=== PATIENT | female | born 1960 | race Caucasian/White ===

== ENCOUNTER 2021-09-29 14:30 | Outpatient (RCR) | payer BC, SELFPAY | END 2021-09-29 14:35 | disposition home or self-care (01) | LOC: PT 14:30 | PROVIDERS: PCP Family Medicine; Visit Provider Family Medicine Sports Medicine | DX: M65.811 Other synovitis and tenosynovitis, right shoulder (principal); M75.51 Bursitis of right shoulder | CPT/HCPCS: 97010; 97014; 97016; 97110; 97163; G0283 ==

== ENCOUNTER → 2022-04-26 09:35 | Outpatient (CLI) | payer BC, SELFPAY ==
[2022-04-26 19:21] LABS: Alanine Aminotransferase 19 U/L (12-78); Albumin/Globulin Ratio 1.6 (1.1-1.8); Alkaline Phosphatase 154 U/L (38-126); Anion Gap 11.3 mEq/L (5-15); Aspartate Amino Transferase 27 U/L (14-36); Bilirubin,Total 0.5 mg/dl (0.2-1.3); Blood Urea Nitrogen 17 mg/dl (7-17); Calcium 9.6 mg/dl (8.4-10.2); Carbon Dioxide 29 mmol/L (22.0-30.0); Chloride 104 mmol/L (98-107); Chol/HDL Ratio 4.5 (1-3.5); Cholesterol 260 mg/dl (140-200); Estimated Glomerular Filt Rate 63 ml/min (>60); GFR (African American) 77 ML/MIN (>60); Globulin 2.5 g/dL (1.3-3.2); Glucose 92 mg/dl (74-100); HDL Cholesterol 58 mg/dl (40-60); Potassium 4.3 mmoL/L (3.5-5.1); Sodium 140 mmol/L (136-145); Total Protein,Serum 6.5 g/dl (6.3-8.2); Triglycerides 159 mg/dl (30-150); VLDL Cholesterol 32 mg/dL (0-40)
[2022-04-26 19:23] LABS: Basophils # 0.1 K/mm3 (0-0.2); Basophils % 1.2 % (0.1-2.0); Eosinophils # 0.2 K/mm3 (0.0-0.4); Eosinophils % 3.1 % (0.1-12.0); Hematocrit 42.8 % (37.0-47.0); Hemoglobin 13.4 g/dL (12.2-16.2); Lymphocytes # 1.4 K/mm3 (0.7-4.5); Lymphocytes % 24.1 % (10-50); Mean Corpuscular HGB Conc 31.4 g/dL (31.8-35.4); Mean Corpuscular Hemoglobin 29.6 pg (27.0-31.2); Mean Corpuscular Volume 94.3 fl (81-99); Mean Platelet Volume 9.8 fl (7.4-10.4); Monocytes # 0.3 K/mm3 (0.1-1.0); Monocytes % 5.2 % (1.7-9.3); Neutrophils # 3.8 K/mm3 (1.8-7.8); Neutrophils % 66.5 % (37.0-80.0); Platelet Count 292 K/mm3 (142-424); Red Blood Count 4.54 M/mm3 (4.20-5.40); White Blood Count 5.7 K/mm3 (4.8-10.8)
[2022-04-26 19:36] LABS: Free T4 (Free Thyroxine) 1.52 ng/dl (0.78-2.19)
[2022-04-26 19:37] LABS: 25-OH Vitamin D, Total 85.6 ng/mL (30-100)
[2022-04-26 19:51] LABS: Thyroid Stimulating Hormone 1.16 uIU/mL (0.465-4.68)
[2022-04-26 20:09] LABS: Hemoglobin A1C 5.7 % (4.0-6.0)
[2022-04-26 20:33] LABS: Direct LDL Cholesterol 151.93 mg/dL (100-129)
== END ==
PROVIDERS: PCP Nurse Practitioner; Visit Provider Nurse Practitioner
DX: E03.9 Hypothyroidism, unspecified (principal); R73.09 Other abnormal glucose; E55.9 Vitamin D deficiency, unspecified
CPT/HCPCS: 80053; 80061; 82306; 83036; 84439; 84443; 85025

== ENCOUNTER → 2023-01-05 08:54 | Outpatient (CLI) | payer BC, SELFPAY ==
[2023-01-04 19:55] LABS: Vitamin B12 387 pg/mL (239-931)
[2023-01-04 20:06] LABS: Alanine Aminotransferase 43 U/L (12-78); Albumin Level 3.9 g/dl (3.5-5.0); Albumin/Globulin Ratio 1.4 (1.1-1.8); Alkaline Phosphatase 146 U/L (38-126); Anion Gap 9.4 mEq/L (5-15); Aspartate Amino Transferase 39 U/L (14-36); Bilirubin,Total 0.4 mg/dl (0.2-1.3); Blood Urea Nitrogen 19 mg/dl (7-17); Calcium 9.1 mg/dl (8.4-10.2); Carbon Dioxide 29 mmol/L (22.0-30.0); Chloride 105 mmol/L (98-107); Chol/HDL Ratio 2.6 (1-3.5); Cholesterol 176 mg/dl (140-200); Direct LDL Cholesterol 82.01 mg/dL (100-129); Estimated Glomerular Filt Rate 56 ml/min (>60); GFR (African American) 68 ML/MIN (>60); Globulin 2.8 g/dL (1.3-3.2); Glucose 94 mg/dl (74-100); HDL Cholesterol 69 mg/dl (40-60); Potassium 4.4 mmoL/L (3.5-5.1); Sodium 139 mmol/L (136-145); Total Protein,Serum 6.7 g/dl (6.3-8.2); Triglycerides 114 mg/dl (30-150); VLDL Cholesterol 23 mg/dL (0-40)
== END ==
PROVIDERS: PCP Family Medicine; Visit Provider Family Medicine
DX: I10 Essential (primary) hypertension (principal); E53.8 Deficiency of other specified B group vitamins; E78.5 Hyperlipidemia, unspecified
CPT/HCPCS: 80053; 80061; 82607

== ENCOUNTER 2023-08-09 19:15 | Outpatient (CLI) | payer BC, SELFPAY ==
[2023-08-09 19:44] LABS: Alanine Aminotransferase 26 U/L (12-78); Albumin Level 4.1 g/dl (3.5-5.0); Albumin/Globulin Ratio 1.6 (1.1-1.8); Alkaline Phosphatase 140 U/L (38-126); Anion Gap 8.2 mEq/L (5-15); Aspartate Amino Transferase 31 U/L (14-36); Bilirubin,Total 0.6 mg/dl (0.2-1.3); Blood Urea Nitrogen 19 mg/dl (7-17); Calcium 9.2 mg/dl (8.4-10.2); Carbon Dioxide 31 mmol/L (22.0-30.0); Chloride 104 mmol/L (98-107); Chol/HDL Ratio 3.9 (1-3.5); Cholesterol 231 mg/dl (140-200); Estimated Glomerular Filt Rate 56 ml/min (>60); GFR (African American) 68 ML/MIN (>60); Globulin 2.6 g/dL (1.3-3.2); Glucose 94 mg/dl (74-100); HDL Cholesterol 60 mg/dl (40-60); Potassium 4.2 mmoL/L (3.5-5.1); Sodium 139 mmol/L (136-145); Total Protein,Serum 6.7 g/dl (6.3-8.2); Triglycerides 121 mg/dl (30-150); VLDL Cholesterol 24 mg/dL (0-40)
[2023-08-09 20:14] LABS: Thyroid Stimulating Hormone 1.12 uIU/mL (0.465-4.68)
== END 2023-08-09 23:59 ==
LOC: LAB.DROPOF 19:15
PROVIDERS: PCP Family Medicine; Visit Provider Family Medicine
DX: E78.5 Hyperlipidemia, unspecified (principal); E03.8 Other specified hypothyroidism
CPT/HCPCS: 80053; 80061; 84443

== ENCOUNTER 2024-02-28 12:12 | Outpatient (CLI) | payer BC, SELFPAY ==
[2024-02-28 18:43] LABS: Basophils % 0.3 % (0.1-2.0); Eosinophils # 0.2 K/mm3 (0.0-0.4); Eosinophils % 2.1 % (0.1-12.0); Hematocrit 35.6 % (37.0-47.0); Lymphocytes # 1.3 K/mm3 (0.7-4.5); Lymphocytes % 14.3 % (10-50); Mean Corpuscular HGB Conc 30.9 g/dL (31.8-35.4); Mean Corpuscular Hemoglobin 31.6 pg (27.0-31.2); Mean Corpuscular Volume 102.4 fl (81-99); Mean Platelet Volume 9.2 fl (7.4-10.4); Monocytes # 0.3 K/mm3 (0.1-1.0); Monocytes % 3.8 % (1.7-9.3); Neutrophils # 6.9 K/mm3 (1.8-7.8); Neutrophils % 79.4 % (37.0-80.0); Platelet Count 206 K/mm3 (142-424); Red Blood Count 3.47 M/mm3 (4.20-5.40); Red Cell Distribution Width 16.1 % (11.5-17.5); White Blood Count 8.7 K/mm3 (4.8-10.8)
[2024-02-28 19:07] LABS: Anion Gap 6.6 mEq/L (5-15); Blood Urea Nitrogen 15 mg/dl (7-17); Calcium 8.8 mg/dl (8.4-10.2); Carbon Dioxide 31 mmol/L (22.0-30.0); Chloride 106 mmol/L (98-107); Estimated Glomerular Filt Rate 56 ml/min (>60); GFR (African American) 68 ML/MIN (>60); Glucose 95 mg/dl (74-100); Potassium 3.6 mmoL/L (3.5-5.1); Sodium 140 mmol/L (136-145)
[2024-02-28 19:35] LABS: Thyroid Stimulating Hormone 0.73 uIU/mL (0.465-4.68)
== END 2024-02-28 23:59 | disposition home or self-care (01) ==
LOC: LAB.DROPOF 02-29 12:15
PROVIDERS: PCP Family Medicine; Visit Provider Family Medicine
DX: E03.9 Hypothyroidism, unspecified (principal); C50.919 Malignant neoplasm of unspecified site of unspecified female breast
CPT/HCPCS: 80048; 84443; 85025

== ENCOUNTER 2025-01-18 11:30 | Outpatient (CLI) | payer MEDICARE, OTHER, SELFPAY ==
--- OUTSIDE RECORDS SUMMARY | 2024-12-07 10:25 | XMS_ITS | Encounter Summary ---
Author Organization [place] [address] Care Team Providers Care Real Estate Accountant Name Role Phone Yony Walker MD Primary Care Provider [phone] Charlotte Alvarado MD Unavailable [phone]- [phone] Reason for Referral * MRI/CAT Scan (Routine) - Pending Review Specialty Diagnoses / Procedures Referred By Ventura t Referred To Contact Radiology Diagnoses Invasive ductal carcinoma of breast, female, left (HCC) Malignant neoplasm of overlapping sites of left female breast, unspecified estrogen receptor status (HCC) Procedures PET CT SKULL BASE TO MID THIGH Charlotte Alvarado MD [address] [place] [address] Phone: tel: fax: [facility], [place] [address] Phone: tel: fax: Referral ID Status Reason Start Date Expiration Date V isits Requested Visits Authorized [id number] Pending Review 11/09/2024 11/09/2025 5 5 Reason for Visit * MRI/CAT Scan (Routine) - Pending Review Specialty Diagnoses / Procedures Referred By Contac t Referred To Contact Radiology Diagnoses Invasive ductal carcinoma of breast, female, left (HCC) Malignant neoplasm of overlapping sites of left female breast, unspecified estrogen receptor status (HCC) Procedures PET CT SKULL BASE TO MID THIGH Charlotte Alvarado MD [address] [place] [address] Phone: tel: fax: [facility], [place] [address] Phone: tel: fax: Referral ID Status Reason Start Date Expiration Date V isits Requested Visits Authorized [id number] Pending Review 11/09/2024 11/09/2025 5 5 Encounter Details Date Type Department Care Team (Latest Contact Info) Description 12/07/2024 10:25 AM EDT - 12/07/2024 1:33 PM EDT Hospital Encounter [facility], [place] [address] Charlotte Alvarado MD [address] [place] [address] Pre-procedural laboratory examination (Primary Dx); Invasive ductal carcinoma of breast, female, left (HCC); Malignant neoplasm of overlapping sites of left female breast, unspecified estrogen receptor status (HCC) Discharge Disposition: Home or Self Care Social History Tobacco Use Types Packs/Day Years Used Date Smoking Tobacco: Never Smokeless Tobacco: Never Alcohol Use Standard Drinks/Week Comments No 0 (1 standard drink = 0.6 oz pur e alcohol) PHQ-2 Answer Date Recorded PHQ-2 Total Score 0 03/30/2024 Sexually Active Control Partners Comments Yes Post-menopausal Male Comments No Sex and Gender Information Value Date Recorded Sex Assigned at Not on file Legal Sex Female 10:38 AM EST Gender Identity Not on file Sexual Orientation Not on file documented as of this encounter Medications at Time of Discharge acyclovir (ZOVIRAX) 400 mg Oral TabletIndications :H/O cold sores Take 1 Tablet by mouth 2 times daily. 60 Tablet 4 06/29/2024 Calcium Citrate-Vitamin D3 200 mg-3.125 mcg (125 unit) Oral Tablet Take 125 mcg by mouth daily. fluticasone propionate (FLONASE) 50 mcg/actuation Nasl [place], Suspension 1 [place] by Nasal route daily. ibuprofen (ADVIL;MOTRIN) 600 mg Oral Tablet Take 600 mg by mouth 3 times daily. 06/21/2023 LEVOthyroxine (SYNTHROID) 75 mcg Oral Tablet Take 75 mcg by mouth daily. lisinopriL-hydroc hlorothiazide (PRINZIDE;ZESTORE TIC) 10-12.5 mg Oral Tablet Take 0.5 Tablets by mouth daily. 09/30/2022 loperamide (IMODIUM) 2 mg Oral CapsuleIndication s:Invasive ductal carcinoma of breast, female, left (HCC) Take 4 mg by mouth for the first dose and then 2 mg by mouth as needed with every loose bowel movement up to a total of 16 mg/day(8 caps/day). 100 Capsule 2 10/13/2023 multivitamin (THERAGRAN) Oral Tablet Take 1 Tablet by mouth daily. pantoprazole (PROTONIX) 40 mg Oral Tablet, Delayed Release (E.C.)Indications :Gastroesophageal reflux disease without esophagitis Take 1 Tablet by mouth daily. 90 Tablet 4 10/12/2024 prochlorperazine (COMPAZINE) 10 mg Oral TabletIndications :Invasive ductal carcinoma of breast, female, left (HCC) Take 1 tablet by mouth every 6 hours as needed for nausea and vomiting. 30 Tablet 5 09/22/2023 rosuvastatin (CRESTOR) 10 mg Oral Tablet Take 10 mg by mouth daily. 12/19/2023 documented as of this encounter Discharge Disposition Disposition Code Departure Means Destination Home or Self Care documented in this encounter Plan of Treatment Upcoming Encounters Date Type Department Care Team (Late st Contact Info) Description 02/01/2025 8:45 AM EDT Appointment [facility] [place] [address] 02/01/2025 9:15 AM EDT [facility]ointment [facility] [place] [address] Charlotte Alvarado MD [address] [place] [address] 02/01/2025 9:30 AM EDT Appointment [place] [address] 02/08/2025 10:30 AM EDT Appointment [place] [address] 03/01/2025 10:00 AM EDT Appointment [facility] [place], [place] [id number] 03/01/2025 10:30 AM EDT [facility]ointment [facility] [place], [place] [id number] Charlotte Alvarado MD [address] [place] [address] 03/01/2025 11:00 AM EDT Appointment [facility] [place], [place] [id number] 03/08/2025 10:30 AM EDT Appointment [facility] [place], [place] [id number] 04/02/2025 11:20 AM EDT Office Visit [facility] [address] [address] Melony Paula, [employer] SEC[employer]ITY GUARD [address] [place] [address] documented as of this encounter Goals Goal Patient Goal Type Associated Problems Recent Progress Patient-Stated? Author Breast [facility] Breast Health On track(2020 11:50 AM EDT) Rebecca Geiger, RN Note: Patient acknowledges understanding of new diagnosis, plan of care, available resources and how to contact Nurse Navigator with any future questions or concerns. Breast [facility] Breast Health No Tere Saucedo, RN Note: Patient will maintain a healthy weight. Breast [facility] Breast Health No Basia Martínez, RN Note: Patient will be compliant with monthly Self Breast Exams and is aware of to who to contact for any unusual or concerning findings. documented as of this encounter Procedures Procedure Name Priority Date/Time Associated Diagnosis Comments PET CT SKULL BASE TO MID THIGH Routine 12/07/2024 12:04 PM EDT Invasive ductal carcinoma of breast, female, left (HCC) Malignant neoplasm of overlapping sites of left female breast, unspecified estrogen receptor status (HCC) GLUCOSE METER POC Routine 12/07/2024 10: 30 AM EDT documented in this encounter Results * PET CT SKULL BASE TO MID THIGH (12/07/2024 12:04 PM EDT) Anatomical Region Laterality Modality Positron Emissio n Tomography (PET) 12/07/2024 12:0 4 PM EDT Impressions 12/07/2024 1:16 PM EDT There is a new focus of hypermetabolic activity in the deep right breast at approximately 4:30 location. There is a new hypermetabolic mediastinal lymph node anterior to the right mainstem bronchus. There is increased hypermetabolic activity involving right hilar lymph nodes. There is similar hypermetabolic activity in subcarinal lymph node. - Note: Radiology results need to be interpreted within a comprehensive clinical context. If you have questions about the radiology report, please contact the office of the ordering clinician. Narrative 12/07/2024 1:[address] SKULL BASE TO MID THIGH, 12/07/2024 12:04 PM CLINICAL HISTORY: C50.912-Malignant neoplasm of unspecified site of left female breast (HCC)-ICD-10-CM C50.812-Malignant neoplasm of overlapping sites of left female breast (HCC)-ICD-10-CM. COMPARISON: Prior PET CTs, most recent 08/23/2024. PROCEDURE COMMENTS: 14 mCi 18F-fluorodeoxyglucose (FDG) was administered I.V. Serum blood glucose at the time of the injection was 84 mg/dL. Uptake time was approximately 45 minutes. Scanning performed from the skull vertex to the mid thigh. As an integrated part of the study, noncontrast CT scanning performed for attenuation correction and localization purposes. Dose 1 : CT DLP Total : 418.13 mGycm DLP Spiral Max : 409.91 mGycm Maximum CTDI Vol : 3.85 mGy FINDINGS: Normal distribution of physiologic background activity was present including gastrointestinal, genitourinary, cardiovascular, neurologic systems. Index activity in the right lobe of the liver was 2.5 SUV max. Head and Neck: No hypermetabolic foci. Chest: There is a new focus of hypermetabolic activity in the deep right breast at approximately 4:30 location demonstrating 3.9 SUV max. Increased hypermetabolic activity involving right hilar lymph nodes now measuring up to 6.6 SUV max versus 5.4 on prior. There is similar hypermetabolic activity in subcarinal lymph node measuring 5.2 SUV max versus 5.5 on prior. There is a new hypermetabolic mediastinal lymph node anterior to the right mainstem bronchus measuring 3.9 SUV max. Abdomen and pelvis: No hypermetabolic foci. Musculoskeletal: Diffuse activity throughout the axial and proximal appendicular skeletal medullary bone suggesting red marrow hyperplasia.. Notable CT findings: No developing mass lesion. Procedure Note Roscoe Pollock MD - 12/07/[address] SKULL BASE TO MID THIGH, 12/07/2024 12:04 PM CLINICAL HISTORY: C50.912-Malignant neoplasm of unspecified site of leftfemale breast (HCC)-ICD-10-CM C50.812-Malignant neoplasm of overlapping sites of left female breast (HCC)-ICD-10-CM. COMPARISON: Prior PET CTs, most recent 08/23/2024. PROCEDURE COMMENTS: 14 mCi 18F-fluorodeoxyglucose (FDG) was administeredI.V. Serum blood glucose at the time of the injection was 84 mg/dL. Uptake timewas approximately 45 minutes. Scanning performed from the skull vertex to themid thigh. As an integrated part of the study, noncontrast CT scanningperformed for attenuation correction and localization purposes. Dose 1 : CT DLP Total : 418.13 mGycm DLP Spiral Max : 409.91 mGycm Maximum CTDI Vol : 3.85 mGy FINDINGS: Normal distribution of physiologic background activity waspresent including gastrointestinal, genitourinary, cardiovascular, neurologicsystems. Index activity in the right lobe of the liver was 2.5 SUV max. Head and Neck: No hypermetabolic foci. Chest: There is a new focus of hypermetabolic activity in the deep rightbreast at approximately 4:30 location demonstrating 3.9 SUV max. Increased hypermetabolic activity involving right hilar lymph nodes now measuring upto 6.6 SUV max versus 5.4 on prior. There is similar hypermetabolic activityin subcarinal lymph node measuring 5.2 SUV max versus 5.5 on prior. There luanne new hypermetabolic mediastinal lymph node anterior to the right mainstembronchus measuring 3.9 SUV max. Abdomen and pelvis: No hypermetabolic foci. Musculoskeletal: Diffuse activity throughout the axial and proximal appendicular skeletal medullary bone suggesting red marrow hyperplasia.. Notable CT findings: No developing mass lesion. IMPRESSION: There is a new focus of hypermetabolic activity in the deep right breastat approximately 4:30 location. There is a new hypermetabolic mediastinallymph node anterior to the right mainstem bronchus. There is increasedhypermetabolic activity involving right hilar lymph nodes. There is similarhypermetabolic activity in subcarinal lymph node. - Note: Radiology results need to be interpreted within a comprehensiveclinical context. If you have questions about the radiology report, please contactthe office of the ordering clinician. us Charlotte Alvarado MD IMG PET ORDERABLES F inal Result * GLUCOSE METER POC (12/07/2024 10:30 AM EDT) [facility] Glucose Meter POC 84 70 - 100 mg/dL 12/07/2024 10:32 AM EDT [facility] Sample Type Capillary 12/07/2024 10:32 AM EDT [facility] Patient Status Non-Critical Patient 12/07/2024 10:32 AM EDT [facility] Blood BLOOD SPECIMEN / Unknown 12/07/2024 10:30 AM EDT 12/07/2024 10:32 AM EDT us Charlotte Alvarado MD POINT OF CARE TEST O RDERABLES Final Result [facility] [address] [place] [address] documented in this encounter Visit Diagnoses Diagnosis Pre-procedural laboratory examination- Primary Invasive ductal carcinoma of breast, female, left (HCC) Malignant neoplasm of overlapping sites of left female breast, unspecified estrogen receptor status (HCC) documented in this encounter Administered Medications Inactive Administered Medications - up to 1 most recent administrations Medication Order MAR Action Action Date Dose Rate Site fluorodeoxyglucose (FDG) injection 14 millicurie 14 millicurie, Intravenous, ONCE PRN, 1 dose, Starting on Tue12/07/24 at 1052, Until Tue12/07/24 at 1035, Radiography/Imaging, Radiology Procedure, Administration dose must be within 10% of the ordered dose for radiopharmaceutical medications., Radiology Given 12/07/2024 10:35 AM EDT 14 millicuries Right Arm sodium chloride 0.9% syringe Intravenous, ONCE PRN, 1 dose, Starting on Tue12/07/24 at 1052, Until Tue12/07/24 at 1035, Line Care, Flush peripheral lines every 12 hours, central lines every 8 hours, and after IV medication, Radiology Given 12/07/2024 10:35 AM EDT 10 mL Right Arm documented in this encounter Care Teams Real Estate Accountant Relationship Specialty Start Date End Date Yony Walker MD [address] [place] [address] PCP - General Family Medicine 04/07/20 Charlotte Alvarado MD [address] [place] [address] Medical Oncologist Internal Medicine-Hematology and Oncology 05/14/20 documented as of this encounter
--- OUTSIDE RECORDS SUMMARY | 2024-12-07 13:34 | XMS_ITS | Encounter Summary ---
Author Organization [place] [address] Care Team Providers Care Public Health Director Name Role Phone Yony Walker MD Primary Care Provider [phone] [phone] Charlotte Alvarado MD Unavailable [phone]- [phone] Reason for Visit * Physical Therapy (Routine) - Pending Review Specialty Diagnoses / Procedures Referred By Contac t Referred To Contact Physical Therapist / Physical Therapy Diagnoses Lymphedema of left arm Invasive ductal carcinoma of breast, female, left (HCC) Atser Parks, TONGUE AND GROOVE MACHINE FEEDER [address] [place] [address] Phone: tel: fax: Denisa Dueñas PT Referral ID Status Reason Start Date Expiration Date Visits Requested Visits Authorized [id number] Pending Review Specialty Services Required 09/14/2024 09/14/2025 1 20 Encounter Details Date Type Department Care Team (Latest Contact Info) Description 12/07/2024 1:34 PM EDT - 12/07/2024 11:59 PM EDT Hospital Encounter [facility] Physical Therapy [address] [place] [address] Denisa Dueñas, NOÉ Discharge Disposition: Home or Self Care Social [...] on file documented as of this encounter Discharge Summaries * Denisa Dueñas, PT - 12/07/2024 1:45 PM EDT Images from the original note were not included. Outpatient Physical Therapy Discharge Summary Date: 12/07/2024 Name: Michelle Nolan : 1960 Subjective: Patient is a 64 y.o. female referred to OPPT by Aster Parks APRN. Onset Date: 09/06/24 Diagnosis: Left UE Lymphedema Objective: Patient seen by OPPT from 10/19/24 to 12/07/24 for 2 visits Treatment consisted of therex, manual therapy Medication change: Calcium Patient Status at Discharge: FOTO Score & PSFS FOTO??: (1-100) Initial 10/19/2024 Re-Assess Score (Predicted) 72 (77) 73 PSFS: Patient will be able to... (0-10) Handwork 10/27 11/27 Sew 10/27 11/27 Hold items 10/27 12/27 Girth Measurements: Date: 12/07/24 10/19/2024 10/19/2024 (cm) Left Left Right Metacarpals 18.5 18.5 18.8 Diagonal Palm 19.9 20.8 20.2 1st IPJ 6.1 6.2 6.4 2nd DIP 5.4 5.2 5.4 2nd PIP 6.0 6.0 6.3 3rd DIP 5.3 5.3 5.4 3rd PIP 5.8 5.7 5.8 4th DIP 5.0 5.0 5.0 4th PIP 5.3 5.4 5.5 5th DIP 4.6 4.7 4.5 5th PIP 5.1 5.3 5.2 Wrist 16.8 16.5 15.5 2 above 19.4 19.2 16.5 4 above 22.7 21.2 19.5 6 above 26.0 25.5 22.5 8 above 27.7 27.0 24.1 Elbow 27.8 28.0 25.0 2 above 30.0 29.4 26.6 4 above 31.0 31.0 28.4 6 above 30.6 31.6 30.2 Chest/Breast Circumference 97.0 93.2 Axillary Circumference 97.0 94.0 Umbilical Circumference 90.9 89.1 Steps to lymphedema prevention: Independent HEP: Independent Self MLD: Independent as able - waiting on home pump Compression: Independent Assessment: Pt has been compliant with her self care for > 4 weeks as documented above, but symp are actually a little worse than on eval. Pt is hoping that the home pump will give her better clearance of thefluid Goals Short Term Goals (set for 2 weeks) Patient will be independent with HEP in order to promote long-term health and reduce risk for injury. [] Unmet [] Progressing [x] Met Patient will demonstrate/verbalize understanding of the steps to lymphedema prevention to minimize risk of progression [] Unmet [] Progressing [x] Met Obtain compression garment with independent donning/doffing. [] Unmet [] Progressing [x] Met Senior Care Goals: (set for 6 weeks) Patient will demonstrate independence with compression application to decrease lymphedema progression [] Unmet [] Progressing [x] Met Patient will be independent with self MLD to decrease lymphedema progression [] Unmet [] Progressing [x] Met Waiting on home pump Patient will present with reduction in girth measurements by 0.3 cm to increase functional use of the affected extremity [x] Unmet [] Progressing [] Met Improve PSFS scores by 2 points to show overall improvement with increase ease with use of left hand [] Unmet [x] Progressing [] Met Improve function score on FOTO to 75 for increase ease with use of left hand [] Unmet [x] Progressing [] Met Plan: Patient is currently discharged from OPPT Advised to continue self care Denisa Dueñas, PT 12/07/2024 documented in this encounter Medications at Time of Discharge acyclovir (ZOVIRAX) 400 mg Oral TabletIndications :H/O cold sores Take 1 Tablet by mouth 2 times daily. 60 Tablet 4 06/29/2024 Calcium Citrate-Vitamin D3 200 mg-3.125 mcg (125 unit) Oral Tablet Take 125 mcg by mouth daily. fluticasone propionate (FLONASE) 50 mcg/actuation Nasl [place], Suspension 1 [place] by Nasal route daily. ibuprofen (ADVIL;MOTRIN) 600 [...] or Self Care documented in this encounter Progress Notes * Provider, Unknown - 12/07/2024 3:44 PM EDT * Denisa Dueñas, PT - 12/07/2024 1:45 PM EDT Images from the original note were not included. Lymphedema PT Reassessment/Treatment Note (Reassessment for dates 10/19/24 to 12/07/24) Patient Name: Michelle Nolan : 1960 Visit #: 2 Onset Date: 09/06/24 MD Diagnosis: Lymphedema of left arm Invasive ductal carcinoma of breast, female, left (HCC) Restrictions/Precautions: [place] Hx [place] Referring Physician: Charly Radiation Oncologist: Dr. Myrick Medical Oncologist: Dr. Alvarado Surgeon: Dr. Tahmina HERRERA Follow Up: 12/10/24 Evaluation Date: 10/19/2024 Reassessment Due: 01/06/25 Primary Insurance: MEDICARE/MEDICARE [place] PART A AND B Secondary Insurance: [employer] Insurance Authorization: AMB REFERRAL TO PHYSICAL THERAPY Authorized (09/14/2024-09/14/2025) Visits Requested Visits Authorized Visits Completed Visits Scheduled Details Referral ID: [id number] Authorization Status Reason: Covered Benefit Authorization Comments: -- Referred To: Denisa Dueñas, PT at [facility] PT Referred By: Aster Parks APRN at [facility], [facility] Creation Date: 09/14/2024 Referral Reasons: Specialty Services Required Referral Order: AMB REFERRAL TO PHYSICAL THERAPY Time In/Out: 1345/1441 Timed Treatment Minutes: Manual therapy techniques 45 minutes Therapeutic Exercise 11 minutes Total Timed Code Treatment Minutes: 56 Untimed Treatment Minutes: None Total Treatment Minutes: 56 Medication Changes: Calcium Subjective: Pt has been monitoring her diet, performing daily skin, wearing her 20-30 mmHg compression sleeve & glove, doing her exercises, performing daily self MLD, & elevating her left UE since she came to PT on 10/19/24 (> 4 weeks). Pt feels like the arm may be a little leon but isn't sure Objective/Treatment: FOTO Score & PSFS FOTO??: (1-100) Initial 10/19/2024 Re-Assess Score (Predicted) 72 (77) 73 PSFS: Patient will be able to... (0-10) Handwork 10/27 11/27 Sew 10/27 11/27 Hold items 10/27 12/27 Girth Measurements: Date: 12/07/24 10/19/2024 10/19/2024 (cm) Left Left Right Metacarpals 18.5 18.5 18.8 Diagonal Palm 19.9 20.8 20.2 1st IPJ 6.1 6.2 6.4 2nd DIP 5.4 5.2 5.4 2nd PIP 6.0 6.0 6.3 3rd DIP 5.3 5.3 5.4 3rd PIP 5.8 5.7 5.8 4th DIP 5.0 5.0 5.0 4th PIP 5.3 5.4 5.5 5th DIP 4.6 4.7 4.5 5th PIP 5.1 5.3 5.2 Wrist 16.8 16.5 15.5 2 above 19.4 19.2 16.5 4 above 22.7 21.2 19.5 6 above 26.0 25.5 22.5 8 above 27.7 27.0 24.1 Elbow 27.8 28.0 25.0 2 above 30.0 29.4 26.6 4 above 31.0 31.0 28.4 6 above 30.6 31.6 30.2 Chest/Breast Circumference 97.0 93.2 Axillary Circumference 97.0 94.0 Umbilical Circumference 90.9 89.1 Steps to lymphedema prevention: Independent HEP: Independent Self MLD: Independent as able - waiting on home pump Treatment Short Neck: Yes Chest (anterior): right Axilla: right Groin: left Abdominals: Superficial and Deep Breathing Upper extremity: left With patient in Supine Compression: Sleeve: Independent Other: Removal instructions given, including symptoms of circulation compromise: Yes Instructed to call with any questions or problems: Yes HEP Issued: Yes Self MLD handout issued, with instruction: Yes Additional comments: Advised pt to con't with self care & to contact PT with any future questions/concerns. Sent updated measurements to [employer] Assessment Pt has been compliant with her self care for > 4 weeks as documented above, but symp are actually a little worse than on eval. Pt is hoping that the home pump will give her better clearance of thefluid Goals Short Term Goals (set for 2 weeks) Patient will be independent with HEP in order to promote long-term health and reduce risk for injury. [] Unmet [] Progressing [x] Met Patient will demonstrate/verbalize understanding of the steps to lymphedema prevention to minimize risk of progression [] Unmet [] Progressing [x] Met Obtain compression garment with independent donning/doffing. [] Unmet [] Progressing [x] Met Street Openings Inspector Goals: (set for 6 weeks) Patient will demonstrate independence with compression application to decrease lymphedema progression [] Unmet [] Progressing [x] Met Patient will be independent with self MLD to decrease lymphedema progression [] Unmet [] Progressing [x] Met Waiting on home pump Patient will present with reduction in girth measurements by 0.3 cm to increase functional use of the affected extremity [x] Unmet [] Progressing [] Met Improve PSFS scores by 2 points to show overall improvement with increase ease with use of left hand [] Unmet [x] Progressing [] Met Improve function score on FOTO to 75 for increase ease with use of left hand [] Unmet [x] Progressing [] Met Plan Discharge with the hope that pt gets her home pump soon Electronically signed by: Signed: Denisa Dueñas PT Date: 12/07/2024 documented in this encounter Plan of Treatment Upcoming Encounters Date Type Department Care Team (Late st Contact Info) Description 02/01/2025 8:45 AM EDT Appointment [facility] [address] 02/01/2025 9:15 AM EDT [facility]ointment [facility] [place] [address] Charlotte Alvarado MD [address] [place] [address] 02/01/2025 9:30 AM EDT [facility] [place] [address] 02/08/2025 10:30 AM EDT [facility]ointment [facility] [place] [address] 03/01/2025 10:00 AM EDT Appointment [facility] [place] [address] 03/01/2025 10:30 AM EDT Appointment [facility] [place] [address] Charlotte Alvarado MD [address] [place] [address] 03/01/2025 11:00 AM EDT Appointment [facility] [place] [address] 03/08/2025 10:30 AM EDT Appointment [facility] [place], [place] [id number] 04/02/2025 11:20 AM EDT Office Visit [facility] [address] [facility] [address] [place] [address] Melony Paula, VACUUM CONDITIONER OPERATOR [address] [place] [address] documented as of this encounter Goals Goal Patient Goal Type Associated Problems Recent Progress Patient-Stated? Author Breast Health Breast Health On track(2020 11:50 AM EDT) Rebecca Geiger, RN Note: Patient acknowledges understanding of new diagnosis, plan of care, available resources and how to contact Nurse Navigator with any future questions or concerns. Breast [facility] Breast Health No Tere Saucedo, RN Note: Patient will maintain a healthy weight. Breast Health Breast Health No Basia Martínez, RN Note: Patient will be compliant with monthly Self Breast Exams and is aware of to who to contact for any unusual or concerning findings. documented as of this encounter Visit Diagnoses Not on filedocumented in this encounter Care Teams Public Health Director Relationship Specialty Start Date End Date Yony Walker MD [address] [facility] [address] [facility] [address] PCP - General Family Medicine 04/07/20 Charlotte Alvarado MD [address] [facility] [place] [id number] Medical Oncologist Internal Medicine-Hematology and Oncology 05/14/20 documented as of this encounter
--- OUTSIDE RECORDS SUMMARY | 2024-12-10 10:28 | XMS_ITS | Encounter Summary ---
Author Organization [place] [address] Care Team Providers Care Business Owner/Engineer Name Role Phone Yony Walker MD Primary Care Provider [phone] [phone] Charlotte Alvarado MD Unavailable [phone]- [phone] Irene Cheema RN Unavailable Unavailabl e Encounter Details Date Type Department Care Team (Latest Contact Info) Description 12/10/2024 10:28 AM EDT - 12/10/2024 10:48 AM EDT Hospital Encounter [place] [address] Charlotte Alvarado MD [address] [place] [address] Invasive ductal carcinoma of breast, female, left (HCC) (Primary Dx) Discharge Disposition: Home or Self Care Social [...] daily. fluticasone propionate (FLONASE) 50 mcg/actuation Nasl [place], Suspension 1 [place] by Nasal route daily. ibuprofen (ADVIL;MOTRIN) 600 [...] AM EDT Appointment [place] [address] 02/01/2025 9:15 AM EDT [facility]ointment [facility] [place] [address] Charlotte Alvarado MD [address] [place] [address] 02/01/2025 9:30 AM EDT Appointment [facility] [place] [address] 02/08/2025 10:30 AM EDT Appointment [facility] [place] [address] 03/01/2025 10:00 AM EDT Appointment [place] [address] 03/01/2025 10:30 AM EDT Appointment [facility] [place] [address] Charlotte Alvarado MD [address] [place] [address] 03/01/2025 11:00 AM EDT [facility] [place] [address] 03/08/2025 10:30 AM EDT [facility] [address] 04/02/2025 11:20 AM EDT Office Visit [facility] Pulmonology [facility] [address] [address] Melony Paula, LITHOGRAPH PRESS OPERATOR [address] [place] [address] documented as of this encounter Goals Goal Patient Goal Type Associated Problems Recent Progress Patient-Stated? Author Breast Health Breast Health On track(2020 11:50 AM EDT) Rebecca Geiger, RN Note: Patient acknowledges understanding of new diagnosis, plan of care, available resources and how to contact Nurse Navigator with any future questions or concerns. Breast Health Breast Health No Tere Saucedo, RN Note: Patient will maintain a healthy weight. Breast Health Breast Health No Basia Martínez, RN Note: Patient will be compliant with monthly Self Breast Exams and is aware of to who to contact for any unusual or concerning findings. documented as of this encounter Procedures Procedure Name Priority Date/Time Associated Diagnosis Comments CBC WITH DIFF STAT 12/10/2024 10:48 AM EDT Invasive ductal carcinoma of breast, female, left (HCC) COMPREHENSIVE METABOLIC PANEL STAT 12/10/2024 10:48 AM EDT Invasive ductal carcinoma of breast, female, left (HCC) documented in this encounter Results * (ABNORMAL) COMPREHENSIVE METABOLIC PANEL (12/10/2024 10:48 AM EDT) Sodium 141 136 - 145 mmol/L 12/10/2024 11:12 AM EDT [facility] Potassium 3.1(L) 3.5 - 5.0 mmol/L 12/10/2024 11:12 AM EDT [facility] Chloride 110(H) 98 - 107 mmol/L 12/10/2024 11:12 AM EDT [facility] Total CO2 23 22 - 29 mmol/L 12/10/2024 11:12 AM EDT [facility] Anion Gap 8 7 - 16 mmol/L 12/10/2024 11:12 AM EDT [facility] Calcium 8.0(L) 8.8 - 10.4 mg/dL 12/10/2024 11:12 AM EDT [facility] Glucose Lvl 92 70 - 99 mg/dL 12/10/2024 11:12 AM EDT [facility] BUN 11 8 - 23 mg/dL 12/10/2024 11:12 AM EDT [facility] Creatinine 0.89 0.51 - 1.30 mg/dL 12/10/2024 11:12 AM EDT [facility] Albumin 3.6 3.2 - 4.6 gm/dL 12/10/2024 11:12 AM EDT [facility] Total Protein 5.6(L) 6.4 - 8.3 gm/dL 12/10/2024 11:12 AM EDT [facility] Bili Total <0.2(L) 0.2 - 1.3 mg/dL 12/10/2024 11:12 AM EDT [facility] ALT 12 <=41 U/L 12/10/2024 11:12 AM EDT [facility] AST 15 <=40 U/L 12/10/2024 11:12 AM EDT [facility] Alk Phos 117 36 - 123 U/L 12/10/2024 11:12 AM EDT [facility] eGFR (CKD-EPIcr 2020) 72 >=60 mL/min/1.7 3 m2 12/10/2024 11:12 AM EDT [facility] Comment:Estimated GFR was ca lculated using the CKD-EPIcr (2020) equation refit without race. The equation is recommended by the National Kidney Foundation - [place] [employer] of Nephrology Task Force. Blood VENOUS STRUCTURE / Unknown Port / Unknown 12/10/2024 10:48 AM EDT 12/10/2024 10:51 AM EDT us Charlotte Alvarado MD CHEMISTRY ORDERABLES Final Result [place] [id number] * (ABNORMAL) CBC WITH DIFF (12/10/2024 10:48 AM EDT) WBC 5.0 3.7 - 10.3 x10(3)/mc L 12/10/2024 10:57 AM EDT [facility] RBC 3.41(L) 3.90 - 5.20 x10(6)/mc L 12/10/2024 10:57 AM EDT [facility] Hgb 10.9(L) 11.2 - 15.7 g/dL 12/10/2024 10:57 AM EDT [facility] Hct 33.5(L) 34.0 - 45.0 % 12/10/2024 10:57 AM EDT [facility] MCV 98.2 80.0 - 100.0 fL 12/10/2024 10:57 AM EDT [facility] MCH 32.0 26.0 - 34.0 pg 12/10/2024 10:57 AM EDT [facility] MCHC 32.5 30.7 - 35.5 g/dL 12/10/2024 10:57 AM EDT [facility] RDW 15.7(H) <=14.9 % 12/10/2024 10:57 AM EDT [facility] Platelet 274 155 - 369 x10(3)/mc L 12/10/2024 10:57 AM EDT [facility] MPV 10.1 8.8 - 12.5 fL 12/10/2024 10:57 AM EDT [facility] Neut # Prelim 3.7 1.6 - 6.1 x10(3)/mc L 12/10/2024 10:57 AM EDT [facility] Comment:Preliminary automate d absolute neutrophil count. Value may change if manual differential is indicated. Neut Percent 74.4 % 12/10/2024 10:57 AM EDT [facility] Comment:Neutrophils equals s egs plus bands Imm Gran% 0.0 % 12/10/2024 10:57 AM EDT [facility] Comment:Automated count of m etamyelocytes, myelocytes and promyelocytes. Lymph Percent 15.3 % 12/10/2024 10:57 AM EDT [facility] [place] Percent 8.5 % 12/10/2024 10:57 AM EDT [facility] Eos Percent 1.4 % 12/10/2024 10:57 AM EDT [facility] Baso Percent 0.4 % 12/10/2024 10:57 AM EDT [facility] Neut # 3.7 1.6 - 6.1 x10(3)/mc L 12/10/2024 10:57 AM EDT [facility] Comment:Neutrophils equals s egs plus bands IMMGRAN# 0.0 0.0 - 0.1 x10(3)/mc L 12/10/2024 10:57 AM EDT [facility] Comment:Automated count of m etamyelocytes, myelocytes and promyelocytes. An absolute IG <0.1 is reported as 0.0. Lymph # 0.8(L) 1.2 - 3.9 x10(3)/mc L 12/10/2024 10:57 AM EDT [facility] [place] # 0.4 0.3 - 0.9 x10(3)/mc L 12/10/2024 10:57 AM EDT [facility] Eos# 0.1 0.0 - 0.5 x10(3)/mc L 12/10/2024 10:57 AM EDT [facility] Baso # 0.0 0.0 - 0.1 x10(3)/mc L 12/10/2024 10:57 AM EDT [facility] Blood VENOUS STRUCTURE / Unknown Port / Unknown 12/10/2024 10:48 AM EDT 12/10/2024 10:51 AM EDT us Charlotte Alvarado MD HEMATOLOGY ORDERABLE S Final Result [facility] [address] [place], [place] [id number] documented in this encounter Visit Diagnoses Diagnosis Invasive ductal carcinoma of breast, female, left (HCC)- Primary documented in this encounter Administered Medications Inactive Administered Medications - up to 1 most recent administrations Medication Order MAR Action Action Date Dose Rate Site sodium chloride 0.9 % sterile syringe 10 mL 10 mL, Intravenous, ONCE, 1 dose, On Tue12/10/24 at 1045, For initial access of Venous Access Device., Dx: 1. Invasive ductal carcinoma of breast, female, left (HCC)Indications:Invasive ductal carcinoma of breast, female, left (HCC) Given 12/10/2024 10:48 AM EDT 10 mL documented in this encounter Orders Medications Ordered That Shaun ht Not Have Been Administered Count Last Ordered Date First Ordered Date sodium chloride 0.9 % steril e syringe 10 mL 1 12/10/2024 documented in this encounter Care Teams Business Owner/Engineer Relationship Specialty Start Date End Date Yony Walker MD [facility] [address] [facility] [place] [address] PCP - General Family Medicine 04/07/20 Charlotte Alvarado MD 1 [facility] [place] [id number] Medical Oncologist Internal Medicine-Hematology and Oncology 05/14/20 Irene Cheema RN Infusion Therapy 12/10/24 12/10/24 documented as of this encounter
--- OUTSIDE RECORDS SUMMARY | 2024-12-10 10:49 | XMS_ITS | Encounter Summary ---
Author Organization [place] [address] Care Team Providers Care Radio Electronics Technician Name Role Phone Ynoy Walker MD Primary Care Provider [phone] Charlotte Alvarado MD Unavailable [phone]- [phone] Irene Cheema RN Unavailable Unavailabl e Reason for Referral * Consultation (Routine) - Pending Review Specialty Diagnoses / Procedures Referred By Contac t Referred To Contact Pulmonology Diagnoses Invasive ductal carcinoma of breast, female, left (HCC) Hilar adenopathy Procedures IA OFFICE/OUTPATIENT NEW MODERATE MDM 45 MINUTES Charlotte Alvarado MD [address] [place] [address] Phone: tel: fax: Maryanne Lawler MD [address] [place] [address] Phone: tel: fax: Referral ID Status Reason Start Date Expiration Date V isits Requested Visits Authorized [id number] Pending Review 12/10/2024 12/10/2025 1 1 Comments Metastatic breast cancer and overall has been responding to tx. Would like evaluation of hilar adenopathy to see if related to this diagnosis vs alternative. Consider bronch/EBUS. Reason for Visit * Reason Comments Follow-up Breast Cancer Chemotherapy Results PET 12/07 Encounter Details Date Type Department Care Team (Latest Contact Info) Description 12/10/2024 10:49 AM EDT - 12/10/2024 11:22 AM EDT Hospital Encounter [facility] [place] [address] Charlotte Avlarado MD [address] [place] [id number] Invasive ductal carcinoma of breast, female, left (HCC) (Primary Dx); Hilar adenopathy Discharge Disposition: Home or Self Care Social [...] on file documented as of this encounter Last Filed Vital Signs Vital Sign Reading Time Taken Comments Blood Pressure 148/79 12/10/2024 10:54 AM EDT Pulse 93 12/10/2024 10:54 AM EDT Temperature 36.8 C (98.2 F) 12/10/2024 10:54 AM EDT Respiratory Rate 16 12/10/2024 10:54 AM EDT Oxygen Saturation 98% 12/10/2024 10:54 AM EDT Inhaled Oxygen Concentration - - Weight 69.4 kg (153 lb 1.6 oz) 12/10/2024 10:54 AM EDT Height 167.6 cm (5' 6 ) 12/10/2024 10:54 AM EDT Body Mass Index 24.71 12/10/2024 10:54 AM EDT documented in this encounter Medications at Time of Discharge acyclovir (ZOVIRAX) 400 mg Oral TabletIndications :H/O cold sores Take 1 Tablet by mouth 2 times daily. 60 Tablet 4 06/29/2024 Calcium Citrate-Vitamin D3 200 mg-3.125 mcg (125 unit) Oral Tablet Take 125 mcg by mouth daily. fluticasone propionate (FLONASE) 50 mcg/actuation Nasl Ronald, Suspension 1 Ronald by Nasal route daily. ibuprofen (ADVIL;MOTRIN) 600 [...] documented in this encounter Progress Notes * Charlotte Alvarado MD - 12/10/2024 11:00 AM EDT Images from the original note were not included. Patient: Michelle Nolan [facility]: [id number] Date of : 1960 Age: 64 y.o. Date of Service: 12/10/2024 HEMATOLOGY/ONCOLOGY FOLLOW UP VISIT Primary Lens Grinder Rough & Oncologist: Charlotte Alvarado MD DIAGNOSIS & TREATMENT HISTORY: Oncology History Invasive ductal carcinoma of breast, female, left (HCC) 03/14/2020 Initial Diagnosis Invasive ductal carcinoma of left breast 03/14/2020 - Pathology Left breast, 2:00, ill defined area with calcifications, core biopsy: - Invasive ductal carcinoma, grade 2. - Ductal carcinoma in situ, high nuclear grade, solid and cribriform types with comedonecrosis. - Microcalcifications are not identified. - Invasive tumor involves all cores, spanning up to 8 mm in greatest dimension. ER Low positive 4% IA Positive 2% HER2 Negative 03/31/2020 - Genetics [employer] 84: No actionable mutations detected. 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 - Extracapsular extension present. - Many invasive ductal carcinoma deposits (up to 1.5 cm in linear extent). - Lymphovascular invasion. - High grade ductal carcinoma in situ in background mammary tissue 04/18/2020 - 09/05/2020 Chemotherapy Dose dense adriamycin and cyclophosphamide + G-CSF every 14 days for 4 cycles, followed by weekly paclitaxel for 12 doses (dose reduced for neuropathy). Medical Oncologist: Dr. Charlotte Craig 04/23/2020 - Imaging PET Skull base to midthigh IMPRESSION: No evidence of metastatic neoplasm. Borderline hypermetabolic activity within 2 small LEFT axillary lymph nodes. 11/03/2020 - Pathology A) Lymph nodes, left axillary contents: - Metastatic ductal carcinoma noted in three of three lymph nodes. - One node with macro metastatic carcinoma, 2.2 mm in size with extracapsular extension. - Two lymph nodes with micro metastatic carcinoma. B) Left breast, segmentectomy: - Small focus of residual invasive ductal adenocarcinoma, Grade 2, about 1 mm in size; closest margin is inferior at 3 mm. - Residual extensive ductal carcinoma in situ, high grade; cribriform and solid patterns. - In situ carcinoma involves 7 out of 9 blocks of breast tissue. Therapy and previous biopsy effects noted. 12/08/2020 - 01/16/2021 Radiation Tx External beam radiotherapy to a total dose of 6000 cGy; 5000 cGy to left breast and supraclavicularnodes + 1000 cGy breast boost. Total of 30 fractions. Primary Radiation Oncologist: Dr. Myrick. Stage Clinical Stage IIIB (cT1, cN2a, cM0, G2, ER-, IA-, HER2-) Pathologic not assigned (ypT1mi pN1a M0) 02/2021 Medication Completed 8 cycles adjuvant xeloda 09/06/2023 - Pathology Left breast skin, punch biopsy: - Invasive ductal carcinoma in dermis, histologic grade 2 (2+3+1). - The invasive tumor measures 4 mm in size. 10/10/2023 - [id number]. Blood to be collected on 10/14/23 during visit. CURRENT TREATMENT: 04/18/2020 - dd AC + weekly T 02/18/2021 - adjuvant Xeloda, now changed to 7 days on and 7 days off, poor tolerance completed couple months of tx, completed 12/2021 Carboplatin, gemcitabine- started 09/23/2023 10/14/2023 - Trodelvy day 1 and 8 w/ g-csf support on 21 day cycle C1D8 was cancelled for neutropenia and 75% of original dose C6 further dose reduction to 50% of original dose INTERVAL HISTORY: Chief Complaint Patient presents with Follow-up Breast Cancer Chemotherapy Results PET 12/07 Michelle Nolan presents today for follow up and consideration of Trodelvy for recurrent TNBC, skinmets. Overall doing well. Not worsening of rash. Overall feels good. Some slight discomfort in right chest wall. MEDICATIONS: Medications and allergies reviewed PHYSICAL EXAM: Vitals: 12/10/24 1054 BP: 148/79 Pulse: 93 Resp: 16 Temp: 98.2 ??F (36.8 ??C) SpO2: 98% Wt Readings from Last 3 Encounters: 11/16/24 154 lb 4 oz (70 kg) 11/09/24 155 lb 4.8 oz (70.4 kg) 10/19/24 152 lb (68.9 kg) ECO Pertinent information Physical Exam Constitutional: Appearance: Normal appearance. Chest: Abdominal: General: Abdomen is flat. Palpations: Abdomen is soft. Musculoskeletal: Cervical back: Normal range of motion and neck supple. Neurological: Mental Status: She is alert. Psychiatric: Mood and Affect: Mood normal. Behavior: Behavior normal. MEDICAL DATA REVIEW: Laboratories, Images and Pathology results reviewed PET CT SKULL BASE TO MID THIGH Narrative: PET CT SKULL BASE TO MID THIGH, [...] Notable CT findings: No developing mass lesion. Impression: There is a new focus of hypermetabolic [...] contact the office of the ordering clinician. ASSESSMENT & PLAN 1. Invasive ductal carcinoma of breast, female, left (HCC) COMPREHENSIVE METABOLIC PANEL AMB REFERRAL TO PULMONOLOGY COMPREHENSIVE METABOLIC PANEL 2. Hilar adenopathy AMB REFERRAL TO PULMONOLOGY Triple negative breast cancer, stage IIIB cT1, cN2a, cM0, G2 now with recurrence in skin -s/p dd AC + weekly T followed by surgery and radiation therapy and capecitabine -PORT -post menopausal -reviewed biopsy showing recurrence to skin -Mar 2024 PET/CT with response -- continue with current regimen. -adjusted to day 1,8 with 2 weeks off based on symptoms --- she feels great on this schedule - willkeep on the same dose for now -CT PET 08/2024 reviewed and is overall stable. Would not change anything based on hilar and subcarinal lymph nodes (these are also partially calcified) -CT PET 11/2024 - the mediastinal and hilar nodes are brighter, would suggest referral to pulmonary for biopsy. We need to see if these are breast cancer or something else? -continue on current tx Lymphedema on exam -LUE visibly increased swelling and now includes hand General sensation changes/neuropathy -MRI thoracic and cervical spine pursed 02/12, copied above -- arthritis, some stenosis. Okay from oncologic standpoint, symptoms stable. 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 -Better since tx changed to sacituzumab, stable. Continue to monitor. Chemo induced neutropenia - ok for today -resolved with g-CSF Acute headache, vision changes, resolved - MRI Brain 10/21/23 with no evidence of metastatic disease. Genetics -MUTYH hetrozygote- had C scope 03/01/2023 and noted few diverticula. Repeat 5 years. Hypothyroidism -on synthroid 75 mcg daily -check TSH for recent thyroid activity on Pet scan- normal TSH 09/30/2023. CTM. Calcified granulomas and hx of abdominal abscess Bone Density -normal October 2020 Dispo: Next tx with [facility] Thank you for the opportunity to assist in the care of this patient, please feel free to contact meif I can be of any assistance. Charlotte Alvarado MD Hematology and Medical Oncology [facility] documented in this encounter Plan of Treatment Upcoming Encounters Date Type Department Care Team (Late st Contact Info) Description 02/01/2025 8:45 AM EDT Appointment [place] [address] 02/01/2025 9:15 AM EDT Appointment [place] [address] Charlotte Alvarado MD [address] [place] [address] 02/01/2025 9:30 AM EDT Appointment [facility] [place] [place] [id number] 02/08/2025 10:30 AM EDT Appointment [facility] [place], [place] [id number] 03/01/2025 10:00 AM EDT Appointment [facility] [place], [place] [id number] 03/01/2025 10:30 AM EDT Appointment [place] [address] Charlotte Alvarado MD [address] [place] [address] 03/01/2025 11:00 AM EDT Appointment [facility] [place], [place] [id number] 03/08/2025 10:30 AM EDT Appointment [facility] [place] [id number] 04/02/2025 11:20 AM EDT Office Visit [facility] [address] [phone] Melony Paula, [employer] [address] [place] [address] Scheduled Referrals Name Type Priority Associated Diagnoses Order Schedule AMB REFERRAL TO PULMONOLOGY Outpatient Referral Routine Invasive ductal carcinoma of breast, female, left (HCC) Hilar adenopathy Ordered: 12/10/2024 documented as of this encounter Goals Goal Patient Goal Type Associated Problems Recent Progress Patient-Stated? Author Breast [facility] Breast [facility] On track(2020 11:50 AM EDT) Rebecca Geiger, RN Note: Patient acknowledges understanding of new diagnosis, plan of care, available resources and how to contact Nurse Navigator with any future questions or concerns. Breast [facility] Breast [facility] No Tere Saucedo, RN Note: Patient will maintain a healthy weight. Breast [facility] Breast [facility] No Basia Martínez, RN Note: Patient will be compliant with monthly Self Breast Exams and is aware of to who to contact for any unusual or concerning findings. documented as of this encounter Results * (ABNORMAL) COMPREHENSIVE METABOLIC PANEL (12/17/2024 10:46 AM EDT) Sodium 138 136 - 145 mmol/L 12/17/2024 11:07 AM EDT [facility] Potassium 3.9 3.5 - 5.0 mmol/L 12/17/2024 11:07 AM EDT [facility] Chloride 103 98 - 107 mmol/L 12/17/2024 11:07 AM EDT [facility] Total CO2 25 22 - 29 mmol/L 12/17/2024 11:07 AM EDT [facility] Anion Gap 10 7 - 16 mmol/L 12/17/2024 11:07 AM EDT [facility] Calcium 8.7(L) 8.8 - 10.4 mg/dL 12/17/2024 11:07 AM EDT [facility] Glucose Lvl 101(H) 70 - 99 mg/dL 12/17/2024 11:07 AM EDT [facility] BUN 17 8 - 23 mg/dL 12/17/2024 11:07 AM EDT [facility] Creatinine 1.10 0.51 - 1.30 mg/dL 12/17/2024 11:07 AM EDT [facility] Albumin 3.8 3.2 - 4.6 gm/dL 12/17/2024 11:07 AM EDT [facility] Total Protein 6.4 6.4 - 8.3 gm/dL 12/17/2024 11:07 AM EDT [facility] Bili Total 0.2 0.2 - 1.3 mg/dL 12/17/2024 11:07 AM EDT [facility] ALT 13 <=41 U/L 12/17/2024 11:07 AM EDT [facility] AST 15 <=40 U/L 12/17/2024 11:07 AM EDT [facility] Alk Phos 122 36 - 123 U/L 12/17/2024 11:07 AM EDT [facility] eGFR (CKD-EPIcr 2020) 55(L) >=60 mL/min/1.7 3 m2 12/17/2024 11:07 AM EDT [facility] Comment:Estimated GFR was ca lculated using the CKD-EPIcr (2020) equation refit without race. The equation is recommended by the National Kid[employer] - [place] [employer] Neph[employer] Task Force. Blood VENOUS BLOOD / Unknown Port / Unknown 12/17/2024 10:46 AM EDT 12/17/2024 10:49 AM EDT us Charlotte Alvarado MD CHEMISTRY ORDERABLES Final Result [facility] [address] [place] [id number] * (ABNORMAL) COMPREHENSIVE METABOLIC PANEL (12/10/2024 11:41 AM EDT) Sodium 141 136 - 145 mmol/L 12/10/2024 12:01 PM EDT [facility] Potassium 3.6 3.5 - 5.0 mmol/L 12/10/2024 12:01 PM EDT [facility] Chloride 107 98 - 107 mmol/L 12/10/2024 12:01 PM EDT [facility] Total CO2 26 22 - 29 mmol/L 12/10/2024 12:01 PM EDT [facility] Anion Gap 8 7 - 16 mmol/L 12/10/2024 12:01 PM EDT [facility] Calcium 9.1 8.8 - 10.4 mg/dL 12/10/2024 12:01 PM EDT [facility] Glucose Lvl 98 70 - 99 mg/dL 12/10/2024 12:01 PM EDT [facility] BUN 12 8 - 23 mg/dL 12/10/2024 12:01 PM EDT [facility] Creatinine 1.00 0.51 - 1.30 mg/dL 12/10/2024 12:01 PM EDT [facility] Albumin 4.2 3.2 - 4.6 gm/dL 12/10/2024 12:01 PM EDT [facility] Total Protein 6.5 6.4 - 8.3 gm/dL 12/10/2024 12:01 PM EDT [facility] Bili Total 0.2 0.2 - 1.3 mg/dL 12/10/2024 12:01 PM EDT [facility] ALT 14 <=41 U/L 12/10/2024 12:01 PM EDT [facility] AST 17 <=40 U/L 12/10/2024 12:01 PM EDT [facility] Alk Phos 137(H) 36 - 123 U/L 12/10/2024 12:01 PM EDT [facility] eGFR (CKD-EPIcr 2020) 62 >=60 mL/min/1.7 3 m2 12/10/2024 12:01 PM EDT [facility] Comment:Estimated GFR was ca lculated using the CKD-EPIcr (2020) equation refit without race. The equation is recommended by the National Kid[employer] - [place] [employer] Neph[employer] Task Force. Blood VENOUS BLOOD / Unknown Port / Unknown 12/10/2024 11:41 AM EDT 12/10/2024 11:43 AM EDT us Charlotte Alvarado MD CHEMISTRY ORDERABLES Final Result [facility] [address] [place] [id number] documented in this encounter Visit Diagnoses Diagnosis Invasive ductal carcinoma of breast, female, left (HCC)- Primary Hilar adenopathy Enlargement of lymph nodes documented in this encounter Care Teams Radio Electronics Technician Relationship Specialty Start Date End Date Yony Walker MD [address] [facility] [address] [place] [address] PCP - General Family Medicine 04/07/20 Charlotte Alvarado MD [address] [place] [address] [id number] Medical Oncologist Internal Medicine-Hematology and Oncology 05/14/20 Irene Cheema senior android developer Therapy 12/10/24 12/10/24 documented as of this encounter
--- OUTSIDE RECORDS SUMMARY | 2024-12-10 11:23 | XMS_ITS | Encounter Summary ---
Author Organization [place] [place] [address] Care Team Providers Care Home Aide Name Role Phone Yony Walker MD Primary Care Provider [phone] Charlotte Alvarado MD Unavailable [phone] Irene Cheema RN Unavailable Unavailabl e Reason for Visit * Oncology Medication Prior Authorization (Routine) - Authorization Not Needed Specialty Diagnoses / Procedures Referred By Contac t Referred To Contact Diagnoses Invasive ductal carcinoma of breast, female, left (HCC) Procedures ONCOLOGY MEDICATION AUTHORIZATION Charlotte Alvarado MD [address] [place] [id number] Phone: tel: fax: [place] [address] Phone: tel: fax: Referral ID Status Reason Start Date Expiration Date Visits Requested Visits Authorized [id number] Authorization Not Needed 09/30/2023 02/15/2025 50 50 Encounter Details Date Type Department Care Team (Latest Contact Info) Description 12/10/2024 11:23 AM EDT - 12/10/2024 11:59 PM EDT Hospital Encounter [facility] [place] [id number] Charlotte Alvarado MD [address] [place] [id number] Invasive ductal carcinoma of breast, female, [...] Sign Reading Time Taken Comments Blood Pressure 124/69 12/10/2024 2:38 PM EDT Pulse - - Temperature - - Respiratory Rate - - Oxygen Saturation - - Inhaled Oxygen Concentration - - Weight - - Height - - Body Mass Index - - documented in this encounter Medications at Time of Discharge acyclovir (ZOVIRAX) 400 mg Oral TabletIndications :H/O cold sores Take 1 Tablet by mouth 2 times daily. 60 Tablet 4 06/29/2024 Calcium Citrate-Vitamin D3 200 mg-3.125 mcg (125 unit) Oral Tablet Take 125 mcg by mouth daily. fluticasone propionate (FLONASE) 50 mcg/actuation Nasl [place], Suspension 1 [place] by Nasal route daily. ibuprofen (ADVIL;MOTRIN) 600 [...] or Self Care documented in this encounter Miscellaneous Notes * Patient Instructions - Irene Cheema RN - 12/10/2024 11:30 AM EDT [facility] Discharge Instructions Thank you for entrusting the [facility] with your care. We hope you are pleased with your outpatient care and services. Because we are most concerned with your health, we suggest you carefully read the following discharge instructions: Your Discharge Instructions: MEDICATION INSTRUCTIONS: Treatment received today: Orders Placed This Encounter Comprehensive Metabolic Panel [NC]: An observation period of 30 minutes is recommended after infusion. 0.9 % NaCl infusion sodium chloride 0.9% syringe 10 mL heparin flush 100 unit/mL injection 500 Units aprepitant (CINVANTI) injection 130 mg acetaminophen (TYLENOL) tablet 650 mg palonosetron (ALOXI) injection 0.25 mg dexAMETHasone (DECADRON) tablet 12 mg famotidine (PEPCID) injection 20 mg prochlorperazine edisylate (COMPAZINE) injection 10 mg sacituzumab govitecan-hziy (TRODELVY) 350 mg in sodium chloride 0.9 % 250 mL chemo infusion Reviewed medications administered today and possible side effects Dizziness and sleepiness are possible side effects of pain medication. When taking pain medications, do not drink alcohol or drive. ACTIVITY INSTRUCTIONS: Rest today, increase activity as tolerated. DIET INSTRUCTIONS: Resume home diet FOLLOW-UP CARE: Call your doctor for a follow-up appointment: Notify physician for complications such as: Fever over 101*, Rash, Hives, difficulty breathing, unrelieved nausea or pain, redness or swelling in one limb greater than the other, constipation, diarrhea, bleeding Please contact your physician if you have problems related to your procedure or if symptoms persistor worsen. If physician is unavailable, go to the Emergency Room. If you develop any of the following : nausea, vomiting, fatigue, fever of 100.4 or higher, diarrhea, pain or any signs or symptoms of infection DON'T WAIT, PLEASE CALL US FIRST [phone]. [FOR URGENT ISSUES PLEASE DO NOT LEAVE A MESSAGE, FOLLOW PROMPTS TO THE DOCTOR TIMBER HEWER] For Gynecology / Oncology call : [phone] Our hours of operation are Tuesday - Tuesday 8:00 AM - 4:30 PM. [facility] [place] [address] [address] [phone] [address] Results for orders placed or performed during the hospital encounter of 12/10/24 COMPREHENSIVE METABOLIC PANEL Result Value Ref Range Sodium 141 136 - 145 mmol/L Potassium 3.6 3.5 - 5.0 mmol/L Chloride 107 98 - 107 mmol/L Total CO2 26 22 - 29 mmol/L Anion Gap 8 7 - 16 mmol/L Calcium 9.1 8.8 - 10.4 mg/dL Glucose Lvl 98 70 - 99 mg/dL BUN 12 8 - 23 mg/dL Creatinine 1.00 0.51 - 1.30 mg/dL Albumin 4.2 3.2 - 4.6 gm/dL Total Protein 6.5 6.4 - 8.3 gm/dL Bili Total 0.2 0.2 - 1.3 mg/dL ALT 14 <=41 U/L AST 17 <=40 U/L Alk Phos 137 (H) 36 - 123 U/L eGFR (CKD-EPIcr 2020) 62 >=60 mL/min/1.73 m2 Results for orders placed or performed during the hospital encounter of 12/10/24 CBC WITH DIFF Result Value Ref Range WBC 5.0 3.7 - 10.3 x10(3)/mcL RBC 3.41 (L) 3.90 - 5.20 x10(6)/mcL Hgb 10.9 (L) 11.2 - 15.7 g/dL Hct 33.5 (L) 34.0 - 45.0 % MCV 98.2 80.0 - 100.0 fL MCH 32.0 26.0 - 34.0 pg MCHC 32.5 30.7 - 35.5 g/dL RDW 15.7 (H) <=14.9 % Platelet 274 155 - 369 x10(3)/mcL MPV 10.1 8.8 - 12.5 fL Neut # Prelim 3.7 1.6 - 6.1 x10(3)/mcL Neut Percent 74.4 % Imm Gran% 0.0 % Lymph Percent 15.3 % Allen Percent 8.5 % Eos Percent 1.4 % Baso Percent 0.4 % Neut # 3.7 1.6 - 6.1 x10(3)/mcL IMMGRAN# 0.0 0.0 - 0.1 x10(3)/mcL Lymph # 0.8 (L) 1.2 - 3.9 x10(3)/mcL Allen # 0.4 0.3 - 0.9 x10(3)/mcL Eos# 0.1 0.0 - 0.5 x10(3)/mcL Baso # 0.0 0.0 - 0.1 x10(3)/mcL COMPREHENSIVE METABOLIC PANEL Result Value Ref Range Sodium 141 136 - 145 mmol/L Potassium 3.1 (L) 3.5 - 5.0 mmol/L Chloride 110 (H) 98 - 107 mmol/L Total CO2 23 22 - 29 mmol/L Anion Gap 8 7 - 16 mmol/L Calcium 8.0 (L) 8.8 - 10.4 mg/dL Glucose Lvl 92 70 - 99 mg/dL BUN 11 8 - 23 mg/dL Creatinine 0.89 0.51 - 1.30 mg/dL Albumin 3.6 3.2 - 4.6 gm/dL Total Protein 5.6 (L) 6.4 - 8.3 gm/dL Bili Total <0.2 (L) 0.2 - 1.3 mg/dL ALT 12 <=41 U/L AST 15 <=40 U/L Alk Phos 117 36 - 123 U/L eGFR (CKD-EPIcr 2020) 72 >=60 mL/min/1.73 m2 documented in this encounter Plan of Treatment Upcoming Encounters Date Type Department Care Team (Late st Contact Info) Description 02/01/2025 8:45 AM EDT Appointment [place] [address] 02/01/2025 9:15 AM EDT [facility]ment [facility] [place] [address] Charlotte Alvarado MD [address] [place] [address] 02/01/2025 9:30 AM EDT Appointment [facility] [place] [address] 02/08/2025 10:30 AM EDT [facility]ment [facility] [place] [address] 03/01/2025 10:00 AM EDT Appointment [place] [address] 03/01/2025 10:30 AM EDT [facility]ointment [facility] [place] [address] Charlotte Alvarado MD [address] [place] [address] 03/01/2025 11:00 AM EDT [facility] [place] [place] [id number] 03/08/2025 10:30 AM EDT [facility] [place] [place] [id number] 04/02/2025 11:20 AM EDT Office Visit [facility] [address] [facility] Building [address] [place] [phone] Melony Paula, SLEEPER CUTTER [address] [place] [address] documented as of this encounter Goals Goal Patient Goal Type Associated Problems Recent Progress Patient-Stated? Author Breast Health Breast Health On track(2020 11:50 AM EDT) Rebecca Geiger, RN Note: Patient acknowledges understanding of new diagnosis, plan of care, available resources and how to contact Nurse Navigator with any future questions or concerns. [facility] Tere Dillard, ANITA Note: Patient will maintain a healthy weight. [facility] Basia Perez, RN Note: Patient will be compliant with monthly Self Breast Exams and is aware of to who to contact for any unusual or concerning findings. documented as of this encounter Procedures Procedure Name Priority Date/Time Associated Diagnosis Comments COMPREHENSIVE METABOLIC PANEL Routine 12/10/2024 11:41 AM EDT Invasive ductal carcinoma of breast, female, left (HCC) documented in this encounter Results * (ABNORMAL) COMPREHENSIVE METABOLIC PANEL (12/10/2024 11:41 AM EDT) Sodium 141 136 - 145 mmol/L 12/10/2024 12:01 PM EDT [facility] Potassium 3.6 3.5 - 5.0 mmol/L 12/10/2024 12:01 PM EDT [facility] Chloride 107 98 - 107 mmol/L 12/10/2024 12:01 PM EDT [facility] Total CO2 26 22 - 29 mmol/L 12/10/2024 12:01 PM EDT [facility] Anion Gap 8 7 - 16 mmol/L 12/10/2024 12:01 PM EDT [facility] Calcium 9.1 8.8 - 10.4 mg/dL 12/10/2024 12:01 PM EDT [facility] Glucose Lvl 98 70 - 99 mg/dL 12/10/2024 12:01 PM EDT [facility] BUN 12 8 - 23 mg/dL 12/10/2024 12:01 PM EDT [facility] Creatinine 1.00 0.51 - 1.30 mg/dL 12/10/2024 12:01 PM EDT [facility] Albumin 4.2 3.2 - 4.6 gm/dL 12/10/2024 12:01 PM EDT [facility] Total Protein 6.5 6.4 - 8.3 gm/dL 12/10/2024 12:01 PM EDT [facility] Bili Total 0.2 0.2 - 1.3 mg/dL 12/10/2024 12:01 PM EDT [facility] ALT 14 <=41 U/L 12/10/2024 12:01 PM EDT [facility] AST 17 <=40 U/L 12/10/2024 12:01 PM EDT [facility] Alk Phos 137(H) 36 - 123 U/L 12/10/2024 12:01 PM EDT [facility] eGFR (CKD-EPIcr 2020) 62 >=60 mL/min/1.7 3 m2 12/10/2024 12:01 PM EDT [facility] Comment:Estimated GFR was ca lculated using the CKD-EPIcr (2020) equation refit without race. The equation is recommended by the National Kid[employer] - [place] [employer] Neph[employer] Task Force. Blood VENOUS BLOOD / Unknown Port / Unknown 12/10/2024 11:41 AM EDT 12/10/2024 11:43 AM EDT us Charlotte Alvarado MD CHEMISTRY ORDERABLES Final Result [facility] [id number] documented in this encounter Visit Diagnoses Diagnosis Invasive ductal carcinoma of breast, female, left (HCC)- Primary documented in this encounter Administered Medications Inactive Administered Medications - up to 1 most recent administrations Medication Order MAR Action Action Date Dose Rate Site 0.9 % NaCl infusion Intravenous, at 30 mL/hr, CONTINUOUS, Starting on Tue12/10/24 at 1145, Until Tue12/11/24 at 0411, For engineer station mainline during chemotherapy infusion., Dx: 1. Invasive ductal carcinoma of breast, female, left (HCC)Indications:Invasive ductal carcinoma of breast, female, left (HCC) IV Restarted 12/10/2024 12:45 PM EDT 30 mL/hr acetaminophen (TYLENOL) tablet 650 mg 650 mg, Oral, ONCE, 1 dose, On Tue12/10/24 at 1230, Maximum adult dose of acetaminophen is 4000 mg from all sources in 24 hours., Dx: 1. Invasive ductal carcinoma of breast, female, left (HCC)Indications:Invasive ductal carcinoma of breast, female, left (HCC) Given 12/10/2024 12:32 PM EDT 650 mg aprepitant (CINVANTI) injection 130 mg 130 mg, Intravenous, ONCE, 1 dose, On Tue12/10/24 at 1230, Administer undiluted solution IV push over 2 minutes, Dx: 1. Invasive ductal carcinoma of breast, female, left (HCC)Indications:Invasive ductal carcinoma of breast, female, left (HCC) Given 12/10/2024 12:38 PM EDT 130 mg dexAMETHasone (DECADRON) tablet 12 mg 12 mg, Oral, ONCE, 1 dose, On Tue12/10/24 at 1300, Dx: 1. Invasive ductal carcinoma of breast, female, left (HCC)Indications:Invasive ductal carcinoma of breast, female, left (HCC) Given 12/10/2024 12:32 PM EDT 12 mg famotidine (PEPCID) injection 20 mg 20 mg, Intravenous, ONCE, 1 dose, On Tue12/10/24 at 1300, Dx: 1. Invasive ductal carcinoma of breast, female, left (HCC)Indications:Invasive ductal carcinoma of breast, female, left (HCC) Given 12/10/2024 12:36 PM EDT 20 mg heparin flush 100 unit/mL injection 500 Units 500 Units, Intravenous, PRN, Starting on Tue12/10/24 at 1143, Until Tue12/11/24 at 0411, Line Care, For Venous Access Device care and maintenance., Dx: 1. Invasive ductal carcinoma of breast, female, left (HCC)Indications:Invasive ductal carcinoma of breast, female, left (HCC) Given During Downtime 12/10/2024 2:38 PM EDT 500 Units palonosetron (ALOXI) injection 0.25 mg 0.25 mg, Intravenous, ONCE, 1 dose, On Tue12/10/24 at 1300, Dx: 1. Invasive ductal carcinoma of breast, female, left (HCC)Indications:Invasive ductal carcinoma of breast, female, left (HCC) Given 12/10/2024 12:33 PM EDT 0.25 mg sacituzumab govitecan-hziy (TRODELVY) 350 mg in sodium chloride 0.9 % 250 mL chemo infusion 350 mg (rounded from 346.5 mg = 5 mg/kg 69.3 kg Treatment plan Recorded weight), Intravenous, ONCE, 1 dose, On Tue12/10/24 at 1300, Administer over 1 Hours, +++ Caution: CHEMOTHERAPEUTIC AGENT +++ Dose can be infused over 1 hour if patient tolerated previous doses. Upon completion of the infusion, flush the intravenous line with 20 mL of NS, Dx: 1. Invasive ductal carcinoma of breast, female, left (HCC)Indications:Invasive ductal carcinoma of breast, female, left (HCC) IV Started 12/10/2024 1:27 PM EDT 350 mg 250 mL/hr sodium chloride 0.9% syringe 10 mL 10 mL, Intravenous, PRN, Starting on Tue12/10/24 at 1143, Until Tue12/11/24 at 0411, Line Care, For Venous Access Device care and maintenance., Dx: 1. Invasive ductal carcinoma of breast, female, left (HCC)Indications:Invasive ductal carcinoma of breast, female, left (HCC) Given During Downtime 12/10/2024 2:38 PM EDT 10 mL documented in this encounter Orders Medications Ordered That Shaun ht Not Have Been Administered Count Last Ordered Date First Ordered Date prochlorperazine edisylate ( COMPAZINE) injection 10 mg 1 12/10/2024 documented in this encounter Care Teams Home Aide Relationship Specialty Start Date End Date Yony Walker MD [facility] [address] [facility] [phone] PCP - General Family Medicine 04/07/20 Charlotte Alvarado MD [address] [place] [id number] Medical Oncologist Internal Medicine-Hematology and Oncology 05/14/20 Irene Cheema, it software developer Therapy 12/10/24 12/10/24 documented as of this encounter
--- OUTSIDE RECORDS SUMMARY | 2024-12-17 10:30 | XMS_ITS | Encounter Summary ---
Author Organization [facility] [place] [address] Care Team Providers Care Qi Specialist Name Role Phone Yony Walker MD Primary Care Provider [phone] Charlotte Alvarado MD Unavailable [phone] Reason for Visit * Oncology Medication Prior Authorization (Routine) - Authorization Not Needed Specialty Diagnoses / Procedures Referred By Contac t Referred To Contact Diagnoses Invasive ductal carcinoma of breast, female, left (HCC) Procedures ONCOLOGY MEDICATION AUTHORIZATION Charlotte Alvarado MD [address] [place] [address] Phone: tel: fax: [facility] [place] [id number] Phone: tel: fax: Referral ID Status Reason Start Date Expiration Date Visits Requested Visits Authorized [id number] Authorization Not Needed 09/30/2023 02/15/2025 50 50 Encounter Details Date Type Department Care Team (Latest Contact Info) Description 12/17/2024 10:30 AM EDT - 12/17/2024 11:59 PM EDT Hospital Encounter [place] [address] Charlotte Alvarado MD [address] [place], [place] [id number] Invasive ductal carcinoma of breast, female, left [...] Sign Reading Time Taken Comments Blood Pressure 117/68 12/17/2024 1:31 PM EDT Pulse 74 12/17/2024 1:31 PM EDT Temperature 36.4 C (97.5 F) 12/17/2024 10:37 AM EDT Respiratory Rate 16 12/17/2024 1:31 PM EDT Oxygen Saturation 100% 12/17/2024 10:37 AM EDT Inhaled Oxygen Concentration - - Weight 67.1 kg (148 lb) 12/17/2024 10:37 AM EDT Height - - Body Mass Index 23.89 12/10/2024 10:54 AM EDT documented in this encounter Medications at Time of Discharge acyclovir (ZOVIRAX) 400 mg Oral TabletIndications :H/O cold sores Take 1 Tablet by mouth 2 times daily. 60 Tablet 4 06/29/2024 Calcium Citrate-Vitamin D3 200 mg-3.125 mcg (125 unit) Oral Tablet Take 125 mcg by mouth daily. fluticasone propionate (FLONASE) 50 mcg/actuation Nasl [place], Suspension 1 [place] by Nasal route daily. ibuprofen (ADVIL;MOTRIN) 600 [...] encounter Miscellaneous Notes * Patient Instructions - Chano Berry RN - 12/17/2024 10:30 AM EDT [facility] Discharge Instructions Thank you for entrusting the [facility] with your care. We hope you are pleased with your outpatient care and services. Because we are most concerned with your health, we suggest you carefully read the following discharge instructions: Your Discharge Instructions: MEDICATION INSTRUCTIONS: Treatment received today: Orders Placed This Encounter CBC with Auto Diff Comprehensive Metabolic Panel 0.9 % NaCl infusion aprepitant (CINVANTI) injection 130 mg acetaminophen (TYLENOL) tablet 650 mg palonosetron (ALOXI) injection 0.25 mg dexAMETHasone (DECADRON) tablet 12 mg famotidine (PEPCID) injection 20 mg sodium chloride 0.9 % sterile syringe 10 mL sodium chloride 0.9% syringe 10 mL sacituzumab govitecan-hziy (TRODELVY) 350 mg in sodium chloride 0.9 % 250 mL chemo infusion pegfilgrastim (NEULASTA) on-body injector 6 mg heparin flush 100 unit/mL injection 500 Units Reviewed medications administered today and possible side [...] infection DON'T WAIT, PLEASE CALL US FIRST [phone]. [FOR URGENT ISSUES PLEASE DO NOT LEAVE A MESSAGE, FOLLOW PROMPTS TO THE DOCTOR TOURIST AGENT] For Gynecology / Oncology call : [phone] Our hours of operation are Tuesday - Tuesday 8:00 AM - 4:30 PM. [facility] [id number] [place] [address] Results for orders placed or performed during the hospital encounter of 12/17/24 CBC WITH DIFF Result Value Ref Range WBC 6.0 3.7 - 10.3 x10(3)/mcL RBC 3.74 (L) 3.90 - 5.20 x10(6)/mcL Hgb 11.7 11.2 - 15.7 g/dL Hct 36.5 34.0 - 45.0 % MCV 97.6 80.0 - 100.0 fL MCH 31.3 26.0 - 34.0 pg MCHC 32.1 30.7 - 35.5 g/dL RDW 14.7 <=14.9 % Platelet 294 155 - 369 x10(3)/mcL MPV 10.3 8.8 - 12.5 fL Neut # Prelim 3.9 1.6 - 6.1 x10(3)/mcL Neut Percent 65.7 % Imm Gran% 0.5 % Lymph Percent 22.2 % Rogers Percent 8.4 % Eos Percent 2.5 % Baso Percent 0.7 % Neut # 3.9 1.6 - 6.1 x10(3)/mcL IMMGRAN# 0.0 0.0 - 0.1 x10(3)/mcL Lymph # 1.3 1.2 - 3.9 x10(3)/mcL Rogers # 0.5 0.3 - 0.9 x10(3)/mcL Eos# 0.2 0.0 - 0.5 x10(3)/mcL Baso # 0.0 0.0 - 0.1 x10(3)/mcL COMPREHENSIVE METABOLIC PANEL Result Value Ref Range Sodium 138 136 - 145 mmol/L Potassium 3.9 3.5 - 5.0 mmol/L Chloride 103 98 - 107 mmol/L Total CO2 25 22 - 29 mmol/L Anion Gap 10 7 - 16 mmol/L Calcium 8.7 (L) 8.8 - 10.4 mg/dL Glucose Lvl 101 (H) 70 - 99 mg/dL BUN 17 8 - 23 mg/dL Creatinine 1.10 0.51 - 1.30 mg/dL Albumin 3.8 3.2 - 4.6 gm/dL Total Protein 6.4 6.4 - 8.3 gm/dL Bili Total 0.2 0.2 - 1.3 mg/dL ALT 13 <=41 U/L AST 15 <=40 U/L Alk Phos 122 36 - 123 U/L eGFR (CKD-EPIcr 2020) 55 (L) >=60 mL/min/1.73 m2 documented in this encounter Plan of Treatment Upcoming Encounters Date Type Department Care Team (Late st Contact Info) Description 02/01/2025 8:45 AM EDT Appointment [facility] [place], [place] [id number] 02/01/2025 9:15 AM EDT [facility]ment [facility] [place], [place] [id number] Charlotte Alvarado MD [address] [place] [address] [id number] 02/01/2025 9:30 AM EDT Appointment [facility] [place], [place] [id number] 02/08/2025 10:30 AM EDT Appointment [facility] [place], [place] [id number] 03/01/2025 10:00 AM EDT Appointment [facility] [place], [place] [id number] 03/01/2025 10:30 AM EDT [facility]ointment [facility] [place], [place] [id number] Charlotte Alvarado MD [address] [place] [address] [id number] 03/01/2025 11:00 AM EDT [facility]ment [facility] [place], [place] [id number] 03/08/2025 10:30 AM EDT Appointment [facility] [place], [place] [id number] 04/02/2025 11:20 AM EDT Office Visit [facility] [address] [address] Melony Paula, MATHEMATICAL ENGINEERING TECHNICIAN [address] [place] [address] documented as of this encounter Goals Goal Patient Goal Type Associated Problems Recent Progress Patient-Stated? Author Breast Health Breast Health On track(2020 11:50 AM EDT) No Rebecca Deluca, RN Note: Patient acknowledges understanding of new [...] Associated Diagnosis Comments CBC WITH DIFF STAT 12/17/2024 10:46 AM EDT Invasive ductal carcinoma of breast, female, left (HCC) COMPREHENSIVE METABOLIC PANEL STAT 12/17/2024 10:46 AM EDT Invasive ductal carcinoma of breast, female, left (HCC) documented in this encounter Results * (ABNORMAL) COMPREHENSIVE METABOLIC PANEL (12/17/2024 10:46 AM EDT) Sodium 138 136 - 145 mmol/L 12/17/2024 11:07 AM EDT [facility] Potassium 3.9 3.5 - 5.0 mmol/L 12/17/2024 11:07 AM EDT [facility] Chloride 103 98 - 107 mmol/L 12/17/2024 11:07 AM EDT [facility] Total CO2 25 22 - 29 mmol/L 12/17/2024 11:07 AM EDT [facility] Anion Gap 10 7 - 16 mmol/L 12/17/2024 11:07 AM EDT [facility] Calcium 8.7(L) 8.8 - 10.4 mg/dL 12/17/2024 11:07 AM EDT [facility] Glucose Lvl 101(H) 70 - 99 mg/dL 12/17/2024 11:07 AM EDT [facility] BUN 17 8 - 23 mg/dL 12/17[facility]24 [facility] Creatinine 1.10 0.51 - 1.30 mg/dL 12/17/2024 11:07 AM EDT [facility] Albumin 3.8 3.2 - 4.6 gm/dL 12/17/2024 11:07 AM EDT [facility] Total Protein 6.4 6.4 - 8.3 gm/dL 12/17/2024 11:07 AM EDT [facility] Bili Total 0.2 0.2 - 1.3 mg/dL 12/17/2024 11:07 AM EDT [facility] ALT 13 <=41 U/L 12/17/2024 11:07 AM EDT [facility] AST 15 <=40 U/L 12/17/2024 11:07 AM EDT [facility] Alk Phos 122 36 - 123 U/L 12/17/2024 11:07 AM EDT [facility] eGFR (CKD-EPIcr 2020) 55(L) >=60 mL/min/1.7 3 m2 12/17/2024 11:07 AM EDT [facility] Comment:Estimated GFR was ca lculated using the CKD-EPIcr (2020) equation refit without race. The equation is recommended by the National Kid[employer] - [place] [employer] of Nephrology Task Force. Blood VENOUS BLOOD / Unknown Port / Unknown 12/17/2024 10:46 AM EDT 12/17/2024 10:49 AM EDT us Charlotte Alvarado MD CHEMISTRY ORDERABLES Final Result [facility] [address] [place] [address] * (ABNORMAL) CBC WITH DIFF (12/17/2024 10:46 AM EDT) WBC 6.0 3.7 - 10.3 x10(3)/mcL 12/17/2024 11:02 AM EDT [facility] RBC 3.74(L) 3.90 - 5.20 x10(6)/mcL 12/17/2024 11:02 AM EDT [facility] Hgb 11.7 11.2 - 15.7 g/dL 12/17/2024 11:02 AM EDT [facility] Hct 36.5 34.0 - 45.0 % 12/17/2024 11:02 AM EDT [facility] MCV 97.6 80.0 - 100.0 fL 12/17/2024 11:02 AM EDT [facility] MCH 31.3 26.0 - 34.0 pg 12/17/2024 11:02 AM EDT [facility] MCHC 32.1 30.7 - 35.5 g/dL 12/17/2024 11:02 AM EDT [facility] RDW 14.7 <=14.9 % 12/17/2024 11:02 AM EDT [facility] Platelet 294 155 - 369 x10(3)/[facility] 12/17/2024 11:02 AM EDT [facility] MPV 10.3 8.8 - 12.5 fL 12/17/2024 11:02 AM EDT [facility] Neut # Prelim 3.9 1.6 - 6.1 x10(3)/mcL 12/17/2024 11:02 AM EDT [facility] Comment:Preliminary automate d absolute neutrophil count. Value may change if manual differential is indicated. Neut Percent 65.7 % 12/17/2024 11:02 AM EDT [facility] Comment:Neutrophils equals s egs plus bands Imm Gran% 0.5 % 12/17/2024 11:02 AM EDT [facility] Comment:Automated count of m etamyelocytes, myelocytes and promyelocytes. Lymph Percent 22.2 % 12/17/2024 11:02 AM EDT [facility] Rogers Percent 8.4 % 12/17/2024 11:02 AM EDT [facility] Eos Percent 2.5 % 12/17/2024 11:02 AM EDT [facility] Baso Percent 0.7 % 12/17/2024 11:02 AM EDT [facility] Neut # 3.9 1.6 - 6.1 x10(3)/[facility] 12/17/2024 11:02 AM EDT [facility] Comment:Neutrophils equals s egs plus bands IMMGRAN# 0.0 0.0 - 0.1 x10(3)/[facility] 12/17/2024 11:02 AM EDT [facility] Comment:Automated count of m etamyelocytes, myelocytes and promyelocytes. An absolute IG <0.1 is reported as 0.0. Lymph # 1.3 1.2 - 3.9 x10(3)/[facility] 12/17/2024 11:02 AM EDT [facility] Rogers # 0.5 0.3 - 0.9 x10(3)/[facility] 12/17/2024 11:02 AM EDT [facility] Eos# 0.2 0.0 - 0.5 x10(3)/[facility] 12/17/2024 11:02 AM EDT [facility] Baso # 0.0 0.0 - 0.1 x10(3)/mcL 12/17/2024 11:02 AM EDT [facility] Blood VENOUS BLOOD / Unknown Port / Unknown 12/17/2024 10:46 AM EDT 12/17/2024 10:49 AM EDT us Charlotte Alvarado MD HEMATOLOGY ORDERABLE S Final Result [facility] [address] [facility] , [place] [address] documented in this encounter Visit Diagnoses Diagnosis Invasive ductal carcinoma of breast, female, left (HCC)- Primary documented in this encounter Administered Medications Inactive Administered Medications - up to 1 most recent administrations Medication Order MAR Action Action Date Dose Rate Site 0.9 % NaCl infusion Intravenous, at 30 mL/hr, CONTINUOUS, Starting on Tue12/17/24 at 1115, Until Tue12/18/24 at 0417, For airline reservation agent during chemotherapy infusion., Dx: 1. Invasive ductal carcinoma of breast, female, left (HCC)Indications:Invasive ductal carcinoma of breast, female, left (HCC) New Bag 12/17/2024 12:20 PM EDT 30 mL/hr acetaminophen (TYLENOL) tablet 650 mg 650 mg, Oral, ONCE, 1 dose, On Tue12/17/24 at 1115, Maximum adult dose of acetaminophen is 4000 mg from all sources in 24 hours., Dx: 1. Invasive ductal carcinoma of breast, female, left (HCC)Indications:Invasive ductal carcinoma of breast, female, left (HCC) Given 12/17/2024 11:46 AM EDT 650 mg aprepitant (CINVANTI) injection 130 mg 130 mg, Intravenous, ONCE, 1 dose, On Tue12/17/24 at 1115, Administer undiluted solution IV push over 2 minutes, Dx: 1. Invasive ductal carcinoma of breast, female, left (HCC)Indications:Invasive ductal carcinoma of breast, female, left (HCC) Given 12/17/2024 11:51 AM EDT 130 mg dexAMETHasone (DECADRON) tablet 12 mg 12 mg, Oral, ONCE, 1 dose, On Tue12/17/24 at 1145, Dx: 1. Invasive ductal carcinoma of breast, female, left (HCC)Indications:Invasive ductal carcinoma of breast, female, left (HCC) Given 12/17/2024 11:46 AM EDT 12 mg famotidine (PEPCID) injection 20 mg 20 mg, Intravenous, ONCE, 1 dose, On Tue12/17/24 at 1145, Dx: 1. Invasive ductal carcinoma of breast, female, left (HCC)Indications:Invasive ductal carcinoma of breast, female, left (HCC) Given 12/17/2024 11:49 AM EDT 20 mg heparin flush 100 unit/mL injection 500 Units 500 Units, Intravenous, PRN, Starting on Tue12/17/24 at 1111, Until Tue12/18/24 at 0417, Line Care, For Venous Access Device care and maintenance., Dx: 1. Invasive ductal carcinoma of breast, female, left (HCC)Indications:Invasive ductal carcinoma of breast, female, left (HCC) Given 12/17/2024 2:03 PM EDT 500 Units palonosetron (ALOXI) injection 0.25 mg 0.25 mg, Intravenous, ONCE, 1 dose, On Tue12/17/24 at 1145, Dx: 1. Invasive ductal carcinoma of breast, female, left (HCC)Indications:Invasive ductal carcinoma of breast, female, left (HCC) Given 12/17/2024 11:47 AM EDT 0.25 mg pegfilgrastim (NEULASTA) on-body injector 6 mg 6 mg, Subcutaneous, ONCE, 1 dose, On Tue12/17/24 at 1300, The OnBody injector is NOT approved to use with chemotherapy regimens administered more frequently than every two weeks OR in combination with radiation. Allow the syringe and on-body injector to come naturally to room temperature for 30 minutes prior to activating. Do not warm the kit components using a heat source., Please Select Indication: Dose-Dense regimen, Please Select Reason for On-body Use: Insurance approved, Dx: 1. Invasive ductal carcinoma of breast, female, left (HCC)Indications:Invasive ductal carcinoma of breast, female, left (HCC) Given 12/17/2024 1:33 PM EDT 6 mg Right Arm sacituzumab govitecan-hziy (TRODELVY) 350 mg in sodium chloride 0.9 % 250 mL chemo infusion 350 mg (rounded from 346.5 mg = 5 mg/kg 69.3 kg Treatment plan Recorded weight), Intravenous, ONCE, 1 dose, On Tue12/17/24 at 1145, Administer over 1 Hours, +++ Caution: CHEMOTHERAPEUTIC AGENT +++ Dose can be infused over 1 hour if patient tolerated previous doses. Upon completion of the infusion, flush the intravenous line with 20 mL of NS, Dx: 1. Invasive ductal carcinoma of breast, female, left (HCC)Indications:Invasive ductal carcinoma of breast, female, left (HCC) IV Started 12/17/2024 12:22 PM EDT 350 mg 250 mL/hr sodium chloride 0.9 % sterile syringe 10 mL 10 mL, Intravenous, ONCE, 1 dose, On Tue12/17/24 at 1115, For initial access of Venous Access Device., Dx: 1. Invasive ductal carcinoma of breast, female, left (HCC)Indications:Invasive ductal carcinoma of breast, female, left (HCC) Given 12/17/2024 10:37 AM EDT 10 mL sodium chloride 0.9% syringe 10 mL 10 mL, Intravenous, PRN, Starting on Tue12/17/24 at 1111, Until Tue12/18/24 at 0417, Line Care, For Venous Access Device care and maintenance., Dx: 1. Invasive ductal carcinoma of breast, female, left (HCC)Indications:Invasive ductal carcinoma of breast, female, left (HCC) Given 12/17/2024 2:03 PM EDT 10 mL documented in this encounter Care Teams Qi Specialist Relationship Specialty Start Date End Date Yony Walker MD [facility] [address] [place] [address] PCP - General Family Medicine 04/07/20 Charlotte Alvarado MD [address] [place] [address] [place] [id number] Medical Oncologist Internal Medicine-Hematology and Oncology 05/14/20 documented as of this encounter
--- OUTSIDE RECORDS SUMMARY | 2024-12-31 14:45 | XMS_ITS | Encounter Summary ---
Author Organization [place] [address] Care Team Providers Care Fisher Seal Name Role Phone Yony Walker MD Primary Care Provider [phone] [phone] Charlotte Alvarado MD Unavailable [phone]- [phone] Reason for Referral * Surgical (Routine) - Pending Review Specialty Diagnoses / Procedures Referred By Contac t Referred To Contact Gastroenterology Diagnoses History of breast cancer Mediastinal adenopathy Procedures ENDOSCOPIC BRONCHIAL ULTRASOUND (EBUS) [facility] EBUS GUIDED SAMPL 1/2 NODE STATION/STRUX Maryanne Lawler MD [address] [place] [address] Phone: tel: fax: Referral ID Status Reason Start Date Expiration Date V isits Requested Visits Authorized [id number] Pending Review 12/31/2024 12/31/2025 1 1 Reason for Visit * Reason Comments New Patient Encounter Details Date Type Department Care Team (Late st Contact Info) Description 12/31/2024 2:45 PM EDT Office Visit SEP Pulmonology [facility] [address] [facility] [address] [place] [address] Maryanne Lawler MD [address] [place] [address] History of breast cancer, left breast (Primary Dx); Mediastinal adenopathy Social History Tobacco Use Types Packs/Day Years [...] Sign Reading Time Taken Comments Blood Pressure 110/84 12/31/2024 2:53 PM EDT Pulse 92 12/31/2024 2:53 PM EDT Temperature - - Respiratory Rate - - Oxygen Saturation 99% 12/31/2024 2:53 PM EDT rar Inhaled Oxygen Concentration - - Weight 68.9 kg (152 lb) 12/31/2024 2:53 PM EDT Height 167.6 cm (5' 6 ) 12/31/2024 2:53 PM EDT Body Mass Index 24.53 12/31/2024 2:53 PM EDT documented in this encounter Progress Notes * Maryanne Lawler MD - 12/31/2024 2:45 PM EDT Images from the original note were not included. Yony Walker MD HPI Michelle Nolan is a 64 y.o. female who presents for med and hilar adenopathy. H/o triple negative breast ca with previous recurrence to skin with serial imaging showing FG avidity in station 7 and 10 nodes. Referred here. SOB- asymptomatic Cough- asymptomatic Wheezing is asymptomatic BENOIT with 4 or more blocks Weight loss- has not lost weight Tobacco abuse- Social History Tobacco Use Smoking Status Never Smokeless Tobacco Never PAST MEDICAL HISTORY Past Medical History: Diagnosis Date Anemia mild secondary to chemo Hypertension Invasive ductal carcinoma of breast, female, left (HCC) Last chemo 09-05-20, CBC done 09-12-20 Motion sickness Syncope and collapse after delivery of all kids, have fainting episodes Thyroid disease FAMILY HISTORY Family History Problem Relation Age of Onset High Blood Pressure Mother High Cholesterol Mother Arthritis Mother High Blood Pressure Father High Cholesterol Father Transient Ischemic Attack Father Breast Cancer Sister Breast Cancer Maternal Aunt Colon Cancer Maternal Grandmother No Known Problems Maternal Grandfather No Known Problems Paternal Grandmother No Known Problems Paternal Grandfather No Known Problems Other Hearing Loss Neg Hx Allergies Neg Hx Migraines Neg Hx Heart Disease Neg Hx Thyroid Disease Neg Hx Bleeding Prob Neg Hx Cancer Neg Hx SOCIAL HISTORY Social History Socioeconomic History Marital status: Spouse name: Not on file Number of children: Not on file Years of education: Not on file Highest education level: Not on file Occupational History Not on file Tobacco Use Smoking status: Never Smokeless tobacco: Never Vaping Use Vaping status: Never Used Substance and Sexual Activity Alcohol use: No Drug use: No Sexual activity: Yes Partners: Male control/protection: Post-menopausal Other Topics Concern Not on file Social History Narrative Not on file Social Drivers of Health Financial Resource Strain: Not on file Food Insecurity: Not on file Transportation Needs: Not on file Physical Activity: Not on file Stress: Not on file Social Connections: Not on file Intimate Partner Violence: Not on file Housing Stability: Not on file ALLERGIES No Known Allergies MEDICATIONS Current Outpatient Medications Medication Sig Dispense Refill acyclovir (ZOVIRAX) 400 mg Oral Tablet Take 1 Tablet by mouth 2 times daily. 60 Tablet 4 Calcium Citrate-Vitamin D3 200 mg-3.125 mcg (125 unit) Oral Tablet Take 125 mcg by mouth daily. cyclobenzaprine (FLEXERIL) 10 mg Oral Tablet dexAMETHasone (DECADRON) 4 mg Oral Tablet Take 2 tablets by mouth every morning x 3 doses, on days 2, 3, 4, 9, 10, and 11 of each cycle. 30 Tablet 1 ferrous sulfate 325 mg (65 mg iron) Oral Tablet Take 325 mg by mouth daily. fluticasone propionate (FLONASE) 50 mcg/actuation Nasl [place], Suspension 1 [place] by Nasal route daily. ibuprofen (ADVIL;MOTRIN) 600 mg Oral Tablet Take 600 mg by mouth 3 times daily. LEVOthyroxine (SYNTHROID) 75 mcg Oral Tablet Take 75 mcg by mouth daily. lisinopriL-hydrochlorothiazide (PRINZIDE;ZESTORETIC) 10-12.5 mg Oral Tablet Take 0.5 Tablets by mouth daily. loperamide (IMODIUM) 2 mg Oral Capsule Take 4 mg by mouth for the first dose and then 2 mg by mouthas needed with every loose bowel movement up to a total of 16 mg/day(8 caps/day). 100 Capsule 2 multivitamin (THERAGRAN) Oral Tablet Take 1 Tablet by mouth daily. pantoprazole (PROTONIX) 40 mg Oral Tablet, Delayed Release (E.C.) Take 1 Tablet by mouth daily. 90 Tablet 4 prochlorperazine (COMPAZINE) 10 mg Oral Tablet Take 1 tablet by mouth every 6 hours as needed for nausea and vomiting. 30 Tablet 5 rosuvastatin (CRESTOR) 10 mg Oral Tablet Take 10 mg by mouth daily. senna-docusate (SENOKOT-S) 8.6-50 mg Oral Tablet Take 2 Tablets by mouth 2 times daily. 90 Tablet 1 No current facility-administered medications for this visit. Vital Signs: There were no vitals taken for this visit. ROS Review of Systems Constitutional: Negative for chills, fever and weight loss. HENT: See HPI for positives Respiratory: See HPI Cardiovascular: Negative for chest pain, palpitations and orthopnea. Gastrointestinal: Negative for heartburn, nausea and vomiting. Musculoskeletal: No diffuse myalgias or arthralgias Skin: Negative for rash. Neurological: Negative for dizziness and sensory change. PHYSICAL EXAM Physical Exam Constitutional: Appearance: She is well-developed. HENT: Head: Normocephalic and atraumatic. Eyes: Conjunctiva/sclera: Conjunctivae normal. Cardiovascular: Rate and Rhythm: Normal rate and regular rhythm. Heart sounds: Normal heart sounds. Pulmonary: Effort: Pulmonary effort is normal. No respiratory distress. Breath sounds: Normal breath sounds. No wheezing. Abdominal: General: Bowel sounds are normal. There is no distension. Palpations: Abdomen is soft. Skin: General: Skin is warm and dry. Neurological: Mental Status: She is alert and oriented to person, place, and time. RESULTS Lab Results Component Value Date WBC 6.0 12/17/2024 HGB 11.7 12/17/2024 HCT 36.5 12/17/2024 MCV 97.6 12/17/2024 PLT 294 12/17/2024 Lab Results Component Value Date CREATININE 1.10 12/17/2024 BUN 17 12/17/2024 NA 138 12/17/2024 K 3.9 12/17/2024 CL 103 12/17/2024 CO2 25 12/17/2024 No valid procedures specified. Pulmonary Functions Testing Results: No results found for: FEV1 , FVC , FLS9QIG , TLC , DLCO VISIT ORDERS No orders of the defined types were placed in this encounter. Michelle Nolan had no medications administered during this visit. 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 PLAN On trodelvy- antibody drug conjugate. Serial PET CT with increasing FDF avidity in station 7, R10 andR4 even on uncorrected PET images. Plan for EBUS. Procedure alternatives and risks explained in detail. Including but not limited to bleeding, introduction of infection, worsening respiratory function, lung puncture and collapse, in rare circumstances. Incidence of 1 to 3% of life-threatening complication with bronchoscopy in the literature d iscussed.Patient agreeable to proceeding. Maryanne Lawler MD. [facility]. [facility]. DAABIP Pulmonary Disease - [place] [employer] Medicine Critical Care Medicine- [place] [employer] Medicine Interventional pulmonology- [place] [employer] of Bronchology and Interventional Pumonology Neurocritical Care - [place] Board of Psychiatry and Neurology Port A Cath Chest Right (Active) Future Appointments Date Time Provider Department Center 12/31/2024 2:45 PM Maryanne Lawler MD [facility] 10[facility]00 AM [facility] PORT ACCESS NURSE LAB [facility] [place] 01/04/2025 10:30 AM Aster Parks APRN [facility] [place] 01/04/2025 11:00 AM [facility] [place] 01/11/2025 11:00 AM [facility] INFUSION POD C CHAIRS [facility] [place] Note was completed using voice recognition technology. Despite best efforts to proof read, it may still contain unintended errors. Please call with questions. 1. The patient indicates understanding of these issues and agrees with the plan. 2. I reviewed the patient's medical information and medical history. 3. I have reviewed the past medical, family, and social history sections including the medications and allergies listed in the above medical record. documented in this encounter Plan of Treatment Upcoming Encounters Date Type Department Care Team (Late st Contact Info) Description 02/01/2025 8:45 AM EDT Appointment [place] [address] 02/01/2025 9:15 AM EDT [facility]ointment [facility] [place] [address] Charlotte Alvarado MD [address] [place] [address] 02/01/2025 9:30 AM EDT [facility]ment [facility] [place] [id number] 02/08/2025 10:30 AM EDT Appointment [place] [place] [address] 03/01/2025 10:00 AM EDT Appointment [place] [address] 03/01/2025 10:30 AM EDT [facility]ointment [facility] [place] [address] Charlotte Alvarado MD [address] [place] [address] 03/01/2025 11:00 AM EDT Appointment [place] [address] 03/08/2025 10:30 AM EDT Appointment [facility] [place], [place] [id number] 04/02/2025 11:20 AM EDT Office Visit SEP Pulmonology [facility] [address] [id number] Melony Paula, PHYSICIAN EXTENDER [address] [place] [address] documented as of this encounter Goals Goal Patient Goal Type Associated Problems Recent Progress Patient-Stated? Author [facility] On track(2020 11:50 AM EDT) Rebecca Geiger RN Note: Patient acknowledges understanding of new diagnosis, plan of care, available resources and how to contact Nurse Navigator with any future questions or concerns. [facility] No Tere Saucedo, ANITA Note: Patient will maintain a healthy weight. [facility] No Basia Martínez, ANITA Note: Patient will be compliant with monthly Self Breast Exams and is aware of to who to contact for any unusual or concerning findings. documented as of this encounter Results * ENDOSCOPIC BRONCHIAL ULTRASOUND (EBUS) (01/15/2025 1:44 PM EDT) Anatomical Region Laterality Modality Endoscopy Narrative 01/15/2025 1:40 PM EDT Table formatting from the original result was not included. Findings Subcarinal station (7) evaluated. Passes taken with a 22 gauge needle. Right lower paratracheal station (4R) evaluated. Passes taken with a 22 gauge needle. Right hilar station (10R) evaluated. Passes taken with a 22 gauge needle. Right interlobar station (11R) evaluated. Passes taken with a 22 gauge needle. Nodes observed under convex ultrasound guidance. Onsite biological chemist was present. Recommendation Await pathology results Pre-Procedure Diagnosis / Indication Mediastinal adenopathy, History of breast cancer Post-Procedure Diagnosis None Staff Staff Role DAJA Landrum CRNA, MD Anesthesiologist Maryanne Lawler MD Performing Provider Laith Lopez RN Endoscopy Nurse Adal Galvin RN Pipeline Superintendent Medications See Anesthesia Record. No administrations occurring from 1248 to 1339 on 01/15/25 Preprocedure A history and physical has been performed, and patient medication allergies have been reviewed. The patient's tolerance of previous anesthesia has been reviewed. The risks and benefits of the procedure and the sedation options and risks were discussed with the patient. All questions were answered and informed consent obtained. ASA 3 - Patient with severe systemic disease Details of the Procedure The patient underwent general anesthesia, which was administered by an anesthesia professional. The patient's blood pressure, heart rate, level of consciousness, oxygen saturation, respirations, ECG and ETCO2 were monitored throughout the procedure. The patient experienced no blood loss. The scope was introduced through the endotracheal tube. The procedure was not difficult. The patient tolerated the procedure well. There were no apparent adverse events. Patient provided education and educated on specific discharge instructions. Patient educated on medications given during the procedure and new medications for discharge. Patient verbalizes understanding of discharge education. Patient stable and awaiting transport for discharge. Specimens ID Type Source Tests Collected by Time 1 : R4 lymph node fine needle aspiration- ebus Aspirate Lymph Node NON-BALLISTICS TESTER CYTOLOGY REQUEST Maryanne Lawler MD 01/15/2025 1305 2 : station 7 fine needle aspiration- ebus Aspirate Lymph Node NON-BALLISTICS TESTER CYTOLOGY REQUEST Maryanne Lawler MD 01/15/2025 1312 3 : R10 lymph node fine needle aspiration- ebus Aspirate Lymph Node NON-BALLISTICS TESTER CYTOLOGY REQUEST Maryanne Lawler MD 01/15/2025 1322 4 : R11 lymph node fine needle aspiration- ebus Aspirate Lymph Node NON-BALLISTICS TESTER CYTOLOGY REQUEST Maryanne Lawler MD 01/15/2025 1329 5 : bronchus wash Wash Bronchus LOWER RESPIRATORY CULTURE (STAIN INCLUDED), FUNGUS CULTURE (NO STAIN), ACID FAST BACILLI CULTURE AND SMEAR (STAIN INCLUDED), NON-BALLISTICS TESTER CYTOLOGY REQUEST Maryanne Lawler MD 01/15/2025 1335 Anesthesia Event Time In Patient In - Proc. Room 12:48 PM Maryanne Lawler MD ENDOSCOPY PROCEDURE ORDERABLES Final Result documented in this encounter Visit Diagnoses Diagnosis History of breast cancer, left breast- Primary Personal history of malignant neoplasm of breast Mediastinal adenopathy Enlargement of lymph nodes Essential hypertension- Primary Unspecified essential hypertension Preop testing Preoperative examination, unspecified History of breast cancer, left breast Personal history of malignant neoplasm of breast Mediastinal adenopathy Enlargement of lymph nodes documented in this encounter Care Teams Fisher Seal Relationship Specialty Start Date End Date Yony Walker MD [facility] [address] [place] [address] PCP - General Family Medicine 04/07/20 Charlotte Alvarado MD [address] [place], [place] [address] Medical Oncologist Internal Medicine-Hematology and Oncology 05/14/20 documented as of this encounter
--- OUTSIDE RECORDS SUMMARY | 2025-01-04 09:54 | XMS_ITS | Encounter Summary ---
Author Organization [place] [address] Care Team Providers Care Ambulance Paramedic Name Role Phone Yony Walker MD Primary Care Provider [phone] -[phone] Charlotte Alvarado MD Unavailable +1- [phone] Sirisha Butterfield RN Unavailable Unavailable Encounter Details Date Type Department Care Team (Latest Contact Info) Description 01/04/2025 9:54 AM EDT - 01/04/2025 10:03 AM EDT Hospital Encounter [place] [address] Charlotte Alvarado MD [address] [place] [phone] Invasive ductal carcinoma of breast, female, left [...] daily. fluticasone propionate (FLONASE) 50 mcg/actuation Nasl [place], Suspension 1 [place] by Nasal route daily. ibuprofen (ADVIL;MOTRIN) 600 [...] AM EDT Appointment [place] [address] 02/01/2025 9:15 AM EDT Appointment [facility] [place] [address] Charlotte Alvarado MD [address] [place] [phone] 02/01/2025 9:30 AM EDT Appointment [place] [address] 02/08/2025 10:30 AM EDT Appointment [place] [address] 03/01/2025 10:00 AM EDT Appointment [place] [address] 03/01/2025 10:30 AM EDT Appointment [facility] [place] [address] Charlotte Alvarado MD [address] [place] [address] 03/01/2025 11:00 AM EDT [facility] [place] [address] 03/08/2025 10:30 AM EDT [facility]ment [facility] [place] [address] 04/02/2025 11:20 AM EDT Office Visit SEP Pulmonology [facility] [address] [address] Melony Paula, WASHER CUTTER [address] [place] [address] documented as of this encounter Goals Goal [...] Associated Diagnosis Comments CBC WITH DIFF STAT 01/04/2025 10:02 AM EDT Invasive ductal carcinoma of breast, female, left (HCC) COMPREHENSIVE METABOLIC PANEL STAT 01/04/2025 10:02 AM EDT Invasive ductal carcinoma of breast, female, left (HCC) documented in this encounter Results * (ABNORMAL) COMPREHENSIVE METABOLIC PANEL (01/04/2025 10:02 AM EDT) Sodium 141 136 - 145 mmol/L 01/04/2025 10:24 AM EDT [facility] Potassium 4.0 3.5 - 5.0 mmol/L 01/04/2025 10:24 AM EDT [facility] Chloride 104 98 - 107 mmol/L 01/04/2025 10:24 AM EDT [facility] Total CO2 25 22 - 29 mmol/L 01/04/2025 10:24 AM EDT [facility] Anion Gap 12 7 - 16 mmol/L 01/04/2025 10:24 AM EDT [facility] Calcium 9.3 8.8 - 10.4 mg/dL 01/04/2025 10:24 AM EDT [facility] Glucose Lvl 103(H) 70 - 99 mg/dL 01/04/2025 10:24 AM EDT [facility] BUN 21 8 - 23 mg/dL 01/04/2025 10:24 AM EDT [facility] Creatinine 1.08 0.51 - 1.30 mg/dL 01/04/2025 10:24 AM EDT [facility] Albumin 4.0 3.2 - 4.6 gm/dL 01/04/2025 10:24 AM EDT [facility] Total Protein 6.7 6.4 - 8.3 gm/dL 01/04/2025 10:24 AM EDT [facility] Bili Total 0.3 0.2 - 1.3 mg/dL 01/04/2025 10:24 AM EDT [facility] ALT 11 <=41 U/L 01/04/2025 10:24 AM EDT [facility] AST 14 <=40 U/L 01/04/2025 10:24 AM EDT [facility] Alk Phos 152(H) 36 - 123 U/L 01/04/2025 10:24 AM EDT [facility] eGFR (CKD-EPIcr 2020) 57(L) >=60 mL/min/1.7 3 m2 01/04/2025 10:24 AM EDT [facility] Comment:Estimated GFR was ca lculated using the CKD-EPIcr (2020) equation refit without race. The equation is recommended by the National Kidney Foundation - [place] [employer] of Nephrology Task Force. Blood VENOUS STRUCTURE / Unknown Port / Unknown 01/04/2025 10:02 AM EDT 01/04/2025 10:03 AM EDT us Aster Parks CAKE DECORATOR CHEMISTRY ORDERABLES Final R esult [facility] [address] [place], [place] [id number] * (ABNORMAL) CBC WITH DIFF (01/04/2025 10:02 AM EDT) WBC 5.9 3.7 - 10.3 x10(3)/mc L 01/04/2025 10:06 AM EDT [facility] RBC 3.56(L) 3.90 - 5.20 x10(6)/mc L 01/04/2025 10:06 AM EDT [facility] Hgb 11.3 11.2 - 15.7 g/dL 01/04/2025 10:06 AM EDT [facility] Hct 34.9 34.0 - 45.0 % 01/04/2025 10:06 AM EDT [facility] MCV 98.0 80.0 - 100.0 fL 01/04/2025 10:06 AM EDT [facility] MCH 31.7 26.0 - 34.0 pg 01/04/2025 10:06 AM EDT [facility] MCHC 32.4 30.7 - 35.5 g/dL 01/04/2025 10:06 AM EDT [facility] RDW 15.6(H) <=14.9 % 01/04/2025 10:06 AM EDT [facility] Platelet 327 155 - 369 x10(3)/mc L 01/04/2025 10:06 AM EDT [facility] MPV 9.9 8.8 - 12.5 fL 01/04/2025 10:06 AM EDT [facility] Neut # Prelim 4.0 1.6 - 6.1 x10(3)/mc L 01/04/2025 10:06 AM EDT [facility] Comment:Preliminary automate d absolute neutrophil count. Value may change if manual differential is indicated. Neut Percent 67.1 % 01/04/2025 10:06 AM T [facility] Comment:Neutrophils equals s egs plus bands Imm Gran% 0.0 % 01/04/2025 10:06 AM [facility] Comment:Automated count of m etamyelocytes, myelocytes and promyelocytes. Lymph Percent 19.9 % 01/04/2025 10:06 AM EDT [facility] Leslie Percent 8.3 % 01/04/2025 10:06 AM EDT [facility] Eos Percent 3.9 % 01/04/2025 10:06 AM EDT [facility] Baso Percent 0.8 % 01/04/2025 10:06 AM EDT [facility] Neut # 4.0 1.6 - 6.1 x10(3)/mc L 01/04/2025 10:06 AM T [facility] Comment:Neutrophils equals s egs plus bands IMMGRAN# 0.0 0.0 - 0.1 x10(3)/mc L 01/04/2025 10:06 AM T [facility] Comment:Automated count of m etamyelocytes, myelocytes and promyelocytes. An absolute IG <0.1 is reported as 0.0. Lymph # 1.2 1.2 - 3.9 x10(3)/mc L 01/04/2025 10:06 AM EDT [facility] Leslie # 0.5 0.3 - 0.9 x10(3)/mc L 01/04/2025 10:06 AM EDT [facility] Eos# 0.2 0.0 - 0.5 x10(3)/mc L 01/04/2025 10:06 AM EDT [facility] Baso # 0.1 0.0 - 0.1 x10(3)/mc L 01/04/2025 10:06 AM EDT [facility] Blood VENOUS STRUCTURE / Unknown Port / Unknown 01/04/2025 10:02 AM EDT 01/04/2025 10:03 AM EDT us Aster Parks CAKE DECORATOR HEMATOLOGY ORDERABLES Final Result [facility] [address] [place] [address] documented in this encounter Visit Diagnoses Diagnosis Invasive ductal carcinoma of breast, female, left (HCC)- Primary documented in this encounter Administered Medications Inactive Administered Medications - up to 1 most recent administrations Medication Order MAR Action Action Date Dose Rate Site sodium chloride 0.9 % sterile syringe 10 mL 10 mL, Intravenous, ONCE, 1 dose, On Tue01/04/25 at 1000, For initial access of Venous Access Device., Dx: 1. Invasive ductal carcinoma of breast, female, left (HCC)Indications:Invasive ductal carcinoma of breast, female, left (HCC) Given 01/04/2025 10:03 AM EDT 10 mL documented in this encounter Orders Medications Ordered That Shaun ht Not Have Been Administered Count Last Ordered Date First Ordered Date sodium chloride 0.9 % steril e syringe 10 mL 1 01/04/2025 documented in this encounter Care Teams Ambulance Paramedic Relationship Specialty Start Date End Date Yony Walker MD [facility] [address] [place] [address] PCP - General Family Medicine 04/07/20 Charlotte Alvarado MD 1 [facility] [place] [id number] Medical Oncologist Internal Medicine-Hematology and Oncology 05/14/20 Sirisha Butterfield, RN Registered Nurse Infusion Therapy 01/04/25 01/04/25 documented as of this encounter
--- OUTSIDE RECORDS SUMMARY | 2025-01-04 10:04 | XMS_ITS | Encounter Summary ---
Author [place] [address] Care Team Providers Care Tagman Name Role Phone Yony Walker MD Primary Care Provider [phone] -[phone] Charlotte Alvarado MD Unavailable +1- [phone] Sirisha Butterfield RN Unavailable Unavailable Reason for Visit * Reason Comments Follow-up Invasive ductal carc inoma of breast, female, left Encounter Details Date Type Department Care Team (Latest Contact Info) Description 01/04/2025 10:04 AM EDT - 01/04/2025 10:59 AM EDT Hospital Encounter [facility] [place], [place] [id number] Cahrlotte Alvarado MD [address] [place] [address] [id number] Aster Parks APRN [address] [place] [address] [phone] Invasive ductal carcinoma of breast, female, left (HCC) (Primary Dx); Malignant neoplasm of overlapping sites of left female breast, unspecified estrogen receptor status (HCC); Lymphedema of left arm; Port-A-Cath in place; Encounter for antineoplastic chemotherapy; Antineoplastic chemotherapy induced anemia; Cancer, 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); CYP2D6 poor metabolizer (HCC) Discharge Disposition: Home or Self Care Social History Tobacco Use Types Packs/Day Years Used Date Smoking Tobacco: Never Smokeless Tobacco: Never Tobacco Cessation:Counseling Given: Not Answered Alcohol Use Standard Drinks/Week Comments No 0 [...] Sign Reading Time Taken Comments Blood Pressure 104/71 01/04/2025 10:05 AM EDT Pulse 84 01/04/2025 10:05 AM EDT Temperature 36.7 C (98.1 F) 01/04/2025 10:05 AM EDT Respiratory Rate 17 01/04/2025 10:05 AM EDT Oxygen Saturation 98% 01/04/2025 10:05 AM EDT Inhaled Oxygen Concentration - - Weight 68.8 kg (151 lb 9.6 oz) 01/04/2025 10:05 AM EDT Height 167.6 cm (5' 6 ) 01/04/2025 10:05 AM EDT Body Mass Index 24.47 01/04/2025 10:05 AM EDT documented in this encounter Medications at Time of Discharge acyclovir (ZOVIRAX) 400 mg Oral TabletIndications :H/O cold sores Take 1 Tablet by mouth 2 times daily. 60 Tablet 4 06/29/2024 Calcium Citrate-Vitamin D3 200 mg-3.125 mcg (125 unit) Oral Tablet Take 125 mcg by mouth daily. fluticasone propionate (FLONASE) 50 mcg/actuation Nasl [place], Suspension 1 [place] by Nasal route daily. ibuprofen (ADVIL;MOTRIN) 600 [...] documented in this encounter Progress Notes * Aster Parks APRN - 01/04/2025 10:30 AM EDT Images from the original note were not included. Patient: Michelle Nolan [facility]: [id number] Date of : 1960 Age: 64 y.o. Date of Service: 01/04/2025 HEMATOLOGY/ONCOLOGY FOLLOW UP VISIT Primary Printing Sign Machine Operator & Oncologist: Charlotte Alvarado MD DIAGNOSIS & [...] in greatest dimension. ER Low positive 4% NH Positive 2% HER2 Negative 03/31/2020 - Genetics [...] Stage IIIB (cT1, cN2a, cM0, G2, ER-, NH-, HER2-) Pathologic not assigned (ypT1mi pN1a M0) 02/2021 Medication Completed 8 cycles adjuvant xeloda 09/06/2023 - Pathology Left breast skin, punch biopsy: - Invasive ductal carcinoma in dermis, histologic grade 2 (2+3+1). - The invasive tumor measures 4 mm in size. 10/10/2023 - Molecular Testing [facility] [id number]. Blood to be collected on 10/14/23 during [...] HISTORY: Chief Complaint Patient presents with Follow-up Invasive ductal carcinoma of breast, female, left Michelle Nolan presents today for follow up and consideration of Trodelvy for recurrent TNBC, skinmets. Reports her energy level is ok. Appetite is good. Skin feels a bit more sensitive to touch. She gets tx on Fridays and by Tuesday she begins feeling a bit tired. Seasonal allergies present. Denies fevers, chills, nausea, vomiting, new lumps or bumps, cough or SOB MEDICATIONS: Medications and allergies reviewed PHYSICAL EXAM: Vitals: 01/04/25 1005 BP: 104/71 Pulse: 84 Resp: 17 Temp: 98.1 ??F (36.7 ??C) SpO2: 98% Wt Readings from Last 3 Encounters: 01/04/25 151 lb 9.6 oz (68.8 kg) 12/31/24 152 lb (68.9 kg) 12/17/24 148 lb (67.1 kg) ECO Pertinent information Physical Exam Constitutional: [...] of the ordering clinician. ASSESSMENT & PLAN No diagnosis found. Triple negative breast cancer, stage IIIB cT1, [...] abdominal abscess Bone Density -normal October 2020 f/u as scheduled Thank you for the opportunity to assist in the care of this patient, please feel free to contact meif I can be of any assistance. Aster Parks APRN Hematology and Medical Oncology [facility] documented in this encounter Plan of Treatment Upcoming Encounters Date Type Department Care Team (Late st Contact Info) Description 02/01/2025 8:45 AM EDT Appointment [place] [address] 02/01/2025 9:15 AM EDT Appointment [facility] [place] [address] Charlotte Alvarado MD [address] [place] [phone] 02/01/2025 9:30 AM EDT Appointment [facility] [address], [place] [phone] 02/08/2025 10:30 AM EDT Appointment [facility] [address], [place] [id number] 03/01/2025 10:00 AM EDT Appointment [facility] [place], [place] [id number] 03/01/2025 10:30 AM EDT Appointment [facility] [place], [place] [phone] Charlotte Alvarado MD [address] [place] [address] [id number] 03/01/2025 11:00 AM EDT Appointment [facility] [address], [place] [id number] 03/08/2025 10:30 AM EDT Appointment [facility], [place] [id number] 04/02/2025 11:20 AM EDT Office Visit [facility] [address] [phone] Melony Paula, CAMP ASSISTANT [address] [place] [address] documented as of this encounter Goals Goal [...] encounter Results * (ABNORMAL) COMPREHENSIVE METABOLIC PANEL (01/11/2025 11:15 AM EDT) Sodium 140 136 - 145 mmol/L 01/11/2025 11:41 AM EDT [facility] Potassium 4.2 3.5 - 5.0 mmol/L 01/11/2025 11:41 AM EDT [facility] Chloride 103 98 - 107 mmol/L 01/11/2025 11:41 AM EDT [facility] Total CO2 25 22 - 29 mmol/L 01/11/2025 11:41 AM EDT [facility] Anion Gap 12 7 - 16 mmol/L 01/11/2025 11:41 [facility] Calcium 8.8 8.8 - 10.4 mg/dL 01/11/2025 11:41 AM EDT [facility] Glucose Lvl 97 70 - 99 mg/dL 01/11/2025 11:41 AM EDT [facility] BUN 17 8 - 23 mg/dL 01/11/2025 11:41 AM EDT [facility] Creatinine 0.96 0.51 - 1.30 mg/dL 01/11/2025 11:41 AM EDT [facility] Albumin 3.8 3.2 - 4.6 gm/dL 01/11/2025 11:41 AM EDT [facility] Total Protein 6.4 6.4 - 8.3 gm/dL 01/11/2025 11:41 AM EDT [facility] Bili Total <0.2(L) 0.2 - 1.3 mg/dL 01/11/2025 11:41 AM EDT [facility] ALT 12 <=41 U/L 01/11/2025 11:41 AM EDT [facility] AST 13 <=40 U/L 01/11/2025 11:41 AM [facility] Alk Phos 141(H) 36 - 123 U/L 01/11/2025 11:41 AM EDT [facility] eGFR (CKD-EPIcr 2020) 65 >=60 mL/min/1.7 3 m2 01/11/2025 11:41 AM EDT [facility] Comment:Estimated GFR was ca lculated using the CKD-EPIcr (2020) equation refit without race. The equation is recommended by the National Kid[employer] - Citizen Of [place] Society of Nephrology Task Force. Blood VENOUS STRUCTURE / Unknown Port / Unknown 01/11/2025 11:15 AM EDT 01/11/2025 11:21 AM EDT us Charlotte Alvarado MD CHEMISTRY ORDERABLES Final Result [facility] [address] [id number] documented in this encounter Visit Diagnoses Diagnosis Invasive ductal carcinoma of breast, female, left (HCC)- Primary Malignant neoplasm of overlapping sites of left female breast, unspecified estrogen receptor status (HCC) Lymphedema of left arm Port-A-Cath in place Other postprocedural status Encounter for antineoplastic chemotherapy Antineoplastic chemotherapy induced anemia Cancer, 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
--- OUTSIDE RECORDS SUMMARY | 2025-01-04 11:00 | XMS_ITS | Encounter Summary ---
Author Organization [place] [address] Care Team Providers Care Motor Brakeman Name Role Phone Yony Walker MD Primary Care Provider [phone] -[phone] Charlotte Alvarado MD Unavailable +1- [phone] Sirisha Butterfield RN Unavailable Unavailable Reason for Visit * Oncology Medication Prior Authorization (Routine) - Authorization Not Needed Specialty Diagnoses / Procedures Referred By Contac t Referred To Contact Diagnoses Invasive ductal carcinoma of breast, female, left (HCC) Procedures ONCOLOGY MEDICATION AUTHORIZATION Charlotte Alvarado MD [address] [place] [address] Phone: tel: fax: [place] [address] Phone: tel: fax: Referral ID Status Reason Start Date Expiration Date Visits Requested Visits Authorized [id number] Authorization Not Needed 09/30/2023 02/15/2025 50 50 Encounter Details Date Type Department Care Team (Latest Contact Info) Description 01/04/2025 11:00 AM EDT - 01/04/2025 11:59 PM EDT Hospital Encounter [place] [address] Charlotte Alvarado MD [address] [place] [address] Invasive ductal carcinoma of breast, female, [...] Sign Reading Time Taken Comments Blood Pressure 135/68 01/04/2025 2:07 PM EDT Pulse 80 01/04/2025 2:07 PM EDT Temperature - - Respiratory Rate 18 01/04/2025 2:07 PM EDT Oxygen Saturation - - Inhaled Oxygen Concentration [...] daily. fluticasone propionate (FLONASE) 50 mcg/actuation Nasl [place], Suspension 1 [place] by Nasal route daily. ibuprofen (ADVIL;MOTRIN) 600 [...] encounter Miscellaneous Notes * Patient Instructions - Sirisha Butterfield RN - 01/04/2025 11:00 AM EDT [facility] Discharge Instructions Thank you for entrusting the [facility] with your care. We hope you are pleased with your outpatient care and services. Because we are most concerned with your health, we suggest you carefully read the following discharge instructions: Your Discharge Instructions: MEDICATION INSTRUCTIONS: Treatment received today: Orders Placed This Encounter Treatment Conditions Oncology MD OK To Treat [NC]: An observation period of 30 minutes is recommended after infusion. 0.9 % NaCl infusion aprepitant (CINVANTI) injection 130 mg acetaminophen (TYLENOL) tablet 650 mg palonosetron (ALOXI) injection 0.25 mg dexAMETHasone (DECADRON) tablet 12 mg famotidine (PEPCID) injection 20 mg sodium chloride 0.9% syringe 10 mL sacituzumab govitecan-hziy (TRODELVY) 350 mg in sodium chloride 0.9 % 250 mL chemo infusion heparin flush 100 unit/mL injection 500 Units [...] infection DON'T WAIT, PLEASE CALL US FIRST [phone]. [FOR URGENT ISSUES PLEASE DO NOT LEAVE A MESSAGE, FOLLOW PROMPTS TO THE DOCTOR EQUIPMENT INSPECTOR] For Gynecology / Oncology call : [phone] Our hours of operation are Tuesday - Tuesday 8:00 AM - 4:30 PM. [facility] [place] [address] 519 [phone] [address] Results for orders placed or performed during the hospital encounter of 01/04/25 COMPREHENSIVE METABOLIC PANEL Result Value Ref Range Sodium 141 136 - 145 mmol/L Potassium 4.0 3.5 - 5.0 mmol/L Chloride 104 98 - 107 mmol/L Total CO2 25 22 - 29 mmol/L Anion Gap 12 7 - 16 mmol/L Calcium 9.3 8.8 - 10.4 mg/dL Glucose Lvl 103 (H) 70 - 99 mg/dL BUN 21 8 - 23 mg/dL Creatinine 1.08 0.51 - 1.30 mg/dL Albumin 4.0 3.2 - 4.6 gm/dL Total Protein 6.7 6.4 - 8.3 gm/dL Bili Total 0.3 0.2 - 1.3 mg/dL ALT 11 <=41 U/L AST 14 <=40 U/L Alk Phos 152 (H) 36 - 123 U/L eGFR (CKD-EPIcr 2020) 57 (L) >=60 mL/min/1.73 m2 CBC WITH DIFF Result Value Ref Range WBC 5.9 3.7 - 10.3 x10(3)/mcL RBC 3.56 (L) 3.90 - 5.20 x10(6)/mcL Hgb 11.3 11.2 - 15.7 g/dL Hct 34.9 34.0 - 45.0 % MCV 98.0 80.0 - 100.0 fL MCH 31.7 26.0 - 34.0 pg MCHC 32.4 30.7 - 35.5 g/dL RDW 15.6 (H) <=14.9 % Platelet 327 155 - 369 x10(3)/mcL MPV 9.9 8.8 - 12.5 fL Neut # Prelim 4.0 1.6 - 6.1 x10(3)/mcL Neut Percent 67.1 % Imm Gran% 0.0 % Lymph Percent 19.9 % [place] Percent 8.3 % Eos Percent 3.9 % Baso Percent 0.8 % Neut # 4.0 1.6 - 6.1 x10(3)/mcL IMMGRAN# 0.0 0.0 - 0.1 x10(3)/mcL Lymph # 1.2 1.2 - 3.9 x10(3)/mcL [place] # 0.5 0.3 - 0.9 x10(3)/mcL Eos# 0.2 0.0 - 0.5 x10(3)/mcL Baso # 0.1 0.0 - 0.1 x10(3)/mcL documented in this encounter Plan of Treatment Upcoming Encounters Date Type Department Care Team (Late st Contact Info) Description 02/01/2025 8:45 AM EDT Appointment [facility] [place] [address] 02/01/2025 9:15 AM EDT [facility]ointment [facility] [place] [address] Charlotte Alvarado MD [address] [place] [id number] 02/01/2025 9:30 AM EDT Appointment [place] [address] 02/08/2025 10:30 AM EDT Appointment [place] [address] 03/01/2025 10:00 AM EDT Appointment [facility] [place] [address] 03/01/2025 10:30 AM EDT Appointment [facility] [place] [address] Charlotte Alvarado MD [address] [place] [address] 03/01/2025 11:00 AM EDT Appointment [facility] [place], [place] [phone] 03/08/2025 10:30 AM EDT Appointment [facility] [place], [place] [phone] 04/02/2025 11:20 AM EDT Office Visit [facility] [address] [facility] [address] [place] [phone] Melony Paula, DBA DEVELOPER [address] [place] [address] documented as of this encounter Goals Goal Patient Goal Type Associated Problems Recent Progress Patient-Stated? Author [facility] On track(2020 11:50 AM EDT) Rebecca Geiger, RN Note: Patient acknowledges understanding of new diagnosis, plan of care, available resources and how to contact Nurse Navigator with any future questions or concerns. [facility] No Tere Saucedo, RN Note: Patient will maintain a healthy weight. Breast [facility] No Basia Martínez, RN Note: Patient will be compliant with monthly Self Breast Exams and is aware of to who to contact for any unusual or concerning findings. documented as of this encounter Visit Diagnoses Diagnosis Invasive ductal carcinoma of breast, female, left (HCC)- Primary documented in this encounter Administered Medications Inactive Administered Medications - up to 1 most recent administrations Medication Order MAR Action Action Date Dose Rate Site 0.9 % NaCl infusion Intravenous, at 30 mL/hr, CONTINUOUS, Starting on 01/04/25 at 1130, Until 01/05/25 at 0412, For line puller during chemotherapy infusion., Dx: 1. Invasive ductal carcinoma of breast, female, left (HCC)Indications:Invasive ductal carcinoma of breast, female, left (HCC) New Bag 01/04/2025 11:44 AM EDT 30 mL/hr acetaminophen (TYLENOL) tablet 650 mg 650 mg, Oral, ONCE, 1 dose, On Tue01/04/25 at 1130, Maximum adult dose of acetaminophen is 4000 mg from all sources in 24 hours., Dx: 1. Invasive ductal carcinoma of breast, female, left (HCC)Indications:Invasive ductal carcinoma of breast, female, left (HCC) Given 01/04/2025 11:44 AM EDT 650 mg aprepitant (CINVANTI) injection 130 mg 130 mg, Intravenous, ONCE, 1 dose, On Tue01/04/25 at 1130, Administer undiluted solution IV push over 2 minutes, Dx: 1. Invasive ductal carcinoma of breast, female, left (HCC)Indications:Invasive ductal carcinoma of breast, female, left (HCC) Given 01/04/2025 11:45 AM EDT 130 mg dexAMETHasone (DECADRON) tablet 12 mg 12 mg, Oral, ONCE, 1 dose, On Tue01/04/25 at 1145, Dx: 1. Invasive ductal carcinoma of breast, female, left (HCC)Indications:Invasive ductal carcinoma of breast, female, left (HCC) Given 01/04/2025 11:44 AM EDT 12 mg famotidine (PEPCID) injection 20 mg 20 mg, Intravenous, ONCE, 1 dose, On Tue01/04/25 at 1145, Dx: 1. Invasive ductal carcinoma of breast, female, left (HCC)Indications:Invasive ductal carcinoma of breast, female, left (HCC) Given 01/04/2025 11:45 AM EDT 20 mg heparin flush 100 unit/mL injection 500 Units 500 Units, Intravenous, PRN, Starting on Tue01/04/25 at 1128, Until 01/05/25 at 0412, Line Care, For Venous Access Device care and maintenance., Dx: 1. Invasive ductal carcinoma of breast, female, left (HCC)Indications:Invasive ductal carcinoma of breast, female, left (HCC) Given 01/04/2025 2:08 PM EDT 500 Units palonosetron (ALOXI) injection 0.25 mg 0.25 mg, Intravenous, ONCE, 1 dose, On Tue01/04/25 at 1145, Dx: 1. Invasive ductal carcinoma of breast, female, left (HCC)Indications:Invasive ductal carcinoma of breast, female, left (HCC) Given 01/04/2025 11:45 AM EDT 0.25 mg sacituzumab govitecan-hziy (TRODELVY) 350 mg in sodium chloride 0.9 % 250 mL chemo infusion 350 mg (rounded from 346.5 mg = 5 mg/kg 69.3 kg Treatment plan Recorded weight), Intravenous, ONCE, 1 dose, On Tue01/04/25 at 1200, Administer over 1 Hours, +++ Caution: CHEMOTHERAPEUTIC AGENT +++ Dose can be infused over 1 hour if patient tolerated previous doses. Upon completion of the infusion, flush the intravenous line with 20 mL of NS, Dx: 1. Invasive ductal carcinoma of breast, female, left (HCC)Indications:Invasive ductal carcinoma of breast, female, left (HCC) IV Started 01/04/2025 12:58 PM EDT 350 mg 250 mL/hr sodium chloride 0.9% syringe 10 mL 10 mL, Intravenous, PRN, Starting on Tue01/04/25 at 1128, Until 01/05/25 at 0412, Line Care, For Venous Access Device care and maintenance., Dx: 1. Invasive ductal carcinoma of breast, female, left (HCC)Indications:Invasive ductal carcinoma of breast, female, left (HCC) Given 01/04/2025 2:07 PM EDT 10 mL documented in this encounter Care Teams Motor Brakeman Relationship Specialty Start Date End Date Yony Walker MD [facility] [address] [place] [address] PCP - General Family Medicine 04/07/20 Cahrlotte Alvarado MD [address] [place] [address] [place] [address] Medical Oncologist Internal Medicine-Hematology and Oncology 05/14/20 Sirisha Butterfield, ANITA Registered Nurse Infusion Therapy 01/04/25 01/04/25 documented as of this encounter
--- OUTSIDE RECORDS SUMMARY | 2025-01-11 10:58 | XMS_ITS | Encounter Summary ---
Author Organization [place] [address] Care Team Providers Care Twisting Frame Changer Name Role Phone Yony Walker MD Primary Care Provider [phone] Charlotte Alvarado MD Unavailable [phone] Anna Raymundo RN Unavailable Unavailable Reason for Visit * Oncology Medication Prior Authorization (Routine) - Authorization Not Needed Specialty Diagnoses / Procedures Referred By Contac t Referred To Contact Diagnoses Invasive ductal carcinoma of breast, female, left (HCC) Procedures ONCOLOGY MEDICATION AUTHORIZATION Charlotte Alvarado MD [address] [place] [address] Phone: tel: fax: [place] [address] Phone: tel: fax: Referral ID Status Reason Start Date Expiration Date Visits Requested Visits Authorized [id number] Authorization Not Needed 09/30/2023 02/15/2025 50 50 Encounter Details Date Type Department Care Team (Latest Contact Info) Description 01/11/2025 10:58 AM EDT - 01/11/2025 11:59 PM EDT Hospital Encounter [facility] [place] [id number] Charlotte Alvarado MD [address] [place], [place] [id number] Invasive ductal carcinoma of breast, female, left [...] Sign Reading Time Taken Comments Blood Pressure 151/78 01/11/2025 2:02 PM EDT Pulse 77 01/11/2025 2:02 PM EDT Temperature 36.5 C (97.7 F) 01/11/2025 11:06 AM EDT Respiratory Rate 18 01/11/2025 11:0 6 AM EDT Oxygen Saturation - - Inhaled Oxygen Concentration - - Weight 68.9 kg (151 lb 12.8 oz) 025 11:06 AM EDT Height - - Body Mass Index 24.5 01/04/2025 10:05 AM EDT documented in this encounter Medications at Time of Discharge acyclovir (ZOVIRAX) 400 mg Oral TabletIndications :H/O cold sores Take 1 Tablet by mouth 2 times daily. 60 Tablet 4 06/29/2024 Calcium Citrate-Vitamin D3 200 mg-3.125 mcg (125 unit) Oral Tablet Take 125 mcg by mouth daily. fluticasone propionate (FLONASE) 50 mcg/actuation Nasl [place], Suspension 1 [place] by Nasal route daily. ibuprofen (ADVIL;MOTRIN) 600 [...] encounter Miscellaneous Notes * Patient Instructions - Anna Raymundo RN - 01/11/2025 11:00 AM EDT [facility] Discharge Instructions Thank you for entrusting the [facility] with your care. We hope you are pleased with your outpatient care and services. Because we are most concerned with your health, we suggest you carefully read the following discharge instructions: Your Discharge Instructions: MEDICATION INSTRUCTIONS: Treatment received today: Trodelvy, Aloxi, Decadron, Tylenol and Cinvanti Reviewed medications administered today and possible side effects Dizziness and sleepiness are possible side effects of pain medication. When taking pain medications, do not drink alcohol or drive. ACTIVITY INSTRUCTIONS: Rest today, increase activity as tolerated. DIET INSTRUCTIONS: diet as tolerated FOLLOW-UP CARE: Call your doctor for a [...] is unavailable, go to the Emergency Room. Additional Instructions: Our hours of operation are Tuesday - Tuesday 8:00 AM - 4:30 PM. [facility] [place] [address] Entrance # [place] [address] [facility] [address] [address] [place], [place] [id number] [place] [address] [place] [address] Results for orders placed or performed during the hospital encounter of 01/11/25 CBC WITH DIFF Result Value Ref Range WBC 8.2 3.7 - 10.3 x10(3)/mcL RBC 3.48 (L) 3.90 - 5.20 x10(6)/mcL Hgb 11.1 (L) 11.2 - 15.7 g/dL Hct 33.8 (L) 34.0 - 45.0 % MCV 97.1 80.0 - 100.0 fL MCH 31.9 26.0 - 34.0 pg MCHC 32.8 30.7 - 35.5 g/dL RDW 15.4 (H) <=14.9 % Platelet 331 155 - 369 x10(3)/mcL MPV 10.0 8.8 - 12.5 fL Neut # Prelim 6.1 1.6 - 6.1 x10(3)/mcL Neut Percent 74.8 % Imm Gran% 0.4 % Lymph Percent 13.4 % [place] Percent 6.0 % Eos Percent 5.2 % Baso Percent 0.2 % Neut # 6.1 1.6 - 6.1 x10(3)/mcL IMMGRAN# 0.0 0.0 - 0.1 x10(3)/mcL Lymph # 1.1 (L) 1.2 - 3.9 x10(3)/mcL [place] # 0.5 0.3 - 0.9 x10(3)/mcL Eos# 0.4 0.0 - 0.5 x10(3)/mcL Baso # 0.0 0.0 - 0.1 x10(3)/mcL COMPREHENSIVE METABOLIC PANEL Result Value Ref Range Sodium 140 136 - 145 mmol/L Potassium 4.2 3.5 - 5.0 mmol/L Chloride 103 98 - 107 mmol/L Total CO2 25 22 - 29 mmol/L Anion Gap 12 7 - 16 mmol/L Calcium 8.8 8.8 - 10.4 mg/dL Glucose Lvl 97 70 - 99 mg/dL BUN 17 8 - 23 mg/dL Creatinine 0.96 0.51 - 1.30 mg/dL Albumin 3.8 3.2 - 4.6 gm/dL Total Protein 6.4 6.4 - 8.3 gm/dL Bili Total <0.2 (L) 0.2 - 1.3 mg/dL ALT 12 <=41 U/L AST 13 <=40 U/L Alk Phos 141 (H) 36 - 123 U/L eGFR (CKD-EPIcr 2020) 65 >=60 mL/min/1.73 m2 documented in this encounter Plan of Treatment Upcoming Encounters Date Type Department Care Team (Late st Contact Info) Description 02/01/2025 8:45 AM EDT Appointment [facility] [place] [address] 02/01/2025 9:15 AM EDT [facility]ment [facility] [place] [address] Charlotte Alvarado MD [address] [place] [address] 02/01/2025 9:30 AM EDT Appointment [place] [address] 02/08/2025 10:30 AM EDT [facility] [place] [address] 03/01/2025 10:00 AM EDT Appointment [facility] [place] [address] 03/01/2025 10:30 AM EDT [facility]ointment [facility] [place] [address] Charlotte Alvarado MD [address] [place] [address] 03/01/2025 11:00 AM EDT [facility]ment [facility] [place] [address] 03/08/2025 10:30 AM EDT Appointment [facility] [place] [address] 04/02/2025 11:20 AM EDT Office Visit [facility] [address] [address] [place] [address] Melony Paula, OPTOMECHANICAL TECHNICIAN [address] [place], [place] [phone] documented as of this encounter Goals Goal Patient Goal Type Associated Problems Recent Progress Patient-Stated? Author [facility] Health On track(2020 11:50 AM EDT) Rebecca Geiger, RN Note: Patient acknowledges understanding of new diagnosis, plan of care, available resources and how to contact Nurse Navigator with any future questions or concerns. [facility] Tere Dillard, ANITA Note: Patient will maintain a healthy weight. [facility] No Basia Martínez, RN Note: Patient will be compliant with monthly Self Breast Exams and is aware of to who to contact for any unusual or concerning findings. documented as of this encounter Procedures Procedure Name Priority Date/Time Associated Diagnosis Comments CBC WITH DIFF STAT 01/11/2025 11:15 AM EDT Invasive ductal carcinoma of breast, female, left (HCC) COMPREHENSIVE METABOLIC PANEL STAT 01/11/2025 11:15 AM EDT Invasive ductal carcinoma of breast, female, left (HCC) documented in this encounter Results * (ABNORMAL) COMPREHENSIVE METABOLIC PANEL (01/11/2025 11:15 AM EDT) Sodium 140 136 - 145 mmol/L 01/11/2025 11:41 AM EDT [facility] Potassium 4.2 3.5 - 5.0 mmol/L 01/11/2025 11:41 AM EDT [facility] Chloride 103 98 - 107 mmol/L [facility]/11[facility] Total CO2 25 22 - 29 mmol/L 01/11/2025 11:[facility] Anion Gap 12 7 - 16 mmol/L 01/11/2025 11:41 AM [facility] Calcium 8.8 8.8 - 10.4 mg/dL 01/11/2025 11:[facility] Glucose Lvl 97 70 - 99 mg/dL 01/11/2025 11:41 AM EDT [facility] BUN 17 8 - 23 mg/dL 01/11/2025 11:41 AM [facility] Creatinine 0.96 0.51 - 1.30 mg/dL 01/11/2025 11:[facility] Albumin 3.8 3.2 - 4.6 gm/dL 01/11/2025 11:41 AM [facility] Total Protein 6.4 6.4 - 8.3 gm/dL 01/11/2025 11:41 AM [facility] Bili Total <0.2(L) 0.2 - 1.3 mg/dL 01/11/2025 11:41 AM [facility] ALT 12 <=41 U/L 01/11/2025 11:41 AM [facility] AST 13 <=40 U/L 01/11/2025 11:41 AM [facility] Alk Phos 141(H) 36 - 123 U/L 01/11/2025 11:41 AM [facility] eGFR (CKD-EPIcr 2020) 65 >=60 mL/min/1.7 3 m2 01/11/2025 11:41 AM [facility] Comment:Estimated GFR was ca lculated using the CKD-EPIcr (2020) equation refit without race. The equation is recommended by the National [employer] - [place] [employer] Neph[employer] Task Force. Blood VENOUS STRUCTURE / Unknown Port / Unknown 01/11/2025 11:15 AM EDT 01/11/2025 11:21 AM EDT us Charlotte Alvarado MD CHEMISTRY ORDERABLES Final Result [facility] [address] [place] [address] * (ABNORMAL) CBC WITH DIFF (01/11/2025 11:15 AM EDT) WBC 8.2 3.7 - 10.3 x10(3)/mc L 01/11/2025 11:24 AM EDT [facility] RBC 3.48(L) 3.90 - 5.20 x10(6)/mc L 01/11/2025 11:24 AM EDT [facility] Hgb 11.1(L) 11.2 - 15.7 g/dL 01/11/2025 11:24 AM EDT [facility] Hct 33.8(L) 34.0 - 45.0 % 01/11/2025 11:24 AM EDT [facility] MCV 97.1 80.0 - 100.0 fL 01/11/2025 11:24 AM EDT [facility] MCH 31.9 26.0 - 34.0 pg 01/11/2025 11:24 AM EDT [facility] MCHC 32.8 30.7 - 35.5 g/dL 01/11/2025 11:24 AM EDT [facility] RDW 15.4(H) <=14.9 % 01/11/2025 11:24 AM EDT [facility] Platelet 331 155 - 369 x10(3)/mc L 01/11/2025 11:24 AM EDT [facility] MPV 10.0 8.8 - 12.5 fL 01/11/2025 11:24 AM EDT [facility] Neut # Prelim 6.1 1.6 - 6.1 x10(3)/mc L 01/11/2025 11:24 AM EDT [facility] Comment:Preliminary automate d absolute neutrophil count. Value may change if manual differential is indicated. Neut Percent 74.8 % 01/11/2025 11:24 AM EDT [facility] Comment:Neutrophils equals s egs plus bands Imm Gran% 0.4 % 01/11/2025 11:24 AM EDT [facility] Comment:Automated count of m etamyelocytes, myelocytes and promyelocytes. Lymph Percent 13.4 % 01/11/2025 11:24 AM EDT [facility] [place] Percent 6.0 % 01/11/2025 11:24 AM EDT [facility] Eos Percent 5.2 % 01/11/2025 11:24 AM EDT [facility] Baso Percent 0.2 % 01/11/2025 11:24 AM EDT [facility] Neut # 6.1 1.6 - 6.1 x10(3)/mc L 01/11/2025 11:24 AM EDT [facility] Comment:Neutrophils equals s egs plus bands IMMGRAN# 0.0 0.0 - 0.1 x10(3)/mc L 01/11/2025 11:24 AM EDT [facility] Comment:Automated count of m etamyelocytes, myelocytes and promyelocytes. An absolute IG <0.1 is reported as 0.0. Lymph # 1.1(L) 1.2 - 3.9 x10(3)/mc L 01/11/2025 11:24 AM EDT [facility] [place] # 0.5 0.3 - 0.9 x10(3)/mc L 01/11/2025 11:24 AM EDT [facility] Eos# 0.4 0.0 - 0.5 x10(3)/mc L 01/11/2025 11:24 AM EDT [facility] Baso # 0.0 0.0 - 0.1 x10(3)/mc L 01/11/2025 11:24 AM EDT [facility] Blood VENOUS STRUCTURE / Unknown Port / Unknown 01/11/2025 11:15 AM EDT 01/11/2025 11:21 AM EDT us Charlotte Alvarado MD HEMATOLOGY ORDERABLE S Final Result [facility] [address] [place] [phone] documented in this encounter Visit Diagnoses Diagnosis Invasive ductal carcinoma of breast, female, left (HCC)- Primary documented in this encounter Administered Medications Inactive Administered Medications - up to 1 most recent administrations Medication Order MAR Action Action Date Dose Rate Site 0.9 % NaCl infusion Intravenous, at 30 mL/hr, CONTINUOUS, Starting on Tue01/11/25 at 1145, Until 01/12/25 at 0415, For front line leader during chemotherapy infusion., Dx: 1. Invasive ductal carcinoma of breast, female, left (HCC)Indications:Invasive ductal carcinoma of breast, female, left (HCC) New Bag 01/11/2025 11:47 AM EDT 30 mL/hr acetaminophen (TYLENOL) tablet 650 mg 650 mg, Oral, ONCE, 1 dose, On Tue01/11/25 at 1145, Maximum adult dose of acetaminophen is 4000 mg from all sources in 24 hours., Dx: 1. Invasive ductal carcinoma of breast, female, left (HCC)Indications:Invasive ductal carcinoma of breast, female, left (HCC) Given 01/11/2025 12:03 PM EDT 650 mg aprepitant (CINVANTI) injection 130 mg 130 mg, Intravenous, ONCE, 1 dose, On Tue01/11/25 at 1145, Administer undiluted solution IV push over 2 minutes, Dx: 1. Invasive ductal carcinoma of breast, female, left (HCC)Indications:Invasive ductal carcinoma of breast, female, left (HCC) Given 01/11/2025 12:00 PM EDT 130 mg dexAMETHasone (DECADRON) tablet 12 mg 12 mg, Oral, ONCE, 1 dose, On Tue01/11/25 at 1200, Dx: 1. Invasive ductal carcinoma of breast, female, left (HCC)Indications:Invasive ductal carcinoma of breast, female, left (HCC) Given 01/11/2025 12:03 PM EDT 12 mg famotidine (PEPCID) injection 20 mg 20 mg, Intravenous, ONCE, 1 dose, On Tue01/11/25 at 1200, Dx: 1. Invasive ductal carcinoma of breast, female, left (HCC)Indications:Invasive ductal carcinoma of breast, female, left (HCC) Given 01/11/2025 12:06 PM EDT 20 mg heparin flush 100 unit/mL injection 500 Units 500 Units, Intravenous, PRN, Starting on Tue01/11/25 at 1101, Until 01/12/25 at 0415, Line Care, For Venous Access Device care and maintenance., Dx: 1. Invasive ductal carcinoma of breast, female, left (HCC)Indications:Invasive ductal carcinoma of breast, female, left (HCC) Given 01/11/2025 2:01 PM EDT 500 Units palonosetron (ALOXI) injection 0.25 mg 0.25 mg, Intravenous, ONCE, 1 dose, On Tue01/11/25 at 1200, Dx: 1. Invasive ductal carcinoma of breast, female, left (HCC)Indications:Invasive ductal carcinoma of breast, female, left (HCC) Given 01/11/2025 12:04 PM EDT 0.25 mg pegfilgrastim (NEULASTA) on-body injector 6 mg 6 mg, Subcutaneous, ONCE, 1 dose, On Tue01/11/25 at 1330, The OnBody injector is NOT approved to [...] carcinoma of breast, female, left (HCC) Given 01/11/2025 2:02 PM EDT 6 mg Right Arm sacituzumab govitecan-hziy (TRODELVY) 350 mg in sodium chloride 0.9 % 250 mL chemo infusion 350 mg (rounded from 346.5 mg = 5 mg/kg 69.3 kg Treatment plan Recorded weight), Intravenous, ONCE, 1 dose, On Tue01/11/25 at 1230, Administer over 1 Hours, +++ Caution: CHEMOTHERAPEUTIC AGENT +++ Dose can be infused over 1 hour if patient tolerated previous doses. Upon completion of the infusion, flush the intravenous line with 20 mL of NS, Dx: 1. Invasive ductal carcinoma of breast, female, left (HCC)Indications:Invasive ductal carcinoma of breast, female, left (HCC) IV Started 01/11/2025 12:50 PM EDT 350 mg 250 mL/hr sodium chloride 0.9 % sterile syringe 10 mL 10 mL, Intravenous, ONCE, 1 dose, On Tue01/11/25 at 1115, For initial access of Venous Access Device., Dx: 1. Invasive ductal carcinoma of breast, female, left (HCC)Indications:Invasive ductal carcinoma of breast, female, left (HCC) Given 01/11/2025 11:15 AM EDT 10 mL sodium chloride 0.9% syringe 10 mL 10 mL, Intravenous, PRN, Starting on Tue01/11/25 at 1101, Until 01/12/25 at 0415, Line Care, For Venous Access Device care and maintenance., Dx: 1. Invasive ductal carcinoma of breast, female, left (HCC)Indications:Invasive ductal carcinoma of breast, female, left (HCC) Given 01/11/2025 2:01 PM EDT 10 mL documented in this encounter Care Teams Twisting Frame Changer Relationship Specialty Start Date End Date Yony Walker MD [address] [place] [address] PCP - General Family Medicine 04/07/20 Charlotte Alvarado MD [address] [place] [address] Medical Oncologist Internal Medicine-Hematology and Oncology 05/14/20 Anna Raymundo, RN Registered Nurse Infusion Therapy 01/11/25 01/11/25 documented as of this encounter
--- OUTSIDE RECORDS SUMMARY | 2025-01-15 10:54 | XMS_ITS | Encounter Summary ---
Author Organization [place] [address] Care Team Providers Care Aquatic Scientist Name Role Phone Yony Walker MD Primary Care Provider [phone] Charlotte Alvarado MD Unavailable [phone] Reason for Referral * Surgical (Routine) - Pending Review Specialty Diagnoses / Procedures Referred By Ventura estrada Referred To Contact Gastroenterology Diagnoses History of breast cancer Mediastinal adenopathy Procedures ENDOSCOPIC BRONCHIAL ULTRASOUND (EBUS) [facility] EBUS GUIDED SAMPL 1/2 NODE STATION/Maryanne Zamora MD [address] [place] [address] Phone: tel: fax: Referral ID Status Reason Start Date Expiration Date V isits Requested Visits Authorized [id number] Pending Review 12/31/2024 12/31/2025 1 1 Reason for Visit * Surgical (Routine) - Pending Review Specialty Diagnoses / Procedures Referred By Contac t Referred To Contact Gastroenterology Diagnoses History of breast cancer Mediastinal adenopathy Procedures ENDOSCOPIC BRONCHIAL ULTRASOUND (EBUS) [facility] EBUS GUIDED SAMPL 1/2 NODE STATION/Maryanne Zamora MD [address] [place] [address] Phone: tel: fax: Referral ID Status Reason Start Date Expiration Date V isits Requested Visits Authorized [id number] Pending Review 12/31/2024 12/31/2025 1 1 Encounter Details Date Type Department Care Team (Latest Contact Info) Description 01/15/2025 10:54 AM EDT - 01/15/2025 11:22 AM EDT Hospital Encounter [facility] [address] [place] [address] Maryanne Lawler MD [address] [place] [address] Blake Pride MD [address] [facility] [place] [address] Cheryl Lagunas CRNA [address] [facility] [place] [address] Essential hypertension (Primary Dx); Preop testing; History of breast cancer, left breast; Mediastinal adenopathy; History of breast cancer Discharge Disposition: Home or Self Care Social [...] Sign Reading Time Taken Comments Blood Pressure - - Pulse - - Temperature - - Respiratory Rate - - Oxygen Saturation - - Inhaled Oxygen Concentration - - Weight 68.9 kg (152 lb) 01/03/2025 12:26 PM EDT Height 167.6 cm (5' 6 ) 01/03/2025 12:26 PM EDT Body Mass Index 24.32 01/04/2025 10:05 AM EDT documented in this encounter Discharge Instructions * Discharge Instructions* Rayne Costello RN - 01/15/2025 11:32 AM EDT Images from the original note were not included. [facility] Discharge Instructions - Following Endoscopy A responsible adult, 18 years or older must be in attendance until the next A.M. Rest quietly today. May resume usual diet. Do not drive or operate any machinery until the next A.M., or as instructed. No alcoholic beverages for 24 hours. Do not make any legal or important decisions for the next 24 hours. Call the physician???s office for a follow-up visit or questions/concerns. Patient discharged to the care of Jean Claude (spouse). ADDITIONAL INSTRUCTIONS: Call Dr. Lawler at [phone] if the following occurs: Bronchoscopy: Chest pain, coughing more than a small amount of blood, difficulty in swallowing, shortness of breath, body temp. over 101.5 degrees, severe sore throat, severe headache, or severe nosebleed. +++++++++++++++++++++++++++++++++++++++++++++++++++++++++++++++++++ [facility] Discharge Instructions - Following Anesthesia We appreciate the opportunity to care for you today! Here are a few reminders as you head home: A responsible adult, 18 years or older must be in attendance until tomorrow morning. Rest quietly today. May resume usual diet as tolerated or as directed by your surgeon. Do not drive or operate any machinery until tomorrow morning or as instructed. Do not make any legal or important decisions for the next 24 hours. Do not drink alcoholic beverages or take sleeping pills for 24 hours unless otherwise directed. If you received a nerve block for post-operative pain control, protect your blocked arm/leg. It maybe numb. Carefully pad your limb to prevent pressure sores and other injuries. Be careful with applying cold/warm to the blocked limb. Numbness will alter the sensation of the limb and could damage your skin if you cannot correctly feel the temperature. If you have questions or concerns regarding your anesthesia experience, please call our office at . Get Well Soon! [facility] +++++++++++++++++++++++++++++++++++++++++++++++++++++++++++++++++++ documented in this encounter Medications at Time of Discharge acyclovir (ZOVIRAX) 400 mg Oral TabletIndications :H/O cold sores Take 1 Tablet by mouth 2 times daily. 60 Tablet 4 06/29/2024 Calcium Citrate-Vitamin D3 200 mg-3.125 mcg (125 unit) Oral Tablet Take 125 mcg by mouth daily. fluticasone propionate (FLONASE) 50 mcg/actuation Nasl [place], Suspension 1 [place] by Nasal route daily. 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 Hyperlipidemia Hypertension Invasive ductal carcinoma of breast, female, left (HCC) Last chemo 09-05-20, CBC done 09-12-20 Motion sickness Syncope and collapse after delivery of all kids, have fainting episodes Thyroid disease Social History Socioeconomic History Marital status: Spouse [...] on file Housing Stability: Not on file Current Outpatient Medications Medication Instructions acyclovir (ZOVIRAX) 400 mg, Oral, 2 TIMES DAILY Calcium Citrate-Vitamin D3 200 mg-3.125 mcg (125 unit) Oral Tablet 125 mcg, DAILY fluticasone propionate (FLONASE) 50 mcg/actuation Nasl [place], Suspension 1 [place], DAILY ibuprofen (ADVIL;MOTRIN) 600 mg, 3 TIMES DAILY LEVOthyroxine (SYNTHROID) 75 mcg, DAILY lisinopriL-hydrochlorothiazide (PRINZIDE;ZESTORETIC) 10-12.5 mg Oral Tablet 0.5 Tablets, DAILY loperamide (IMODIUM) 2 mg Oral Capsule Take 4 mg by mouth for the first dose and then 2 mg by mouthas needed with every loose bowel movement up to a total of 16 mg/day(8 caps/day). multivitamin (THERAGRAN) Oral Tablet 1 Tablet, DAILY pantoprazole (PROTONIX) 40 mg, Oral, DAILY prochlorperazine (COMPAZINE) 10 mg Oral Tablet Take 1 tablet by mouth every 6 hours as needed for nausea and vomiting. rosuvastatin (CRESTOR) 10 mg, DAILY Last Oral Intake: for adequate period of time to ensure gastric emptying Previous Anesthesia Reaction: no Comment: Nurse:endoscopy nursing Physician Pre-Procedure Assessment: Risks, benefits, potential complications and alternatives discussed with the patients legally authorized billing representative. The patient's pre-procedure physical assessment indicates that the patient is suitable candidate for and agrees to the planned sedation and procedure. Procedure alternatives and risks explained in detail. Including but not limited to bleeding, introduction of infection, worsening respiratory function, lung puncture and collapse, in rare circumstances. Incidence of 1 to 3% of life-threatening complication with bronchoscopy in the literature d iscussed.Patient agreeable to proceeding. Cardiovascular and Vital signs Stable: yes Comment: Vitals: 01/15/25 1136 BP: 124/72 Pulse: 86 Resp: 16 Temp: 97.3 ??F (36.3 ??C) SpO2: 94% Adequate/Patient Oral Airway yes Comment: Patient's Planned Disposition Post Procedure: Home H&P Update The patient was examined and NO change has occurred in the patient's condition since the H&P was completed. History and Physical reviewed? YES Changes? 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 PLAN On trodelvy- antibody drug conjugate. Serial PET CT with increasing FDF avidity in station 7, R10 andR4 even on uncorrected PET images. Plan for EBUS. Pre-Op Diagnosis: as above Plan/Procedure: bronchoscopy with as above Review of Systems focused ROS negative except as mentioned in H and P and update Vitals: Previous Patient Vitals for the past 8 hrs: Vitals: 01/15/25 1136 BP: 124/72 Pulse: 86 Resp: 16 Temp: 97.3 ??F (36.3 ??C) SpO2: 94% Constitutional: Appearance: well-developed. HENT: Head: Normocephalic and atraumatic. Eyes: [...] is warm and dry. Neurological: Mental Status: alert and oriented to person, place, and time. Physician Signature: Maryanne Lawler MD. FCCP. DAABIP Pulmonary Disease - [place] [employer] Critical Care Medicine- [place] [employer] Interventional pulmonology- [place] [employer] of Bronchology and Interventional Pumonology Neurocritical Care - [place] [employer] Psychiatry and Neurology Date:01/15/25 Time:12:40 PM Source Note - Maryanne Lawler MD - 12/31/2024 2:45 PM [...] daily. fluticasone propionate (FLONASE) 50 mcg/actuation Nasl [place], Suspension 1 [place] by Nasal route daily. ibuprofen (ADVIL;MOTRIN) 600 [...] results found for: FEV1 , FVC , [id number] , TLC , DLCO VISIT ORDERS No orders of the defined types were placed in this encounter. Michelle Trena Nolan had no medications administered during this visit. 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 Maryanne Lawler MD. [facility]. DAABIP Pulmonary Disease - [place] [employer] Critical Care Medicine- [place] [employer] Interventional pulmonology- [place] [employer] of Bronchology and Interventional Pumonology Neurocritical Care - [place] [employer] Psychiatry and Neurology Port A Cath Chest Right (Active) Future Appointments Date Time Provider Department Center 12/31/2024 2:45 PM Maryanne Lawler MD [facility] 01/04/2025 10:00 AM [facility] PORT ACCESS NURSE LAB [facility] 01/04/2025 10:30 AM Aster Parks MARINE STEAMFITTER [facility] 01/04/2025 11:00 AM [...] above medical record. documented in this encounter Procedure Notes * Maryanne Lawler MD - 01/15/2025 12:30 PM EDT [facility] Brief Procedure/Operative Note. (See Full Procedure note under Chart Review and Procedure tab) EBUS bronchoscopy Linear and/or Radial and Bronchoscopy with sampling with lavage/wash/needle/brush/forceps Findings Subcarinal station (7) evaluated. Passes taken with a 22 gauge needle. Right lower paratracheal station (4R) evaluated. Passes taken with a 22 gauge needle. Right hilar station (10R) evaluated. Passes taken with a 22 gauge needle. Right interlobar station (11R) evaluated. Passes taken with a 22 gauge needle. Nodes observed under convex ultrasound guidance. Onsite splitter tender was present. Recommendation Await pathology results Maryanne Lawler MD. [facility]. DAABIP Pulmonary Disease - [place] [employer] Critical Care Medicine- [place] [employer] Interventional pulmonology- [place] [employer] of Bronchology and Interventional Pumonology Neurocritical Care - [place] [employer] Psychiatry and Neurology SPECIMENS: ID Type Source Tests Collected by Time Destination 1 : R4 lymph node fine needle aspiration- ebus Aspirate Lymph Node NON-RAYON TESTER CYTOLOGY REQUEST Maryanne Lawler MD 01/15/2025 1305 2 : station 7 fine needle aspiration- ebus Aspirate Lymph Node NON-RAYON TESTER CYTOLOGY REQUEST Maryanne Lawler MD 01/15/2025 1312 3 : R10 lymph node fine needle aspiration- ebus Aspirate Lymph Node NON-RAYON TESTER CYTOLOGY REQUEST Maryanne Lawler MD 01/15/2025 1322 4 : R11 lymph node fine needle aspiration- ebus Aspirate Lymph Node NON-RAYON TESTER CYTOLOGY REQUEST Maryanne Lawler MD 01/15/2025 1329 5 : bronchus wash Wash Bronchus LOWER RESPIRATORY CULTURE (STAIN INCLUDED), FUNGUS CULTURE (NO STAIN), ACID FAST BACILLI CULTURE AND SMEAR (STAIN INCLUDED), NON-RAYON TESTER CYTOLOGY REQUEST Mrayanne Lawler MD 01/15/2025 1335 documented in this encounter Nursing Notes * Vivi Virgen RN - 01/15/2025 12:30 PM EDT Images from the original note were not included. PREPARING FOR YOUR ENDOSCOPY PROCEDURE Date of Surgery: 01/15/2025 Arrival Time: 11:30 am Medications Take the following medications on the morning of surgery: None Medications to hold prior to surgery; Verify with your doctor for possibly discontinuing the following medications: blood thinners, aspirin, anti-inflammatories, or supplements. Do not take any RAMÓN inhibitors (ends in PRIL ) or angiotensin receptor blockers (ends in SARTAN )on the day of surgery. -Lisinopril-HCT. Food, Drinks, Tobacco Do not eat or drink after midnight. This includes gum, mints, candy. If you are having a procedure which includes prep, please follow office instructions. No exceptions or substitutions to these restrictions. Wire Annealer It is important to have a Wire Annealer, someone who is 18 years or older, to accompany you and remain in the facility for the duration of your surgery. This person should be available for the Endoscopy Team to communicate with before, during and after your surgery. Because you are receiving anesthesia, someone is needed to drive you home and remain with you for at least 24 hours after surgery to make sure you are safe during that time. A parent must accompany a child under 18 years of age scheduled for the procedure and remain at thespital until the child is discharged. We also recommend that no children be present on the day of surgery. If you have a concern, please reach out to our department [phone]. Hygiene [place] your teeth and gargle the morning of surgery. Shower the morning of surgery or the night before. Do not wear makeup (including eye makeup) lotion, powder, deodorant, perfume, or cologne. Personal Items Wear clean, simple, loose-fitting clothing (no jeans) and sturdy shoes (no flip flops, slides or crocs) to the hospital. Do not bring unnecessary valuables with you. It is policy that [facility] does not assume responsibility for lost, stolen or broken personal items that are brought in. Exceptions may be consideredfor items which are considered necessary for your healthcare. These items will be formally documented. Remove all jewelry prior to your procedure to prevent injury. We will not tape wedding rings/bands. Glasses and contacts will need to be removed prior to surgery. Please bring a case for them. Bring with You Bring a copy of your Living Will and/or Durable Power of [place] for Healthcare. Notify the Doctor Notify your doctor if you develop any illness (fever, cold, cough, sore throat, nausea, vomiting, skin rashes etc.) between now and surgery time Notify your doctor and Pre-admission testing ([phone]) if you have any changes in your health conditions or if any new medications are ordered between now and surgery. Questions or Concerns? If you have any questions or concerns, feel free to call the Pre-Admission testing department at [phone]. We want to make sure you feel safe and have an excellent experience while you are here. If you need to cancel/reschedule, please reach out to your physician's office. Do not reply to this message through Youtuo as it may not be answered promptly. Endoscopy - [facility] at [phone]; [facility]: Entrance 1D, on the main floor and enter the sliding doors on the right - [facility], [place] [address]. DOORS OPEN AT 6 AM MON-SAT ANESTHESIA - COMMON SIDE EFFECTS (if present, these should resolve within 24 hours) TIREDNESS SHIVERING DIZZINESS DRY MOUTH MILD NAUSEA/VOMITING SORE THROAT/HOARSENESS MILD PAIN OR DISCOMFORT IS NORMAL CALL THE SURGEON DAY OR NIGHT You have nausea or vomiting that doesn???t go away by the next morning. You experience severe pain not relieved by suggested medications. Thank you for letting us care for you. documented in this encounter Plan of Treatment Upcoming Encounters Date Type Department Care Team (Late st Contact Info) Description 02/01/2025 8:45 AM EDT Appointment [facility] [place] [address] 02/01/2025 9:15 AM EDT [facility]ointment [facility] [place] [address] Charlotte Alvarado MD [address] [place] [id number] 02/01/2025 9:30 AM EDT Appointment [facility] [place] [place] [address] 02/08/2025 10:30 AM EDT Appointment [facility] [place] [place] [address] 03/01/2025 10:00 AM EDT Appointment [place] [place] [address] 03/01/2025 10:30 AM EDT [facility]ointment [facility] [place] [address] Charlotte Alvarado MD [address] [place] [address] 03/01/2025 11:00 AM EDT Appointment [facility] [place] [place] [address] 03/08/2025 10:30 AM EDT Appointment [facility] [place] [place] [address] 04/02/2025 11:20 AM EDT Office Visit [facility] [address] [facility] [address] [place] [address] Melony Paula, LIME MIXER TENDER [address] [place] [address] Pending Results Name Type Priority Associated Diagnoses Date /Time FUNGUS CULTURE (NO STAIN) Microbiology Routine Essential hypertension Preop testing History of breast cancer Mediastinal adenopathy 01/15/2025 1:35 PM EDT ACID FAST BACILLI CULTURE AND SMEAR (STAIN INCLUDED) Microbiology Routine Essential hypertension Preop testing History of breast cancer Mediastinal adenopathy 01/15/2025 1:35 PM EDT AFB [id number] TO RIFAMPIN PCR-REF LAB Microbiology Routine Essential hypertension Preop testing History of breast cancer Mediastinal adenopathy 01/15/2025 1:35 PM EDT Scheduled Orders Name Type Priority Associated Diagnoses Orde r Schedule FUNGUS CULTURE (NO STAIN) Microbiology Routine Essential hypertension Preop testing History of breast cancer Mediastinal adenopathy Release Upon Ordering for 1 Occurrences starting 01/15/2025 ACID FAST BACILLI CULTURE AND SMEAR (STAIN INCLUDED) Microbiology Routine Essential hypertension Preop testing History of breast cancer Mediastinal adenopathy Release Upon Ordering for 1 Occurrences starting 01/15/2025 documented as of this encounter Goals Goal Patient Goal Type Associated Problems Recent Progress Patient-Stated? Author Breast [facility] Breast Health On track(2020 11:50 AM EDT) No Rebecca Deluca, RN Note: Patient acknowledges understanding of new diagnosis, plan of care, available resources and how to contact Nurse Navigator with any future questions or concerns. Breast [facility] No Tere Saucedo, RN Note: Patient will maintain a healthy weight. Breast [facility] Breast Health No Basia Martínez, RN Note: Patient will be compliant with monthly Self Breast Exams and is aware of to who to contact for any unusual or concerning findings. documented as of this encounter Procedures Procedure Name Priority Date/Time Associated Diagnosis Comments ENDOSCOPIC BRONCHIAL ULTRASOUND (EBUS) Routine 01/15/2025 1:44 PM EDT History of breast cancer, left breast Mediastinal adenopathy AFB [id number] TO RIFAMPIN PCR-REF LAB Routine 01/15/2025 1:35 PM EDT Essential hypertension Preop testing History of breast cancer Mediastinal adenopathy LOWER RESPIRATORY CULTURE (STAIN INCLUDED) Routine 01/15/2025 1:35 PM EDT Essential hypertension Preop testing History of breast cancer Mediastinal adenopathy NON-RAYON TESTER CYTOLOGY REQUEST Routine 01/15/2025 1:05 PM EDT Essential hypertension Preop testing History of breast cancer Mediastinal adenopathy EK EKG 12 LEAD STAT 01/15/2025 11:23 AM EDT Essential hypertension Preop testing documented in this encounter Results * ENDOSCOPIC BRONCHIAL ULTRASOUND [...] Nodes observed under convex ultrasound guidance. Onsite splitter tender was present. Recommendation Await pathology results Pre-Procedure Diagnosis / Indication Mediastinal adenopathy, History of breast cancer Post-Procedure Diagnosis None Staff Staff Role DAJA Landrum CRNA, MD Anesthesiologist Maryanne Lawler MD Performing Provider Laith Lopez RN Endoscopy Nurse Adal Galvin, ANITA Cash On Delivery Clerk Medications See Anesthesia Record. No administrations occurring [...] fine needle aspiration- ebus Aspirate Lymph Node NON-RAYON TESTER CYTOLOGY REQUEST Maryanne Lawler MD 01/15/2025 1305 2 : station 7 fine needle aspiration- ebus Aspirate Lymph Node NON-RAYON TESTER CYTOLOGY REQUEST Maryanne Lawler MD 01/15/2025 1312 3 : R10 lymph node fine needle aspiration- ebus Aspirate Lymph Node NON-RAYON TESTER CYTOLOGY REQUEST Maryanne Lawler MD 01/15/2025 1322 4 : R11 lymph node fine needle aspiration- ebus Aspirate Lymph Node NON-RAYON TESTER CYTOLOGY REQUEST Maryanne Lawler MD 01/15/2025 1329 5 : bronchus wash Wash Bronchus LOWER RESPIRATORY CULTURE (STAIN INCLUDED), FUNGUS CULTURE (NO STAIN), ACID FAST BACILLI CULTURE AND SMEAR (STAIN INCLUDED), NON-RAYON TESTER CYTOLOGY REQUEST Maryanne Lawler MD 01/15/2025 1335 Anesthesia Event Time In Patient In - Proc. Room 12:48 PM Maryanne Lawler MD ENDOSCOPY PROCEDURE ORDERABLES Final Result * (ABNORMAL) LOWER RESPIRATORY CULTURE (STAIN INCLUDED) (01/15/2025 1:35 PM EDT) Culture Positive Growth(A) 01/17/2025 1:52 PM EDT [facility] Culture Sparse growth of Haemophilus influenzae SUSCEPTIBI LITY RESULT 01/17/2025 1:52 PM EDT [facility] Comment:No further workup. Beta Lactamase Negative 01/17/2025 1:52 PM EDT [facility] Culture Sparse growth of Normal oral sukhwinder SUSCEPTIBI LITY RESULT 01/17/2025 1:52 PM EDT [facility] Stain Moderate RBCs 01/17/2025 1:52 PM EDT [facility] Stain Few WBCs 01/17/2025 1:52 PM EDT [facility] Stain No organisms seen 01/17/2025 1:52 PM EDT [facility] Wash BRONCHIAL STRUCTURE / Unknown 01/15/2025 1:35 PM EDT 01/15/2025 1:52 PM EDT Maryanne Lawler MD MICROBIOLOGY - GENERAL ORDERABL ES Final Result [facility], [facility] [address] [facility] , [place] [address] * NON-RAYON TESTER CYTOLOGY REQUEST (01/15/2025 1:05 PM EDT) CASE REPORT Non-gynecologic Cytology Case: [id number] Authorizing Provider: Maryanne Lawler MD Collected: 01/15/2025 1335 Ordering Location: [facility] Received: 01/15/2025 1551 Pathologist: Keo Vera MD Specimens: A) - Lymph Node, R4 lymph node fine needle aspiration- ebus B) - Lymph Node, station 7 fine needle aspiration- ebus C) - Lymph Node, R10 lymph node fine needle aspiration- ebus D) - Lymph Node, R11 lymph node fine needle aspiration- ebus E) - Bronchus, bronchus wash 01/16/2025 1:41 PM EDT [facility] NON-RAYON TESTER CYTOLOGY FINAL DIAGNOSIS A. Lymph node, R4, endobronchial ultrasound guided fine needle aspiration: - Negative for malignant cells. - Adequate lymph node sampling. B. Lymph node, 7, endobronchial ultrasound guided fine needle aspiration: - No lymphocytes - Mixed inflammation C. Lymph node, R10, endobronchial ultrasound guided fine needle aspiration: - Negative for malignant cells. - Adequate lymph node sampling. D. Lymph node, R11, endobronchial ultrasound guided fine needle aspiration: - No lymphocytes - Mixed inflammation E. Bronchial wash: - Negative for malignant cells. - Abundant mixed inflammation, rare benign bronchial epithelial cells, and rare benign squamous epithelial cells. - GMS stain negative highlights fungal hyphae consistent with joycelyn 01/16/2025 1:41 PM EDT [facility] at 1341 EDT EMBEDDED IMAGES 01/16/2025 1:41 PM EDT [facility] MICROSCOPIC DESCRIPTION Microscopic examination is performed and the findings corroborate the diagnosis. 01/16/2025 1:41 PM EDT [facility] Gross Description A. EBUS, R4, Rec'd 2 slides and CytoLyt. (CB) Evaluation Episode #1: Adequate / AC B. EBUS, 7, Rec'd 6 slides and CytoLyt. (CB) Evaluation Episode #1: Inadequate / AC C. EBUS, R10, Rec'd 2 slides and CytoLyt. (CB) Evaluation Episode #1: Adequate / AC D. EBUS, R11, Rec'd 4 slides and CytoLyt. (CB) Evaluation Episode #1: Inadequate / AC E. Bronchial Wash, Rec'd 30ml of shared bloody fluid. (TP, GMS) Gross description has been reviewed by screening splitter tender. 01/16/2025 1:41 PM EDT [facility] Specimen obtained by aspiration (specimen) STRUCTURE OF LYMPH NODE / Unknown 01/15/2025 1:05 PM EDT 01/15/2025 3:51 PM EDT Specimen obtained by aspiration (specimen) STRUCTURE OF LYMPH NODE / Unknown 01/15/2025 1:12 PM EDT 01/15/2025 3:51 PM EDT Specimen obtained by aspiration (specimen) STRUCTURE OF LYMPH NODE / Unknown 01/15/2025 1:22 PM EDT 01/15/2025 3:51 PM EDT Specimen obtained by aspiration (specimen) STRUCTURE OF LYMPH NODE / Unknown 01/15/2025 1:29 PM EDT 01/15/2025 3:51 PM EDT Specimen obtained by lavage (specimen) BRONCHIAL STRUCTURE / Unknown 01/15/2025 1:35 PM EDT 01/15/2025 3:51 PM EDT us Maryanne Lawler MD CYTOLOGY ORDERABLES Final Resul t [place] [id number] * EK EKG 12 LEAD (01/15/2025 11:23 AM EDT) Anatomical Region Laterality Modality Electrocardiogra phy 01/15/2025 11:3 1 AM EDT Impressions 01/15/2025 6:[address] [facility] Test Date: 2025-01-15 Pat Name: MICHELLE WILHELMDOM Department: DEPID Room: Gender: Female Iron Carrier: Devon : 1960 Requested By: RADHA SAENZ Order Number: [id number] Reading MD: Whit Ferguson DO Measurements Intervals [place] Rate: 91 P: 57 LA: 144 QRS: 48 QRSD: 71 T: 44 QT: 333 QTc: 410 Interpretive Statements SINUS RHYTHM Electronically Signed On 01-15-2025 18:08:16 EDT by Whit Ferguson DO Narrative Procedure Note Whit Ferguson DO - 01/15/[address] [facility] Test Date: 2025-01-15 Pat Name: MICHELLE NOLAN Department: DEPID Room: Gender: Female Iron Carrier: Devon : 1960 Requested By: RADHA SAENZ Order Number: [id number] Reading MD: Whit Ferguson DO Measurements Intervals [place] Rate: 91 P: 57 LA: 144 QRS: 48 QRSD: 71 T: 44 QT: 333 QTc: 410 Interpretive Statements SINUS RHYTHM Electronically Signed On 01-15-2025 18:08:16 EDT by Whit Ferguson DO us Radha Saenz MARINE STEAMFITTER IMG ECG ORDERABLES Final Resul t documented in this encounter Visit Diagnoses Diagnosis Essential hypertension- Primary Unspecified essential hypertension Preop testing Preoperative examination, unspecified History of breast cancer, left breast Personal history of malignant neoplasm of breast Mediastinal adenopathy Enlargement of lymph nodes documented in this encounter Administered Medications Inactive Administered Medications - up to 1 most recent administrations Medication Order MAR Action Action Date Dose Rate Site lactated ringers infusion Intravenous, at 50 mL/hr, PREPROCEDURE CONTINUOUS, Starting on Tue01/15/25 at 0645, Until Tue01/16/25 at 0412, To be given in SDS/Pre-op Holding Area, Pre-op (Holding/SDS Meds) IV Restarted 01/15/2025 12:47 PM EDT documented in this encounter Discontinued Medications Medication Sig Discontinue Reason Start Date End Da te dexAMETHasone (DECADRON) 4 mg Oral TabletIndications:Inva sivmerissa ductal carcinoma of breast, female, left (HCC) Take 2 tablets by mouth every morning x 3 doses, on days 2, 3, 4, 9, 10, and 11 of each cycle. DELETE-Therapy completed 11/09/2024 01/03/2025 ferrous sulfate 325 mg (65 mg iron) Oral Tablet Take 325 mg by mouth daily. Removed During Admission Medication Review 01/15/2025 senna-docusate (SENOKOT-S) 8.6-50 mg Oral Tablet Take 2 Tablets by mouth 2 times daily. Removed During Admission Medication Review 09/30/2023 01/15/2025 cyclobenzaprine (FLEXERIL) 10 mg Oral Tablet Removed During Admission Medication Review 06/21/2023 01/15/2025 documented as of this encounter Orders Medications Ordered That Shaun ht Not Have Been Administered Count Last Ordered Date First Ordered Date droPERidol (INAPSINE) injection 0.625 mg 1 01/15/2025 fentaNYL (SUBLIMAZE) injection 25 mcg 1 HYDROmorphone (DILAUDID) injection 0.5 mg 1 01/15/2025 meperidine (DEMEROL) injecti on (PF) 12.5 mg 1 01/15/2025 ondansetron (ZOFRAN) injection 4 mg 1 01/15 ondansetron (ZOFRAN-ODT) dis integrating tablet 8 mg 1 01/15/2025 oxyCODONE (ROXICODONE) immed iate release tablet 5 mg 1 01/15/2025 lactated ringers infusion 1 01/14/2025 documented in this encounter Care Teams Aquatic Scientist Relationship Specialty Start Date End Date Yony Walker MD [address] [facility] [address] [place] [address] PCP - General Family Medicine 04/07/20 Charlotte Alvarado MD [address] [facility] [place] [address] Medical Oncologist Internal Medicine-Hematology and Oncology 05/14/20 documented as of this encounter
--- OUTSIDE RECORDS SUMMARY | 2025-01-15 11:23 | XMS_ITS | Encounter Summary ---
Author Organization [place] [address] Care Team Providers Care Tapper Operator Name Role Phone Yony Walker MD Primary Care Provider [phone] Charlotte Alvarado MD Unavailable [phone]- [phone] Encounter Details Date Type Department Care Team (Latest Contact Info) Description 01/15/2025 11:23 AM EDT - 01/15/2025 11:59 PM EDT Hospital Encounter [facility] [address] [place] [id number] Radha Saenz APRN [address] [place] [address] [place] [id number] Discharge Disposition: Home or Self Care Social [...] daily. fluticasone propionate (FLONASE) 50 mcg/actuation Nasl [place], Suspension 1 [place] by Nasal route daily. ibuprofen (ADVIL;MOTRIN) 600 [...] AM EDT Appointment [place] [address] 02/01/2025 9:15 AM EDT [facility] [place] [address] Charlotte Alvarado MD [address] [place] [address] 02/01/2025 9:30 AM EDT [facility]ointment [place] [place] [address] 02/08/2025 10:30 AM EDT [facility]ment [facility] [place], [place] [id number] 03/01/2025 10:00 AM EDT Appointment [facility] [place], [place] [id number] 03/01/2025 10:30 AM EDT [facility] [place], [place] [id number] Charlotte Alvarado MD [address] [place], [place] [id number] 03/01/2025 11:00 AM EDT [facility]ment [facility] [place] [place] [address] 03/08/2025 10:30 AM EDT [place] [address] 04/02/2025 11:20 AM EDT Office Visit [facility] Pulmonology [facility] [address] [facility] [address] [place] [address] Melony Paula, MECHANICAL PIPING DESIGNER [address] [place] [address] documented as of this encounter Goals Goal [...] Procedure Name Priority Date/Time Associated Diagnosis Comments EK EKG 12 LEAD STAT 01/15/2025 11:23 AM EDT Essential hypertension Preop testing documented in this encounter Results * EK EKG 12 LEAD (01/15/2025 11:23 AM EDT) Anatomical Region Laterality Modality Electrocardiogra phy 01/15/2025 11:3 1 AM EDT Impressions 01/15/2025 6:[address] [facility] Test Date: 2025-01-15 Pat Name: MICHELLE NOLAN Department: DEPID Room: Gender: Female Distribution A Class Lineman: Devon : 1960 Requested By: RADHA SAENZ Order Number: [id number] Reading MD: Whit Ferguson DO Measurements Intervals [place] Rate: 91 P: 57 [place]: 144 QRS: 48 QRSD: 71 T: 44 QT: 333 QTc: 410 Interpretive Statements SINUS RHYTHM Electronically Signed On 01-15-2025 18:08:16 EDT by Whit Ferguson DO Narrative Procedure Note Whit Ferguson DO - 01/15/[address] [facility] Test Date: 2025-01-15 Pat Name: MICHELLE NOLAN Department: DEPID Room: Gender: Female Distribution A Class Lineman: Devon : 1960 Requested By: RADHA SAENZ Order Number: [id number] Reading MD: Whit Ferguson DO Measurements Intervals [place] Rate: 91 P: 57 MN: 144 QRS: 48 QRSD: 71 T: 44 QT: 333 QTc: 410 Interpretive Statements SINUS RHYTHM Electronically Signed On 01-15-2025 18:08:16 EDT by Whit Ferguson DO Radha Saenz METAL DRILLING MACHINE OPERATOR IMG ECG ORDERABLES Final Resul t documented in this encounter Visit Diagnoses Not on filedocumented in this encounter Care Teams Tapper Operator Relationship Specialty Start Date End Date Yony Walker MD [address] [facility] [address] [place] [address] PCP - General Family Medicine 04/07/20 Charlotte Alvarado MD [address] [facility] [address] [place], [place] [address] Medical Oncologist Internal Medicine-Hematology and Oncology 05/14/20 documented as of this encounter
--- OUTSIDE RECORDS SUMMARY | 2025-01-15 12:47 | XMS_ITS | Encounter Summary ---
Author Organization [place] [address] Care Team Providers Care Director Of Marketing Analytics Name Role Phone Yony Walker MD Primary Care Provider [phone] [phone] Charlotte Alvarado MD Unavailable [phone]- [phone] Encounter Details Date Type Department Care Team (Late st Contact Info) Description 01/15/2025 12:47 PM EDT Anesthesia Event [facility] [address] [place] [address] Blake Pride MD [address] [facility] [address] [place] [address] Radha Bazzi APRN [address] [place] [id number] Anesthesia Record Procedure Summary Procedure Name Responsible Anesthesiologist Anesthesia Start Time Anesthesia Stop Time ENDOSCOPIC BRONCHIAL ULTRASOUND (EBUS) Blake Pride MD 01/15/25 1247 01/15/25 1352 Events Date Time Event Comment 01/15/2025 1134 1247 AN Equip Check 1247 An Start 1247 An Start Data 1248 Immediate Pre Anesthetic Ass es 1250 An Induction 1253 An Intubation 1254 Anesthesia Ready 1257 Time out 1258 Incision 1339 An Emergence 1340 An Extubation 1342 an stop data 1352 An Stop 1352 Handoff I completed my SBAR handoff to the receiving nurse which has included the followin. Identification of the patient, family, or patient surrogate 2. Identification of the responsible practitioner 3. Pertinent medical history 4. Surgical procedure and reason for procedure 5. Intraoperative anesthetic management 6. All current lines, drains and respiratory support. 7. Outstanding follow up orders (X-rays, consults etc) 8. Expectations/Plans for the early post-procedure period 9. Opportunity for questions and acknowledgement of understanding from the receiving PACU/ICU team automobile assembler Meds Name Total lidocaine injection 1% 50 mg propofol (DIPRIVAN) injection 150 mg rocuronium (ZEMURON) 10 mg/mL injection 50 mg dexamethasone (DECADRON) injection 4 mg/ mL 8 mg ondansetron (ZOFRAN) injection 4 mg /2 m L 4 mg lidocaine 4 % ([id number]) laryngotrac heal solution 4 mL propofol (DIPRIVAN) infusion 10 mg/mL 19 8,560 mcg lactated ringers infusion 0 mL * Agents Name O2 N2O Air Et Sevoflurane Et Desflurane * Blood No blood administrations on file. Lines, Drains, and Airways Type Details Placement Removal Port A Cath Present; Standard; S tE Edg; Chest; Right 04/18/20 0841 by Peripheral IV 01/15/25; 1151; 22; Right; Forearm; pan estrada rn; 1; 01/15/25; 1435; Therapy completed; Catheter intact, Dressing applied, No Complications 01/15/25 1151 by Pan Art RN 01/15/25 1435 by Rayne Costello, RN Airway Device: ETT- Cuffed; Size: 8.5 mm; Placement Date: 01/15/25; Placement Time: 1253 (created via procedure documentation); Removal Date: 01/15/25; Removal Time: 1340 01/15/25 1253 by Cheryl Lagunas CRNA 01/15/25 1340 by Cheryl Lagunas CRNA documented in this encounter Social History Tobacco Use Types Packs/Day Years [...] on file documented as of this encounter Procedure Notes * Cheryl Lagunas CRNA - 01/15/2025 1:05 PM EDTAssociated Order(s): Intraop Airway Placement Intraop Airway Placement: Date/Time: 01/15/2025 12:53 PM Induction type: IV Mask size: Standard adult Pre-Oxygenation: Standard Mask ventilation: Easy mask ventilation Technique: Video laryngoscope Laryngoscope blade: Ortega Blade size: 3 Grade view: I Airway type: ETT- cuffed Topical Anesthetic/Lubricant: Lidocaine 2% jelly Intubation assist devices: Stylet 14fr Airway location: Oral Device size: 8.5mm Secured at: 21 cm Secured by: Tape Measured from: Lips Placement verified: Auscultation, End tidal CO2, Symmetric chest wall motion and Fiberoptic scope visualization Condition: Unchanged and Atraumatic Insertion attempts: 1 Title: INDUSTRIAL TRUCK MECHANIC documented in this encounter OR Notes * Anesthesia Postprocedure Evaluation - Blake Pride MD - 01/15/2025 2:29 PM EDT Post-Anesthesia Evaluation Note Patient Name: Michelle Nolan Patient Date: January 15, 2025 Post-Anesthesia Evaluation Patient Location: ENDO Post op vitals: stable Difficult airway: no Nausea controlled: yes Level of consciousness: awake, alert and oriented Post anesthesia pain: adequate analgesia Long acting local anesthetic: n/a Airway patency: patent Respiratory status: spontaneous ventilation and room air Cardiovascular status: stable Hydration status: euvolemic Temperature: Normothermia Perioperative complications: NONE Vitals Value Taken Time BP 149/81 01/15/25 14:15 Resp 16 01/15/25 14:15 SpO2 96 % 01/15/25 14:15 Temp 97.2 01/15/25 14:29 Pulse 98 01/15/25 14:15 * Anesthesia Preprocedure Evaluation - Blake Pride MD - 01/15/2025 11:29 AM EDT Pre-Anesthesia Evaluation Note Patient Name: Michelle Nolan Sex: female Patient : 1960 Age: 64 y.o. Patient Date: January 15, 2025 ENDOSCOPIC BRONCHIAL ULTRASOUND (EBUS) Anesthesia Evaluation Previous anesthesia. No history of anesthetic complications (Motion Sickness): Airway Mallampati: II Mouth: Small mouth/Arched pallate Dental - normal exam Pulmonary Comments: Allergic rhinitis Mediastinal and hilar adenopathy (+) Physical exam: Comments: Clear to auscultation Cardiovascular (+)Hypertension: Hyperlipidemia Valvular problems/murmurs (Mild TR, Trace [place]): Shortness of breath: BENOIT Physical exam: Rhythm: regular Rate: normal Neuro/Psych (+) Syncope GI/Hepatic/Renal (+)GERD/PUD: Endo/Other (+)Hypothyroidism Anemia Breast cancer (s/p lumpectomy 10/2020, Chemo/XRT) MEDICAL RECORDS CUSTODIAN Additional Pre-evaluation comments 01/11/25 CBC and CMP reviewed: H&H 11.1/33.8, Alk Phos 141 EKG DOS 04/15/20 ECHO: Normal LV size and function. LVEF 60-65%. Mild left ventricular hypertrophy. Normal right ventricular size and function. Mild tricuspid regurgitation. Trace pulmonic regurgitation. Opioids Body mass index is 24.53 kg/m??. Anesthesia Plan ASA 3 Last solid intake: The patient has not eaten within the last 8 hours. Last clear liquid intake: The patient has not had clear liquids within the last 2 hours. Anesthesia Plan: general Induction: intravenous Monitors: STD PONV Risk Score: 2. Score of 2 is Moderate Risk for PONV, at least one antiemetic indicated for prophylaxis. Informed consent Anesthetic plan and risks discussed with: patient. Chart Reviewed and patient examined documented in this encounter Miscellaneous Notes * PAT Pre Evaluation for Anesthesia - Radha Bazzi APRN - 01/14/2025 9:47 AM EDT Pre-Anesthesia Evaluation Note Patient Name: Michelle Nolan Sex: female Patient : 1960 Age: 64 y.o. Patient Date: January 14, 2025 ENDOSCOPIC BRONCHIAL ULTRASOUND (EBUS) Anesthesia Evaluation Previous anesthesia. History of anesthetic complications: Motion Sickness. Airway Dental Pulmonary Comments: Allergic rhinitis Mediastinal and hilar adenopathy (+) Cardiovascular (+)Hypertension: Hyperlipidemia Valvular problems/murmurs (Mild TR, Trace NJ): Shortness of breath: BENOIT Neuro/Psych (+) Syncope GI/Hepatic/Renal (+)GERD/PUD: Endo/Other (+)Hypothyroidism Anemia Breast cancer (s/p lumpectomy 10/2020, Chemo/XRT) MEDICAL RECORDS CUSTODIAN Additional Pre-evaluation comments 01/11/25 CBC and CMP reviewed: H&H 11.1/33.8, Alk Phos 141 EKG DOS 04/15/20 ECHO: Normal LV size and function. LVEF 60-65%. Mild left ventricular hypertrophy. Normal right ventricular size and function. Mild tricuspid regurgitation. Trace pulmonic regurgitation. Opioids Body mass index is 24.53 kg/m??. Anesthesia Plan Anesthesia Plan: general PONV Risk Score: 2. Score of 2 is Moderate Risk for PONV, at least one antiemetic indicated for prophylaxis. Chart Reviewed documented in this encounter Plan of Treatment Upcoming Encounters Date Type Department Care Team (Late st Contact Info) Description 02/01/2025 8:45 AM EDT Appointment [place] [address] 02/01/2025 9:15 AM EDT [facility]ment [facility] [place] [address] Charlotte Alvarado MD [address] [place] [address] 02/01/2025 9:30 AM EDT Appointment [facility] [place] [address] 02/08/2025 10:30 AM EDT Appointment [facility] [place] [address] 03/01/2025 10:00 AM EDT Appointment [place] [address] 03/01/2025 10:30 AM EDT [facility]ment [facility] [place] [address] Charlotte Alvarado MD 1 [place] [address] 03/01/2025 11:00 AM EDT Appointment [facility] [place], [place] [id number] 03/08/2025 10:30 AM EDT Appointment [facility] [place], [place] [phone] 04/02/2025 11:20 AM EDT Office Visit SEP Pulmonology [facility] [address] [facility] [address] [place] [phone] Melony Paula, BRIDGE MAINTAINER [address] [place] [address] documented as of this encounter Goals Goal Patient Goal Type Associated Problems Recent Progress Patient-Stated? Author [facility] Breast Health On track(2020 11:50 AM EDT) No Rebecca Deluca, RN Note: Patient acknowledges understanding of new diagnosis, plan of care, available resources and how to contact Nurse Navigator with any future questions or concerns. [facility] No Tere Saucedo, RN Note: Patient will maintain a healthy weight. [facility] Breast [facility] No Basia Martínez, RN Note: Patient will be compliant with monthly Self Breast Exams and is aware of to who to contact for any unusual or concerning findings. documented as of this encounter Procedures Procedure Name Priority Date/Time Associated Diagnosis Comments INTRAOP AIRWAY PLACEMENT Routine 01/15/2025 12:53 PM EDT documented in this encounter Results * INTRAOP AIRWAY PLACEMENT (01/15/2025 12:53 PM EDT) Narrative [facility] - 01/15/2025 12:53 PM EDT Cheryl Lagunas, INDUSTRIAL TRUCK MECHANIC 01/15/2025 1:06 PM Intraop Airway Placement: Date/Time: 01/15/2025 12:53 PM Induction type: IV Mask size: Standard adult Pre-Oxygenation: Standard Mask ventilation: Easy mask ventilation Technique: Video laryngoscope Laryngoscope blade: Ortega Blade size: 3 Grade view: I Airway type: ETT- cuffed Topical Anesthetic/Lubricant: Lidocaine 2% jelly Intubation assist devices: Stylet 14fr Airway location: Oral Device size: 8.5mm Secured at: 21 cm Secured by: Tape Measured from: Lips Placement verified: Auscultation, End tidal CO2, Symmetric chest wall motion and Fiberoptic scope visualization Condition: Unchanged and Atraumatic Insertion attempts: 1 Title: INDUSTRIAL TRUCK MECHANIC us Blake Pride MD [place] ANESTHESIA Final Result [place] [phone] documented in this encounter Visit Diagnoses Not on filedocumented in this encounter Administered Medications Inactive Administered Medications - up to 1 most recent administrations Medication Order MAR Action Action Date Dose Rate Site dexAMETHasone (DECADRON) injection Intravenous, PRN (Anesthesia), Starting on Tue01/15/25 at 1305, Until Tue01/15/25 at 1352, Anesthesia Intra-op Given 01/15/2025 1:05 PM EDT 8 mg lactated ringers infusion Intravenous, at 50 mL/hr, PREPROCEDURE CONTINUOUS, Starting on Tue01/15/25 at 0645, Until Tue01/16/25 at 0412, To be given in SDS/Pre-op Holding Area, Pre-op (Holding/SDS Meds) IV Restarted 01/15/2025 12:47 PM EDT lidocaine 1% 10 mg/mL (1 %) injection Intravenous, PRN (Anesthesia), Starting on Tue01/15/25 at 1250, Until Tue01/15/25 at 1352, Anesthesia Intra-op Given 01/15/2025 12:50 PM EDT 50 mg lidocaine HCl ([id number]) 4 % topical solution Laryngotracheal, PRN (Anesthesia), Starting on Tue01/15/25 at 1253, Until Tue01/15/25 at 1352, Anesthesia Intra-op Given 01/15/2025 12:53 PM EDT 4 mL ondansetron (ZOFRAN) injection Intravenous, PRN (Anesthesia), Starting on Tue01/15/25 at 1305, Until Tue01/15/25 at 1352, Anesthesia Intra-op Given 01/15/2025 1:05 PM EDT 4 mg propofol (DIPRIVAN) infusion 10 mg/mL Intravenous, CONTINUOUS PRN, Starting on Tue01/15/25 at 1254, Until Tue01/15/25 at 1352, Anesthesia Intra-op Rate/Dose Change 01/15/2025 1:16 PM EDT 60 mcg/kg/min 24.48 mL/hr propofoL (DIPRIVAN) injection Intravenous, PRN (Anesthesia), Starting on Tue01/15/25 at 1250, Until Tue01/15/25 at 1352, Anesthesia Intra-op Given 01/15/2025 12:50 PM EDT 150 mg rocuronium injection Intravenous, PRN (Anesthesia), Starting on Tue01/15/25 at 1250, Until Tue01/15/25 at 1352, Anesthesia Intra-op Given 01/15/2025 12:50 PM EDT 50 mg documented in this encounter Care Teams Director Of Marketing Analytics Relationship Specialty Start Date End Date Yony Walker MD [address] [facility] [address] [place] [address] PCP - General Family Medicine 04/07/20 Charlotte Alvarado MD [address] [facility] [place] [address] Medical Oncologist Internal Medicine-Hematology and Oncology 05/14/20 documented as of this encounter
--- OUTSIDE RECORDS SUMMARY | 2025-01-19 10:24 | XMS_ITS | Encounter Summary ---
Author Organization [place] [address] Care Team Providers Care Senior Care Manager Name Role Phone Yony Walker MD Primary Care Provider [phone] Charlotte Alvarado MD Unavailable [phone]- [phone] Molly Miller RN Unavailable Unavailab Natalie Sinclair RN Unavailable Unavailable Talya Marina RN Unavailable Unava ilable David Littlejohn RN Unavailable Unavail able Georges Chapman RN Unavailable Unavaila Precious Bella RN Unavailable Unavailable Jadiel Castellanos RN Unavailable Unavailab Mitzy Urena RN Unavailable UnavailManju Chaves RN Unavailable Unavailable Niecy Flynn RN Unavailable Unava ilable Magaly Kumar RN Unavailable Unavailable Doris Felder RN Unavailable Unavailable Chano Berry RN Unavailable Unavailable Irais Casey RN Unavailable Unavailable Jadiel Castellanos RN Unavailable Unavailab Marilyn Troncoso RN Unavailable Unavailable Tracy Hawk RN Unavailable Unavailable Sirisha Butterfield RN Unavailable Unavailable Marilyn Jane RN Unavailable Unavailable Yony Petit RN Unavailable Unavailable Paulina Gamble RN Unavailable Unavailable Irais Casey RN Unavailable Unavailable Shaunna Saenz RN Unavailable Unavailable Yaz Perry RN Unavailable Unavailable Marilyn Jane RN Unavailable Unavailable Natalie Valadez RN Unavailable Unavailable Ana Paula Arechiga RN Unavailable Unavailable Precious Jain RN Unavailable Unavailable Irene Cheema RN Unavailable UnavailSirisha Ortega RN Unavailable Unavailable Anna Raymundo RN Unavailable Unavailable Encounter Details Date Type Department Care Team (Late st Contact Info) Description 04/10/2020 [place] [address] Sejal Ruiz MD [address] [id number] Social History Tobacco Use Types Packs/Day Years Used Date Smoking Tobacco: Never Smokeless Tobacco: Never Alcohol Use Standard Drinks/Week Comments No 0 (1 standard drink = 0.6 oz pur e alcohol) Sexually Active Control Partners Comments Yes Comments No Sex and Gender Information Value Date Recorded Sex Assigned at Not on file Legal Sex Female 10:38 AM EST Gender Identity Not on file Sexual Orientation Not on file COVID-19 Exposure Response Date Recorded In the last month, have you been in contact with someone who was confirmed or suspected to have Coronavirus / COVID-19? No / Unsure 04/08/2020 1:59 PM EDT documented as of this encounter Plan of Treatment Upcoming Encounters Date Type Department Care Team (Late st Contact Info) Description 02/01/2025 8:45 AM EDT Appointment [facility] [place] [address] 02/01/2025 9:15 AM EDT [facility]ointment [facility] [place] [address] Charlotte Alvarado MD [address] [place] [id number] 02/01/2025 9:30 AM EDT Appointment [place] [address] 02/08/2025 10:30 AM EDT Appointment [place] [place] [address] 03/01/2025 10:00 AM EDT Appointment [facility] [place] [address] 03/01/2025 10:30 AM EDT [facility]ment [facility] [place] [address] Charlotte Alvarado MD [address] [place] [id number] 03/01/2025 11:00 AM EDT Appointment [facility] [place] [address] [place], [place] [id number] 03/08/2025 10:30 AM EDT Appointment [facility] [address] [place], [place] [id number] 04/02/2025 11:20 AM EDT Office Visit SEP Pulmonology [facility] [address] [facility] Building [address] [place] [address] Melony Paula, RESIDENTIAL INSTALLER [address] [place] [address] documented as of this encounter Goals Goal Patient Goal Type Associated Problems Recent Progress Patient-Stated? Author Breast Health Breast Health On track( 021 11:50 AM EDT) Rebecca Geiger, RN Note: Patient acknowledges understanding of new diagnosis, plan of care, available resources and how to contact Nurse Navigator with any future questions or concerns. documented as of this encounter Procedures Procedure Name Priority Date/Time Associated Diagnosis Comments NEOGENOMICS HER2 BREAST Routine 04/10/2020 11:11 AM EDT documented in this encounter Results * NEOGENOMICS HER2 BREAST (04/10/2020 11:11 AM EDT) Pathologist [facility] Result Results = Negative HER2 Breast (Result) = Negative HER2 Breast (Reference Ranges) = Based on 2018 CAP/ASCO guidelines, a case is considered POSITIVE when the HER2/CEN17 ratio is >/=2.0 with >/= 4.0 signals/cell [Group 1] and NEGATIVE when the HER2 to CEN17 ratio is <2.0 and <4.0 HER2 signals/cell [Group 5]. If HER2/CEP17 ratio >/= 2.0 with average HER2 <4.0 [Group 2], or HER2/CEN17 ratio <2.0 with >/=6.0 signals/cell [Group 3], or HER2/CEN17 <2.0 with >/=4.0 and <6.0 signals/cell [Group 4] a definitive diagnosis will be rendered on additional work-up using the HER2 IHC staining with a concomitant workup. [Groups 2 and 4] If the IHC result is 3+, the case is considered HER2 POSITIVE. If the IHC result is 0 or 1+, the case is considered HER2 NEGATIVE. If the IHC is 2+ the FISH is recounted for an additional 20 cells in the area of invasive cancer with IHC 2+ staining. If reviewing the additional count remains within the bounds of Group 2 or Group 4, then the case is considered NEGATIVE. If the review results in a different CONNER category a total of 50 additional cells will be recounted and the result is adjudicated to that final category. [Group 3] If the IHC result is 3+, the case is considered HER2 POSITIVE. If the IHC result is 0 or 1+, the case is considered HER2 NEGATIVE. If the IHC is 2+ the FISH is recounted for an additional 20 cells in the area of invasive cancer with IHC 2+ staining. If reviewing the additional count remains within the bounds of Group 3, then the case is considered POSITIVE. If the review results in a different CONNER category a total of 50 additional cells will be recounted and the result is adjudicated to that final category. HER2 Breast (Probe Set Detail) = nuc conner(ARI54n1.2,H ER2x1.3)[50] Invasive Tumor Nuclei Scored = 50 Billing Results (CPT Code: 19043) = Probe Set: HER2 Breast Scoring Method: Computer Assisted Technology CPT Code: 07002 # of Units: 1 [facility] 04/10/2020 11:1 1 AM EDT Narrative [facility] - 04/22/2020 2:22 PM EST Requesting Provider: Blayne Juarez Specimen = [id number] us Sejal Ruiz MD PATHOLOGY ORDERABLES Final Re sult [facility] [address] [id number] documented in this encounter Visit Diagnoses Not on filedocumented in this encounter Care Teams Senior Care Manager Relationship Specialty Start Date End Date Yony Walker MD [address] [facility] [address] [place] [id number] PCP - General Family Medicine 04/07/20 Charlotte Alvarado MD [address] [facility] [address] [place], [place] [address] Medical Oncologist Internal Medicine-Hematology and Oncology 05/14/20 Molly Miller, RN Registered Nurse 11/25/23 11/25/23 Natalie Valadez, RN Registered Nurse Infusion Therapy 12/02/23 12/02/23 Talya Marina, RN Registered Nurse Infusion Therapy 12/16/23 12/16/23 David Littlejohn, RN Registered Nurse Infusion Clinic 12/23/23 12/23/23 Georges Chapman, RN Registered Nurse Infusion Therapy 01/06/24 01/07/24 Precious Jain, RN Registered Nurse Infusion Therapy 01/13/24 01/13/24 Jadiel Castellanos, RN Registered Nurse Infusion Therapy 02/10/24 4 Mitzy Chavez, RN Registered Nurse Infusion Therapy 03/02/24 03/02/24 Manju Edwards, RN Registered Nurse Infusion Therapy 03/09/24 03/09/24 Niecy Flynn, RN Registered Nurse 03/23/24 03/23/24 Magaly Kumar, RN Registered Nurse Infusion Therapy 03/30/24 03/30/24 Doris Felder, RN Registered Nurse 04/20/24 04/20/24 Chano Berry, RN Registered Nurse Infusion Therapy 04/27/24 04/27/24 Irais Casey, RN Registered Nurse Infusion Therapy 05/18/24 05/18/24 Jadiel Castellanos, RN Registered Nurse Infusion Therapy 05/25/24 4 Marilyn Hernández, RN Registered Nurse 06/22/24 06/22/24 Tracy Hawk RN Registered Nurse Infusion Therapy 06/29/24 06/29/24 Sirisha Butterfield, RN Registered Nurse Infusion Therapy 07/20/24 07/20/24 Marilyn Jane RN Registered Nurse Infusion Therapy 07/27/24 07/27/24 Yony Petit, RN Registered Nurse 08/17/24 08/17/24 Paulina Gamble, RN Registered Nurse Infusion Clinic 08/24/24 08/24/24 Irais Casey, RN Registered Nurse Infusion Therapy 08/24/24 08/24/24 Shaunna Saenz, RN Registered Nurse Infusion Therapy 09/14/24 09/14/24 Yaz Perry, RN Registered Nurse 09/21/24 09/21/24 Marilyn Jane, RN Registered Nurse Infusion Clinic 10/12/24 10/12/24 Natalie Valadez, RN Registered Nurse Infusion Therapy 10/19/24 10/19/24 Ana Paula Arechiga, RN Registered Nurse Infusion Therapy 11/09/24 11/09/24 Precious Jain, RN Registered Nurse Infusion Therapy 11/16/24 11/16/24 Irene Cheema, dial printer Therapy 12/10/24 12/10/24 Sirisha Butterfield, RN Registered Nurse Infusion Therapy 01/04/25 01/04/25 Anna Raymundo, RN Registered Nurse Infusion Therapy 01/11/25 01/11/25 documented as of this encounter
--- OUTSIDE RECORDS SUMMARY | 2025-01-19 10:24 | XMS_ITS | Encounter Summary ---
Author Organization [place] [address] Care Team Providers Care Shear Grinder Operator Helper Name Role Phone Yony Walker MD Primary Care Provider [phone] Charlotte Alvarado MD Unavailable [phone]- [phone] Molly Miller RN Unavailable Unavailab Natalie Sinclair [...] Info) Description 04/10/2020 Orders [place] [address] Sejal Ruiz MD [address] [id number] Social History Tobacco Use Types Packs/Day Years [...] AM EDT Appointment [place] [address] 02/01/2025 9:15 AM EDT Appointment [facility] [place] [address] Charlotte Alvarado MD [address] [place] [address] 02/01/2025 9:30 AM EDT Appointment [place] [address] 02/08/2025 10:30 AM EDT Appointment [place] [address] 03/01/2025 10:00 AM EDT Appointment [place] [address] 03/01/2025 10:30 AM EDT Appointment [facility] [place] [address] Charlotte Alvarado MD [address] [place] [id number] 03/01/2025 11:00 AM EDT Appointment [facility] [place] [address] [place], [place] [address] 03/08/2025 10:30 AM EDT Appointment [facility] [place], [place] [id number] 04/02/2025 11:20 AM EDT Office Visit SEP Pulmonology [facility] [address] [facility] Building [address] [place] [address] Melony Paula, PULP MAKER [address] [place] [address] documented as of this encounter Goals Goal [...] Name Priority Date/Time Associated Diagnosis Comments NEOGENOMICS BREAST PANEL (3 STAIN) Routine 04/10/2020 11:11 AM EDT documented in this encounter Results * NEOGENOMICS BREAST PANEL (3 STAIN) (04/10/2020 11:11 AM EDT) Pathologist [facility] Result H&E (Comments) = Metastatic ductal carcinoma ER (Result) = NEGATIVE ER (Tumor Stained) = 0% ER (Intensity) = 0 ER (Kimani Score) = 0 ER (Internal Control) = Absent PgR (Result) = NEGATIVE PgR (Tumor Stained) = 0.0% PgR (Intensity) = 0 PgR (Kimani Score) = 0 PgR (Internal Control) = Absent HER2 Breast (Result) = NEGATIVE HER2 Breast (Score) = 0 HER2 Breast (Percentage of Cells with Uniform Intense Complete Membrane Staining) = 0% ER (Reference Ranges) = Positive: >10% Low Positive: 1-10% Negative: <1% PgR (Reference Ranges) = Positive: >/=1% Negative: <1% HER2 Breast (Reference Ranges) = Positive: 3+ Equivocal: 2+ Negative: 1+ Negative: 0 Neg Control (Control Statement) = The digitized slide(s) was/were adequate for quantitative image analysis. All controls were reviewed and showed appropriate positive and negative immunoreactivity. Neg Control (Image Analysis Statement) = Whole slide image capture was performed with the Aperio ScanScope and quantitative computer-assisted image analysis using [employer] software. ER (Intended Use) = ER belongs to a superfamily of nuclear hormone receptors and is expressed in about 85% of invasive breast cancers. There are two known isoforms of estrogen receptor; ERa and ER . It is a weak prognostic factor but a strong predictive factor for response to endocrine therapies, both in adjuvant and metastatic settings. The primary indication to assess ER in breast cancer is to predict response to hormonal therapies such as tamoxifen, other selective estrogen receptor modulators (SERMs) and aromatase inhibitors. The College of [place] Pathologists (CAP) and [place] Society of Clinical Oncology (ASCO) have recommended that ER should be measured in all primary breast cancers using validated biochemical or immunohistochemical methods. ER has also recently been shown to predict for benefit from tamoxifen in patients with ductal carcinoma in situ (DCIS). Scoring/interpretation : ER staining is scored in our laboratory as the percentage of positive staining tumor nuclei on the examined slide. We use a cut-off level of 1-10% for low positive and >10% for positive as per 2020 CAP/ASCO guidelines. Analyzed sections should be from specimens fixed in formalin for a minimum of 6 to 8 hours and no more than 72 hours in accordance with CAP/ASCO published guidelines. An optional Kimani Score may be provided which can be used to evaluate ER (Kimani ZAYAS, Morris DEMARCO, Garrison M, and Cayden GM. Prognostic and predictive factors in breast cancer by immunohistochemical analysis. Mod Pathol 11: 155-168, 1997). The performance characteristics of these assays have not been validated on decalcified specimens. Results should be interpreted with caution given the likelihood of false negativity on decalcified specimens. Repeat testing on a different block or resection of specimen should be considered for the following scenarios: in the instance where estrogen receptor result is negative and progesterone receptor result is positive; estrogen and progesterone receptor results are negative or estrogen receptor is low positive (1-10%) in breast specimen, in the absence of internal controls; weak staining or staining of few cells in a small sample (<100 tumor cells), or when ER/DE results are negative in tumor subtypes that are typically positive, such as invasive tubular, lobular, mucinous and low grade invasive breast carcinomas. ER (Methodology) = Leica clone [id number] was used to detect Estrogen Receptor in formalin-fixed paraffin-embedded tissue sections. A polymer-technology based system was used for detection. PgR (Methodology) = Dako clone PgR [id number] was used to detect Progesterone Receptor in formalin-fixed paraffin-embedded tissue sections. A polymer-technology based system was used for detection. PgR (Intended Use) = DE belongs to a superfamily of nuclear hormone receptors. ER induces DE expression, and therefore DE status serves as an indicator of an intact ER pathway. There are two known isoforms of DE; PRa and DE . The current assays in clinical breast cancer measure both isoforms. DE is expressed in about 60-70% of invasive breast cancers. It is a weak prognostic factor by itself but a modest predictive factor that adds to the predictive value of ER for response to endocrine therapies, both in adjuvant and metastatic settings. The primary indication to assess DE in breast cancer is to predict response to hormonal therapies, such as tamoxifen, other selective estrogen receptor modulators (SERMs) and aromatase inhibitors. The College of [place] Pathologists (CAP) and [place] Society of Clinical Oncology (ASCO) have recommended that DE should be measured in all primary breast cancers using validated biochemical or immunohistochemical methods. Scoring/interpretation : DE immunostaining is scored in our laboratory as the percentage of positive staining tumor nuclei on the examined slide. We use a cut-off level of 1% in our laboratory based on comparison of our results to that of a clinically validated DE assay, as determined by two large clinical studies. Analyzed sections should be from specimens fixed in formalin for a minimum of 6 to 8 hours and no more than 72 hours in accordance with CAP/ASCO published guidelines. An optional Kimani Score may be provided which can be used to evaluate DE stains (Kimani ZAYAS, Morris DEMARCO, Garrison M, and Cayden MOCTEZUMA. Prognostic and predictive factors in breast cancer by immunohistochemical analysis. Mod Pathol 11: 155-168, 1997). The performance characteristics of these assays have not been validated on decalcified specimens. Results should be interpreted with caution given the likelihood of false negativity on decalcified specimens. HER2 Breast (Intended Use) = HER2, a member of the epidermal growth factor receptor family, is a transmembrane protein with tyrosine kinase activity. Gene amplification and protein overexpression of HER2 have been found in a variety of tumors, including breast carcinomas. The expected overexpression rate varies based on the grade and type of breast cancer. Patients who are positive for HER2 overexpression (score 3+) are considered eligible for HER2-targeted therapies. Patients whose tumors have a HER2 immunohistochemistry score of 2+ and have HER2 amplification by CONNER may also benefit from HER2-targeted therapies. Correlation with HER2 FISH/CONNER findings is recommended for specimens with equivocal (2+) results. The performance characteristics of this assay have not been validated on decalcified specimens. Results should be interpreted with caution given the likelihood of false negativity on decalcified specimens. HER2 Breast (Methodology) = HER2 staining was performed utilizing the FDA approved Ak?Lex Pathway anti-HER-2/alexsandra antibody (clone [id number]) staining procedure of FFPE specimens using the Ak?Lex Benchmark Ultra. However, instead of using the indicated rabbit polyclonal negative reagent control stated in the Instruction for Use, a rabbit monoclonal negative reagent control was used to detect nonspecific staining. Although this minor reagent control substitution is inconsistent with the FDA approval for [place] Pathway HER2, the test remains consistent with applicable CAP and CLIA LDT guidelines. Scoring is performed using the 2018 ASCO/CAP HER2 breast guidelines (1). Known artifacts such as edge artifact, tissue retraction and tissue crush may give the false impression of over expression. Care should be taken to avoid assessing these areas, especially in needle core biopsies which generally harbor all of these artifacts. Only membrane staining should be assessed in the invasive component of the specimen. The 2018 ASCO/CAP guideline recommendations state that a new HER2 test may be ordered on the excision specimen if the initial HER2 test result in a core needle biopsy specimen of a primary breast cancer is negative and any of the following is observed: the tumor is grade 3, the amount of invasive tumor on the core is small, the resection specimen contains high-grade carcinoma that is morphologically distinct from that in the core, the core biopsy result is equivocal for HER2 after testing by both CONNER and IHC, or there is doubt about the specimen handling of the core biopsy (long ischemic time, short time in fixative, different fixative) or the test is suspected by the pathologist to be negative on the basis of testing error. Reference: 1. Al BARBOSA, Jl LEBLANC, Karely KH, et al. Human Epidermal Growth Factor Receptor 2 Testing in Breast Cancer: [place] Society of Clinical Oncology/College of [place] Pathologists Clinical Practice Guideline Focused Update. Arch Pathol Lab Med. 2018;142(11):0202-3803 . [facility] 04/10/2020 11:1 1 AM EDT Narrative [facility] - 04/14/2020 3:23 PM EDT Requesting Provider: Blayne Juarez Specimen = [id number] us Sejal Ruiz MD PATHOLOGY ORDERABLES Final Re sult [facility] [address] [place], [place] [id number] documented in this encounter Visit Diagnoses Not on filedocumented in this encounter Care Teams Shear Grinder Operator Helper Relationship Specialty Start Date End Date Yony Walker MD [address] [facility] [address] [place] [address] PCP - General Family Medicine 04/07/20 Charlotte Alvarado MD [address] [place] [address] Medical Oncologist Internal Medicine-Hematology and Oncology 05/14/20 Molly Miller, RN Registered Nurse 11/25/23 11/25/23 Natalie Valadez, ANITA Registered Nurse Infusion Therapy 12/02/23 12/02/23 Talya Marina, RN Registered Nurse Infusion Therapy 12/16/23 12/16/23 David Littlejohn, ANITA Registered Nurse Infusion Clinic 12/23/23 12/23/23 Georges Chapman, ANITA Registered Nurse Infusion Therapy 01/06/24 01/07/24 Precious Jain, ANITA Registered Nurse Infusion Therapy 01/13/24 01/13/24 Jadiel Castellanos RN Registered Nurse Infusion Therapy 02/10/24 4 [...] Registered Nurse Infusion Therapy 05/18/24 05/18/24 Jadiel Castellanos RN Registered Nurse Infusion Therapy 05/25/24 Marilyn Farrell, RN Registered Nurse 06/22/24 06/22/24 Tracy Hawk, RN Registered Nurse Infusion Therapy 06/29/24 06/29/24 Sirisha Butterfield, RN Registered Nurse Infusion Therapy 07/20/24 07/20/24 Marilyn Jane, RN Registered Nurse Infusion Therapy 07/27/24 07/27/24 [...] Nurse Infusion Therapy 11/16/24 11/16/24 Irene Cheema, inventory control coordinator Therapy 12/10/24 12/10/24 Sirisha Butterfield, RN Registered Nurse Infusion Therapy 01/04/25 01/04/25 Anna Raymundo, RN Registered Nurse Infusion Therapy 01/11/25 01/11/25 documented as of this encounter
--- OUTSIDE RECORDS SUMMARY | 2025-01-19 10:24 | XMS_ITS | Encounter Summary ---
Author Organization [place] [address] Care Team Providers Care Rod Placer Name Role Phone Yony Walker MD Primary Care Provider +1 -[phone] Charlotte Alvarado MD Unavailable +1- [phone] Molly Miller RN Unavailable Unavailab Natalie Sinclair [...] Care Team (Late st Contact Info) Description 10/24/2020 Orders Only [facility] One [facility] [place] [address] Homa Kilgore MD 1 [facility] [place] [id number] Social History Tobacco Use Types Packs/Day Years [...] have Coronavirus / COVID-19? No / Unsure 10/24/2020 9:50 AM EDT documented as of this encounter Plan of Treatment Upcoming Encounters Date Type Department Care Team (Late st Contact Info) Description 02/01/2025 8:45 AM EDT Appointment [place] [address] 02/01/2025 9:15 AM EDT [facility]ointment [facility] [place] [address] Charlotte Alvarado MD 1 [place] [address] 02/01/2025 9:30 AM EDT Appointment [place] [address] 02/08/2025 10:30 AM EDT Appointment [place] [address] 03/01/2025 10:00 AM EDT Appointment [place] [address] 03/01/2025 10:30 AM EDT Appointment [facility] [place] [address] Charlotte Alvarado MD 1 [place] [address] 03/01/2025 11:00 AM EDT Appointment [facility] [place] [address] 03/08/2025 10:30 AM EDT [facility] [place] [place] [id number] 04/02/2025 11:20 AM EDT Office Visit SEP Pulmonology [facility] [address] [facility] Building [address] [place] [address] Melony Paula, STUDENT AMBASSADOR [address] [place] [address] documented as of this encounter Goals Goal [...] Comments NEOGENOMICS BREAST PANEL (3 STAIN) Routine 10/24/2020 12:10 PM EDT documented in this encounter Results * NEOGENOMICS BREAST PANEL (3 STAIN) (10/24/2020 12:10 PM EDT) Pathologist [facility] Result ER (Result) = NEGATIVE ER (Tumor Stained) = 0% ER (Intensity) = 0 ER (Kimani Score) = 0 PgR (Result) = NEGATIVE PgR (Tumor Stained) = 0.0% PgR (Intensity) = 0 PgR (Kimani Score) = 0 HER2 Breast (Result) = NEGATIVE HER2 Breast [...] ScanScope and quantitative computer-assisted image analysis using Sian's Plan software. PgR (Intended Use) = PgR belongs to a superfamily of nuclear hormone receptors. ER induces PgR expression, and therefore PgR status serves as an indicator of an intact ER pathway. There are two known isoforms of PgR: PRa and UT . The current assays in clinical breast cancer measure both isoforms. PgR is expressed in about 60-70% of invasive breast cancers. The College of [place] Pathologists (CAP) and [place] Society of Clinical Oncology (ASCO) have recommended that PgR should be measured in all primary invasive breast cancers using validated biochemical or immunohistochemical methods; testing of PgR is optional for newly diagnosed ductal carcinoma in situ. PgR levels may help to stratify outcomes in ER-positive breast cancer patients, with data supporting that cases with lower or negative PgR expression may have a worse prognosis. Per CAP guidelines, although controversial as a result category, confirmed ER-negative/PgR-positi ve samples may represent a rare biologic phenotype that may be offered endocrine therapies, although due to the rarity of this result group, there are limited data to support this. Scoring/interpretation : PgR immunostaining is scored in our laboratory as the percentage of positive staining tumor nuclei on the examined slide. We use a cut-off level of 1% in our laboratory based on comparison of our results to that of a clinically validated PgR assay, as determined by two large clinical studies. Analyzed sections should be from specimens fixed in formalin for a minimum of 6 to 8 hours and no more than 72 hours in accordance with CAP/ASCO published guidelines. An optional Kimani Score may be provided which can be used to evaluate PgR stains (Kimani DC, Morris DEMARCO, Garrison M, and Cayden GM. Prognostic and predictive factors in breast cancer by immunohistochemical analysis. Mod Pathol 11: 155-168, 1997). The performance characteristics of these assays have not been validated on decalcified specimens. Results should be interpreted with caution given the likelihood of false negativity on decalcified specimens. PgR (Methodology) = Dako clone PgR [id number] was used to detect Progesterone Receptor in formalin-fixed paraffin-embedded tissue sections. A polymer-technology based system was used for detection. HER2 Breast (Intended Use) = HER2, a [...] staining was performed utilizing the FDA approved Maltby Pathway anti-HER-2/alexsandra antibody (clone [id number]) staining procedure of FFPE specimens using the Atrenta Benchmark Ultra. However, instead of using the indicated rabbit polyclonal negative reagent control stated in the Instruction for Use, a rabbit monoclonal negative reagent control was used to detect nonspecific staining. Although this minor reagent control substitution is inconsistent with the FDA approval for Maltby Pathway HER2, the test remains consistent with [...] testing error. Reference: 1. Al BARBOSA, Jl FERGUSONH, Karely KH, et al. Human Epidermal Growth Factor Receptor 2 Testing in Breast Cancer: [place] Society of Clinical Oncology/College of [place] Pathologists Clinical Practice Guideline Focused Update. Arch Pathol Lab Med. 2018;142(11):7731-2939 . ER (Intended Use) = ER belongs to [...] (SERMs) and aromatase inhibitors. The College of [place] Pathologists (CAP) and [place] Society of Clinical Oncology (ASCO) have recommended [...] can be used to evaluate ER (Kimani DC, Morris JM, Garrison M, and Cayden GM. Prognostic and predictive factors in breast cancer by immunohistochemical analysis. Mod Pathol 11: 155-168, 1998). The performance characteristics of these assays have [...] small sample (<100 tumor cells), or when ER/UT results are negative in tumor subtypes that are typically positive, such as invasive tubular, lobular, mucinous and low grade invasive breast carcinomas. ER belongs to a superfamily of nuclear [...] (SERMs) and aromatase inhibitors. The College of [place] Pathologists (CAP) and [place] Society of Clinical Oncology (ASCO) have recommended [...] can be used to evaluate ER (Kimani DC, Morris JM, Garrison M, and Cayden GM. Prognostic and predictive factors in breast cancer by immunohistochemical analysis. Mod Pathol 11: 155-168, 1998). The performance characteristics of these assays have [...] small sample (<100 tumor cells), or when ER/UT results are negative in tumor subtypes that are typically positive, such as invasive tubular, lobular, mucinous and low grade invasive breast carcinomas. ER belongs to a superfamily of nuclear [...] (SERMs) and aromatase inhibitors. The College of [place] Pathologists (CAP) and [place] Society of Clinical Oncology (ASCO) have recommended [...] can be used to evaluate ER (Kimani DC, Morris JM, Garrison M, and Cayden GM. Prognostic and predictive factors in breast cancer by immunohistochemical analysis. Mod Pathol 11: 155-168, 1998). The performance characteristics of these assays have [...] small sample (<100 tumor cells), or when ER/UT results are negative in tumor subtypes that are typically positive, such as invasive tubular, lobular, mucinous and low grade invasive breast carcinomas. ER (Methodology) = Leica clone [id number] was used to detect Estrogen Receptor in formalin-fixed paraffin-embedded tissue sections. A polymer-technology based system was used for detection. Leica clone [id number] was used to detect Estrogen Receptor in formalin-fixed paraffin-embedded tissue sections. A polymer-technology based system was used for detection. Leica clone [id number] was used to detect Estrogen Receptor in formalin-fixed paraffin-embedded tissue sections. A polymer-technology based system was used for detection. [facility] 10/24/2020 12:1 0 PM EDT Narrative [facility] - 11/13/2020 9:27 AM EDT Requesting Provider: Blayne Juarez Specimen = [id number] us Homa Kilgore MD PATHOLOGY ORDERABLES Final Result [facility] 1 [place] [address] documented in this encounter Visit Diagnoses Not on filedocumented in this encounter Care Teams Rod Placer Relationship Specialty Start Date End Date Yony Walker MD [address] [facility] [address] [place] [address] PCP - General Family Medicine 04/07/20 Charlotte Alvarado MD 1 [place] [address] Medical Oncologist Internal Medicine-Hematology and [...] Castellanos RN Registered Nurse Infusion Therapy 02/10/24 Mitzy Hood, RN Registered Nurse Infusion Therapy 03/02/24 03/02/24 Manju Edwards, ANITA Registered Nurse Infusion Therapy 03/09/24 03/09/24 Niecy Flynn, RN Registered Nurse 03/23/24 03/23/24 Magaly Kumar, RN Registered Nurse Infusion Therapy 03/30/24 03/30/24 Doris Felder, RN Registered Nurse 04/20/24 04/20/24 Chano Berry, RN Registered Nurse Infusion Therapy 04/27/24 04/27/24 Irais Casey, RN Registered Nurse Infusion Therapy 05/18/24 05/18/24 Jadiel Castellanos RN Registered Nurse Infusion Therapy 05/25/24 Marilyn Farrell, RN Registered Nurse 06/22/24 06/22/24 Tracy Hawk RN Registered Nurse Infusion Therapy 06/29/24 06/29/24 Sirisha Butterfield, RN Registered Nurse Infusion Therapy 07/20/24 07/20/24 Marilyn Jane RN Registered Nurse Infusion Therapy 07/27/24 07/27/24 Yony Petit, RN Registered Nurse 08/17/24 08/17/24 Paulina Gamble RN Registered Nurse Infusion Clinic 08/24/24 08/24/24 [...] Nurse Infusion Therapy 11/16/24 11/16/24 Irene Cheema, print production associate Therapy 12/10/24 12/10/24 Sirisha Butterfield, RN Registered Nurse Infusion Therapy 01/04/25 01/04/25 Anna Raymundo, RN Registered Nurse Infusion Therapy 01/11/25 01/11/25 documented as of this encounter
--- OUTSIDE RECORDS SUMMARY | 2025-01-19 10:25 | XMS_ITS | Encounter Summary ---
Author Organization [place] [address] Care Team Providers Care Restaurant Crew Member Name Role Phone Yony Walker MD Primary Care Provider [phone] [phone] Charlotte Alvarado MD Unavailable [phone]- [phone] Reason for Visit * Reason Onset Date Comments Other 01/14/2025 Encounter Details Date Type Department Care Team (Late st Contact Info) Description 01/14/2025 Telephone SEP Pulmonology [facility] [address] [facility] Building [address] [place] [address] Maryanne Lawler MD [address] [place] [address] Other Social History Tobacco Use Types Packs/Day Years [...] on file documented as of this encounter Miscellaneous Notes * Telephone Encounter - Edith De Guzman MA - 01/14/2025 9:47 AM EDT Called pt, informed to still come tomorrow she has no other symptoms Also informed her md will be made aware * Telephone Encounter - Cammie Ibrahim - 01/14/2025 9:33 AM EDT Patient calling Has just a cough No fever Nothing else Caller asking If still ok to do the endo ebus tomorrow ? documented in this encounter Plan of Treatment Upcoming Encounters Date Type Department Care Team (Late st Contact Info) Description 02/01/2025 8:45 AM EDT Appointment [place] [address] 02/01/2025 9:15 AM EDT Appointment [facility] [place] [address] Charlotte Alvarado MD [address] [place] [address] 02/01/2025 9:30 AM EDT Appointment [facility] [place] [address] 02/08/2025 10:30 AM EDT Appointment [facility] [place] [address] 03/01/2025 10:00 AM EDT Appointment [place] [address] 03/01/2025 10:30 AM EDT Appointment [facility] [place] [address] Charlotte Alvarado MD [address] [place] [address] 03/01/2025 11:00 AM EDT Appointment [facility] [place] [address] 03/08/2025 10:30 AM EDT Appointment [facility] [place] [address] 04/02/2025 11:20 AM EDT Office Visit SEP Pulmonology [facility] [address] [place] [address] Melony Paula, JOB SPOTTER [address] [place] [address] documented as of this encounter Goals Goal Patient Goal Type Associated Problems Recent Progress Patient-Stated? Author Breast Health Breast Health On track(2020 11:50 AM EDT) Rebecca Geiger, RN Note: Patient acknowledges understanding of new diagnosis, plan of care, available resources and how to contact Nurse Navigator with any future questions or concerns. Breast [facility] Breast Health No Tere Saucedo, RN Note: Patient will maintain a healthy weight. Breast [facility] Breast Health No Basia Martínez, RN Note: Patient will be compliant with monthly Self Breast Exams and is aware of to who to contact for any unusual or concerning findings. documented as of this encounter Visit Diagnoses Not on filedocumented in this encounter Care Teams Restaurant Crew Member Relationship Specialty Start Date End Date Yony Walker MD [address] [facility] [address] [place] [address] PCP - General Family Medicine 04/07/20 Charlotte Alvarado MD [address] [place] [address] [place] [address] Medical Oncologist Internal Medicine-Hematology and Oncology 05/14/20 documented as of this encounter
--- OUTSIDE RECORDS SUMMARY | 2025-01-19 10:25 | XMS_ITS | Encounter Summary ---
Author [place] [address] Care Team Providers Care Manager Gaming Name Role Phone Yony Walker MD Primary Care Provider [phone] -[phone] Charlotte Alvarado MD Unavailable +1- [phone] Molly Miller RN Unavailable Unavailab Natalie Sinclair [...] Care Team (Late st Contact Info) Description 09/06/2023 Orders Only [facility] [place] [id number] Romy Baugh MD [address] [place] [phone] Social History Tobacco Use Types Packs/Day Years Used Date Smoking Tobacco: Never Smokeless Tobacco: Never Alcohol Use Standard Drinks/Week Comments No 0 (1 standard drink = 0.6 oz pur e alcohol) PHQ-2 Answer Date Recorded PHQ-2 Total Score 0 03/29/2023 Sexually Active Control Partners Comments Yes Post-menopausal Male Comments No Sex and Gender Information Value Date Recorded Sex Assigned at Not on file Legal Sex Female 10:38 AM EST Gender Identity Not on file Sexual Orientation Not on file documented as of this encounter Plan of Treatment Upcoming Encounters Date Type Department Care Team (Late st Contact Info) Description 02/01/2025 8:45 AM EDT Appointment [place] [address] 02/01/2025 9:15 AM EDT Appointment [facility] [place] [address] Charlotte Alvarado MD [address] [place] [address] 02/01/2025 9:30 AM EDT Appointment [facility] [place] [address] 02/08/2025 10:30 AM EDT Appointment [facility] [place] [address] 03/01/2025 10:00 AM EDT Appointment [place] [address] 03/01/2025 10:30 AM EDT Appointment [facility] [place] [address] Charlotte Alvarado MD [address] [place] [address] 03/01/2025 11:00 AM EDT Appointment [facility] [place] [place] [address] 03/08/2025 10:30 AM EDT Appointment [facility] [place] [address] 04/02/2025 11:20 AM EDT Office Visit SEP Pulmonology [facility] [address] [facility] Building [address] [place] [address] Melony Paula, AB[employer]IGINAL HOME SCHOOL LIAISON OFFICER [address] [place] [address] documented as of this encounter Goals Goal Patient Goal Type Associated Problems Recent Progress Patient-Stated? Author [facility] Health On track(2020 11:50 AM EDT) Rebecca Geiger, RN Note: Patient acknowledges understanding of new diagnosis, plan of care, available resources and how to contact Nurse Navigator with any future questions or concerns. [facility] [place] [facility] Tere Dillard, RN Note: Patient will maintain a healthy weight. [facility] Basia Perez, RN Note: Patient will be compliant with monthly Self Breast Exams and is aware of to who to contact for any unusual or concerning findings. documented as of this encounter Procedures Procedure Name Priority Date/Time Associated Diagnosis Comments NEOGENOMICS BREAST PANEL (3 STAIN) Routine 09/06/2023 1:00 PM EDT documented in this encounter Results * NEOGENOMICS BREAST PANEL (3 STAIN) (09/06/2023 1:00 PM EDT) 09/06/2023 1:00 PM EDT Narrative [facility] - 09/12/2023 10:02 AM EDT Requesting Provider: PATTI DORA Juarez Specimen = [id number] Romy Baugh MD PATHOLOGY ORDERABLES Final Resul t H LAB 1 [facility] [place] [id number] documented in this encounter Visit Diagnoses Not on filedocumented in this encounter Care Teams Manager Gaming Relationship Specialty Start Date End Date Yony Walker MD [address] [facility] [address] [place] [address] PCP - General Family Medicine 04/07/20 Charlotte Alvarado MD 1 [facility] [place] [id number] Medical Oncologist Internal Medicine-Hematology and Oncology 05/14/20 [...] RN Registered Nurse Infusion Therapy 02/10/24 Mitzy Hodo, RN Registered Nurse Infusion Therapy 03/02/24 03/02/24 [...] Castellanos RN Registered Nurse Infusion Therapy 05/25/24 4 Marilyn Hernández, RN Registered Nurse 06/22/24 06/22/24 Tracy Hawk, [...] Perry, RN Registered Nurse 09/21/24 09/21/24 Marilyn Jnae, RN Registered Nurse Infusion Clinic 10/12/24 10/12/24 Naatlie Valadez, RN Registered Nurse Infusion Therapy 10/19/24 10/19/24 Ana Paula Arechiga, RN Registered Nurse Infusion Therapy 11/09/24 11/09/24 Precious Jain, RN Registered Nurse Infusion Therapy 11/16/24 11/16/24 Irene Cheema, biomedical instrument technician Therapy 12/10/24 12/10/24 Sirisha Butterfield, RN Registered Nurse Infusion Therapy 01/04/25 01/04/25 Anna Raymundo, RN Registered Nurse Infusion Therapy 01/11/25 01/11/25 documented as of this encounter
--- OUTSIDE RECORDS SUMMARY | 2025-01-19 10:25 | XMS_ITS | Encounter Summary ---
Author Organization [place] [address] Care Team Providers Care Hand Zipper Trimmer Name Role Phone Yony Walker MD Primary Care Provider [phone] [phone] Charlotte Alvarado MD Unavailable [phone]- [phone] Molly Miller RN Unavailable Unavailab Natalie Sinclair RN Unavailable Unavailable Talya Marina RN Unavailable Unava ilable David Littlejohn RN Unavailable Unavail able Georges Chapman RN Unavailable Unavaila Precious Bella RN Unavailable Unavailable Jadiel Castellanos RN Unavailable Unavailab Mitzy Urena RN Unavailable UnavailManju Chaves RN Unavailable Unavailable Niecy Flynn RN Unavailable Unava ilable Magaly Kumar RN Unavailable Unavailable Doris eFlder RN Unavailable Unavailable Chano Berry RN Unavailable Unavailable Irais Casey RN Unavailable Unavailable Jadiel Castellanos RN Unavailable Unavailab Marilyn Troncoso RN Unavailable Unavailable Tracy Hakw RN Unavailable Unavailable Sirisha Butterfield RN Unavailable [...] Info) Description 09/06/2023 Orders Only [facility] [place] [id number] Romy Baugh MD [address] [place] [phone] Social History Tobacco Use Types Packs/Day Years [...] AM EDT Appointment [place] [address] 02/01/2025 9:15 AM EDT Appointment [facility] [place] [address] Charlotte Alvarado MD [address] [place] [address] 02/01/2025 9:30 AM EDT Appointment [facility] [place] [address] 02/08/2025 10:30 AM EDT Appointment [facility] [place] [address] 03/01/2025 10:00 AM EDT Appointment [place] [address] 03/01/2025 10:30 AM EDT Appointment [facility] [place] [address] Charlotte Alvarado MD [address] [place] [address] 03/01/2025 11:00 AM EDT Appointment [facility] [place] [place] [address] 03/08/2025 10:30 AM EDT Appointment [facility] [place] [address] 04/02/2025 11:20 AM EDT Office Visit SEP Pulmonology [facility] [address] [facility] Building [address] [place] [address] Melony Paula, ARBOREAL SCIENTIST [address] [place] [address] documented as of this encounter Goals Goal Patient Goal Type Associated Problems Recent Progress Patient-Stated? Author [facility] On track(2020 11:50 AM EDT) Rebecca Geiger, RN Note: Patient acknowledges understanding of new diagnosis, plan of care, available resources and how to contact Nurse Navigator with any future questions or concerns. [facility] Tere Dillard, RN Note: Patient will maintain a healthy weight. [facility] Basia Perez, RN Note: Patient will be compliant with monthly Self Breast Exams and is aware of to who to contact for any unusual or concerning findings. documented as of this encounter Procedures Procedure Name Priority Date/Time Associated Diagnosis Comments NEOGENOMICS HER2 BREAST Routine 09/06/2023 1:00 PM EDT documented in this encounter Results * NEOGENOMICS HER2 BREAST (09/06/2023 1:00 PM EDT) 09/06/2023 1:00 PM EDT Narrative [facility] - 09/16/2023 2:12 PM EDT Requesting Provider: PATTI Juarez Specimen = [id number] Romy Baugh MD PATHOLOGY ORDERABLES Final Resul t [facility] 1 [facility] [place], [place] [id number] documented in this encounter Visit Diagnoses Not on filedocumented in this encounter Care Teams Hand Zipper Trimmer Relationship Specialty Start Date End Date Yony Walker MD [address] [facility] [address] [place] [address] PCP - General Family Medicine 04/07/20 Charlotte Alvarado MD 1 [facility] [place] [address] Medical Oncologist Internal Medicine-Hematology and Oncology [...] Nurse Infusion Therapy 10/19/24 10/19/24 Ana Paula Arechgia, RN Registered Nurse Infusion Therapy 11/09/24 11/09/24 Precious Jain, RN Registered Nurse Infusion Therapy 11/16/24 11/16/24 Irene Cheema, customer complaint clerk Therapy 12/10/24 12/10/24 Sirisha Butterfield, RN Registered Nurse Infusion Therapy 01/04/25 01/04/25 Anna Raymundo, RN Registered Nurse Infusion Therapy 01/11/25 01/11/25 documented as of this encounter
--- OUTSIDE RECORDS SUMMARY | 2025-01-19 10:25 | XMS_ITS | Encounter Summary ---
Author Organization [place] [address] Care Team Providers Care Booster Pump Oiler Name Role Phone Yony Walker MD Primary Care Provider [phone] Charlotte Alvarado MD Unavailable [phone]- [phone] Natalie Valadez RN Unavailable Unavailable Ana Paula Arechiga RN Unavailable Unavailable Precious Jain RN Unavailable Unavailable Irene Cheema RN Unavailable UnavailSirisha Ortega RN Unavailable Unavailable Anna Raymundo RN Unavailable Unavailable Encounter Details Date Type Department Care Team (Late st Contact Info) Description 10/17/2024 Orders Only [facility] [address] [place] [id number] Denisa Dueñas PT Social History Tobacco Use Types Packs/Day Years [...] on file documented as of this encounter Progress Notes * Provider, Unknown - 10/19/2024 3:47 PM EDT documented in this encounter Plan of Treatment Upcoming Encounters Date Type Department Care Team (Late st Contact Info) Description 02/01/2025 8:45 AM EDT Appointment [place] [address] 02/01/2025 9:15 AM EDT [facility]ment [facility] [place] [address] Charlotte Alvarado MD [address] [place] [address] 02/01/2025 9:30 AM EDT Appointment [place] [address] 02/08/2025 10:30 AM EDT Appointment [place] [address] 03/01/2025 10:00 AM EDT Appointment [place] [address] 03/01/2025 10:30 AM EDT [facility]ment [facility] [place] [address] Charlotte Alvarado MD [address] [place] [address] 03/01/2025 11:00 AM EDT Appointment [facility] [place], [place] [id number] 03/08/2025 10:30 AM EDT Appointment [facility] [place], [place] [id number] 04/02/2025 11:20 AM EDT Office Visit [facility] Pul[facility] [address] [phone] Melony Paula, CHIEF DEPUTY COURT CLERK [address] [place] [address] documented as of this encounter Goals Goal Patient Goal Type Associated Problems Recent Progress Patient-Stated? Author Breast Health Breast Health On track(2020 11:50 AM EDT) Rebecca Geiger, RN Note: Patient acknowledges understanding of new diagnosis, plan of care, available resources and how to contact Nurse Navigator with any future questions or concerns. Breast [facility] Breast Health No Tere Saucedo, RN Note: Patient will maintain a healthy weight. Breast [facility] Breast Health No Basia Martínez, RN Note: Patient will be compliant with monthly Self Breast Exams and is aware of to who to contact for any unusual or concerning findings. documented as of this encounter Visit Diagnoses Not on filedocumented in this encounter Care Teams Booster Pump Oiler Relationship Specialty Start Date End Date Yony Walker MD [address] [facility] [address] [place] [address] PCP - General Family Medicine 04/07/20 Charlotte Alvarado MD [address] [place] [address] Medical Oncologist Internal Medicine-Hematology and Oncology 05/14/20 Natalie Valadez, RN Registered Nurse Infusion Therapy 10/19/24 10/19/24 Ana Paula Arechiga, RN Registered Nurse Infusion Therapy 11/09/24 11/09/24 Precious Jain, RN Registered Nurse Infusion Therapy 11/16/24 11/16/24 Irene Cheema dental scheduling coordinator Therapy 12/10/24 12/10/24 Sirisha Butterfield, ANITA Registered Nurse Infusion Therapy 01/04/25 01/04/25 Anna Raymundo RN Registered Nurse Infusion Therapy 01/11/25 01/11/25 documented as of this encounter
--- OUTSIDE RECORDS SUMMARY | 2025-01-19 10:25 | XMS_ITS | Encounter Summary ---
Author Organization [place] [address] Care Team Providers Care Pond Scaler Name Role Phone Yony Walker MD Primary Care Provider [phone] Charlotte Alvarado MD Unavailable [phone]- [phone] Irene Cheema RN Unavailable UnavailSirisha Ortega RN Unavailable Unavailable Anna Raymundo RN Unavailable Unavailable Encounter Details Date Type Department Care Team (Late Contact Info) Description 12/10/2024 Results Follow-Up [place] [address] Charlotte Alvarado MD [address] [place] [id number] SKULL BASE TO MID THIGH Social History Tobacco Use Types Packs/Day Years [...] Encounters Date Type Department Care Team (Late Contact Info) Description 02/01/2025 8:45 AM EDT Appointment [place] [address] 02/01/2025 9:15 AM EDT [facility]ment [facility] [place] [address] Charlotte Alvarado MD [address] [place] [address] 02/01/2025 9:30 AM EDT Appointment [place] [place] [address] 02/08/2025 10:30 AM EDT Appointment [place] [address] 03/01/2025 10:00 AM EDT Appointment [place] [address] 03/01/2025 10:30 AM EDT [facility]ment [facility] [place] [address] Charlotte Alvarado MD [address] [place] [address] 03/01/2025 11:00 AM EDT Appointment [facility] [place], [place] [id number] 03/08/2025 10:30 AM EDT Appointment [place] [address] 04/02/2025 11:20 AM EDT Office Visit [facility] [address] [phone] Melony Paula, SKILLED HELPER [address] [place] [address] documented as of this encounter Goals Goal Patient Goal Type Associated Problems Recent Progress Patient-Stated? Author Breast Health Breast Health On track(2020 11:50 AM EDT) Rebecca Geiger, RN Note: Patient acknowledges understanding of new diagnosis, plan of care, available resources and how to contact Nurse Navigator with any future questions or concerns. Breast Health Breast Health Tere Dillard, RN Note: Patient will maintain a healthy weight. Breast Health Breast Health Basia Perez, RN Note: Patient will be compliant with monthly Self Breast Exams and is aware of to who to contact for any unusual or concerning findings. documented as of this encounter Visit Diagnoses Not on filedocumented in this encounter Care Teams Pond Scaler Relationship Specialty Start Date End Date Yony Walker MD [facility] [address] [place] [address] PCP - General Family Medicine 04/07/20 Charlotte Alvarado MD [address] [place] [address] [place] [address] Medical Oncologist Internal Medicine-Hematology and Oncology 05/14/20 Irene Cheema hand fur cleaner Therapy 12/10/24 12/10/24 Sirisha Butterfield, RN Registered Nurse Infusion Therapy 01/04/25 01/04/25 Anna Raymundo RN Registered Nurse Infusion Therapy 01/11/25 01/11/25 documented as of this encounter
--- OUTSIDE RECORDS SUMMARY | 2025-01-19 10:25 | XMS_ITS | Encounter Summary ---
Author Organization [place] [address] Care Team Providers Care Work Force Advisor Name Role Phone Yony Walker MD Primary Care Provider [phone] [phone] Charlotte Alvarado MD Unavailable [phone]- [phone] Reason for Visit * Reason Onset Date Comments Other 01/18/2025 NON-TRANSCRIPTION SPECIALIST CYTOLOGY REQUEST (Order [id number]) Encounter Details Date Type Department Care Team (Late st Contact Info) Description 01/18/2025 Telephone [facility] [place] [address] Charlotte Alvarado MD [address] [place] [phone] Other (NON-TRANSCRIPTION SPECIALIST CYTOLOGY REQUEST (Order [id number])) Social History Tobacco Use Types Packs/Day Years [...] encounter Miscellaneous Notes * Telephone Encounter - Kelli Contreras, Clerical Staff - 01/18/2025 9:22 AM EDT Reason for call: pt asks MD take a look at her NON-TRANSCRIPTION SPECIALIST CYTOLOGY REQUEST (Order [id number]) results. Path preformed by Bucky's office Preferred call back number: [phone] documented in this encounter Plan of Treatment Upcoming Encounters Date Type Department Care Team (Late st Contact Info) Description 02/01/2025 8:45 AM EDT Appointment [place] [address] 02/01/2025 9:15 AM EDT Appointment [facility] [place] [address] Charlotte Alvarado MD [address] [place] [address] 02/01/2025 9:30 AM EDT Appointment [place] [address] 02/08/2025 10:30 AM EDT Appointment [place] [address] 03/01/2025 10:00 AM EDT Appointment [place] [address] 03/01/2025 10:30 AM EDT Appointment [facility] [place] [address] Charlotte Alvarado MD [address] [place] [address] 03/01/2025 11:00 AM EDT Appointment [place] [address] 03/08/2025 10:30 AM EDT Appointment [facility] [place], [place] [phone] 04/02/2025 11:20 AM EDT Office Visit [facility] Pulmonology [facility] [address] [phone] Melony Paula, [address] [place] [address] documented as of this encounter Goals Goal Patient Goal Type Associated Problems Recent Progress Patient-Stated? Author Breast Health Breast Health On track(2020 11:50 AM EDT) Rebecca Geiger, RN Note: Patient acknowledges understanding of new diagnosis, plan of care, available resources and how to contact Nurse Navigator with any future questions or concerns. Breast Health Breast Health No Tere Saucedo, ANITA Note: Patient will maintain a healthy weight. Breast Health Breast Health No Basia Martínez, RN Note: Patient will be compliant with monthly Self Breast Exams and is aware of to who to contact for any unusual or concerning findings. documented as of this encounter Visit Diagnoses Not on filedocumented in this encounter Care Teams Work Force Advisor Relationship Specialty Start Date End Date Yony Walker MD [facility] [address] [place] [address] PCP - General Family Medicine 04/07/20 Charlotte Alvarado MD [address] [place] [address] [place] [address] Medical Oncologist Internal Medicine-Hematology and Oncology 05/14/20 documented as of this encounter
--- OUTSIDE RECORDS SUMMARY | 2025-01-19 10:25 | XMS_ITS ---
Author Organization [facility] Address [place] [address] Phone Care Team Providers Care Director Digital Strategy Name Role Phone Yony Walker MD Primary Care Provider [phone] [phone] Charlotte Alvarado MD Unavailable [phone]- [phone] Active Problems Problem Noted Date Diagnosed Date Lymphedema of left arm 07/27/2024 Vitamin D deficiency 11/09/2023 Vitamin B12 deficiency 11/09/2023 Hyperlipidemia 11/09/2023 Essential hypertension 11/09/2023 Assessment & Plan (07/12/2024 6:17 PM EST): Assessment & Plan (07/05/2024 10:28 AM EST): Elevated glycohemoglobin 11/09/2023 Allergic rhinitis 11/09/2023 Acquired hypothyroidism 11/09/2023 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 See Pharmacogenomics profile in Miscellaneous reports tab. 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 We recommend a statin that is less impacted by UYUB5W6 such as rosuvastatin, pravastatin or a lower dose of simvastatin (<=20mg). See Pharmacogenomics profile in Miscellaneous reports tab (Chart review > Misc Reports). 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 This can lead to a higher drug levels of medications impacted by CYP2B6 such as Efavirenz, bupropion. See Pharmacogenomics profile in Miscellaneous reports tab (Chart review > Misc Reports). UGT1A1 intermediate metabolizer 02/09/2021 Overview (02/09/2021): Patient has a genotype-predicted UGT1A1 intermediate metabolizer activity (*1/*28), which can lead to reduced metabolism of drugs impacted by UGT1A1. Drugs that may be impacted by UGT1A1 include irinotecan, atazanavir, nilotinib. See Pharmacogenomics profile in Miscellaneous reports tab (Chart review > Misc Reports). Acute appendicitis with loca lized peritonitis, without perforation, abscess, or gangrene 06/17/2020 History of breast cancer, left breast 03/31/2020 Cancer Staging:Clinical stage from 04/08/2020:Stage IIIB(cT1, cN2a, cM0, G2, ER- , [place]-, HER2-) - Signed by Charlotte Craig MD on 04/18/2020 Overview (03/31/2020): Added automatically from request for surgery [id number] Assessment & Plan (07/12/2024 6:17 PM EST): Assessment & Plan (07/05/2024 10:28 AM EST): Invasive ductal carcinoma of breast, female, lef t Current Treatment and Therapy Plans ONC sacituzumab govitecan (10) d1,8 + GCSF Q28D* Plan Start Date:10/13/2023 Plan Provider:Charlotte Alvarado MD Linked Problems Invasive ductal carcinoma of breast, female, left (HCC) Treatment Medications Current Day (Day 1 , Cycle 19 - Planned for 02/01/2025) Next Day (Day 8, Cycle 19 - Planned for 02/08/2025) sacituzumab govitecan-hziy (TRODELVY)sacituzumab govitecan-hziy (TRODELVY) chemo infusion sacituzumab govitecan-hziy (TRODELVY) 350 mg in sodium chloride 0.9 % 500 mL chemo infusion sacituzumab govitecan-hziy (TRODELVY) 350 mg in sodium chloride 0.9 % 500 mL chemo infusion ONCSEH hydration + pre-meds + electrolytes* Plan Start Date:06/16/2020 Plan Provider:Mei Talley APRN Linked Problems Invasive ductal carcinoma of breast, female, left (HCC) Treatment Medications No medications scheduled. Other Current Plans ONCSEH PORT/PICC FLUSH* Plan Start Date:06/16/2020 Plan Provider:Charlotte Alvarado MD Linked Problems History of breast cancer Treatment Medications No medications scheduled. Past Treatment and Therapy Plans ONCOLOGY TREATMENT Plan Name Start Date Discontinue Date Treatment Medications Discontinue Reason Plan Provider Cycles ONC CARBOplatin (5) + gemcitabine (1000) Q21D 09/23/19 24 09/30/2023 CARBOplatin (PARAPLATIN)CARBOpl atin (PARAPLATIN) chemo infusion (by AUC)gemcitabine (GEMZAR)gemcitabine (GEMZAR) chemo infusion Therapy Complete Charlotte Alvarado MD 1 of 6 cycles started ONC sacituzumab govitecan (10) d1,8 + GCSF Q21D 09/23/19 24 09/21/2023 sacituzumab govitecan-hziy (TRODELVY) Plan Conversion Charlotte Alvarado MD Treatment not started ONC Dose Dense (AC-T) DOXOrubicin + cyclophosphamide + N Q14D x 4 FOLLOWED by PACLItaxol (80) WEEKLY x 12 Weeks 201901/28/2021 cyclophosphamide (CYTOXAN) chemo infusionPACLitaxel (TAXOL)PACLitaxel (TAXOL) chemo infusion (< 300 mg) Therapy Complete Charlotte Alvarado MD 8 of 8 cycles started Lifetime Dose Tracking * Chemical Lifetime Dose Automatic Entry Manual Entr y doxorubicin 240.8 mg/m2 (440 mg) 240.8 mg/m2 (440 mg) 0 mg/m2 (0 mg)
--- OUTSIDE RECORDS SUMMARY | 2025-01-19 10:25 | XMS_ITS | Clinical Summary ---
Author Organization [facility] Address [facility] [place] [address] Phone Care Team Providers Care Regional Planner Name Role Phone Yony Walker MD Primary Care Provider [phone] Charlotte Alvarado MD Unavailable [phone] Allergies No known active allergies Medications fluticasone propionate (FLONASE) 50 mcg/actuation Nasl [place], Suspension 1 [place] by Nasal route daily. Active Calcium Citrate-Vitamin D3 200 mg-3.125 mcg (125 unit) Oral Tablet Take 125 mcg by mouth daily. Active LEVOthyroxine (SYNTHROID) 75 mcg Oral Tablet Take 75 mcg by mouth daily. Active multivitamin (THERAGRAN) Oral Tablet Take 1 Tablet by mouth daily. Active lisinopriL-hydro chlorothiazide (PRINZIDE;ZESTOR ETIC) 10-12.5 mg Oral Tablet Take 0.5 Tablets by mouth daily. 3 Active prochlorperazine (COMPAZINE) 10 mg Oral TabletIndication s:Invasive ductal carcinoma of breast, female, left (HCC) Take 1 tablet by mouth every 6 hours as needed for nausea and vomiting. 30 Tablet 5 4 Active loperamide (IMODIUM) 2 mg Oral CapsuleIndicatio ns:Invasive ductal carcinoma of breast, female, left (HCC) Take 4 mg by mouth for the first dose and then 2 mg by mouth as needed with every loose bowel movement up to a total of 16 mg/day(8 caps/day). 100 Capsule 2 4 Active ibuprofen (ADVIL;MOTRIN) 600 mg Oral Tablet Take 600 mg by mouth 3 times daily. 4 Active rosuvastatin (CRESTOR) 10 mg Oral Tablet Take 10 mg by mouth daily. 4 Active acyclovir (ZOVIRAX) 400 mg Oral TabletIndication s:H/O cold sores Take 1 Tablet by mouth 2 times daily. 60 Tablet 4 5 Active pantoprazole (PROTONIX) 40 mg Oral Tablet, Delayed Release (E.C.)Indication s:Gastroesophage al reflux disease without esophagitis Take 1 Tablet by mouth daily. 90 Tablet 4 5 Active Active Problems Problem Noted Date Diagnosed Date [...] reports tab. 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 We recommend a statin that is less impacted by KEHS8U1 such as rosuvastatin, pravastatin or a lower [...] 04/08/2020:Stage IIIB(cT1, cN2a, cM0, G2, ER- , WA-, HER2-) - Signed by Charlotte Craig MD on 04/18/2020 Overview (03/31/2020): Added automatically from request for surgery [id number] Assessment & Plan (07/12/2024 6:17 PM EST): Assessment & Plan (07/05/2024 10:28 AM EST): Invasive ductal carcinoma of breast, female, lef t Encounters Date Type Department Care Team Description 01/18/2025 Telephone [facility] [place] [address] Charlotte Alvarado MD Other (NON-CRITICAL CARE RN CYTOLOGY REQUEST (Order [id number])) 01/15/2025 12:47 PM EDT Anesthesia Event [facility] [address] [place] [address] Blake Pride MD Trog, Lynnsey, APRN 01/15/2025 11:23 AM EDT - 01/15/2025 11:59 PM EDT Hospital Encounter [facility] [address] [place] [address] Radha Saenz, LUIS ENRIQUE Discharge Disposition: Home or Self Care 01/15/2025 10:54 AM EDT - 01/15/2025 11:22 AM EDT Hospital Encounter [facility] [address] [place] [address] Maryanne Lawler MD Dolan, Damian F, MD Coughlin, Amanda L, CRNA Essential hypertension (Primary Dx); Preop testing; History of breast cancer, left breast; Mediastinal adenopathy; History of breast cancer Discharge Disposition: Home or Self Care 01/14/2025 Telephone [facility] [address] [facility] [address] [place] [address] Maryanne Lawler MD Other 01/11/2025 10:58 AM EDT - 01/11/2025 11:59 PM EDT Hospital Encounter [facility] [place] [address] Charlotte Alvarado MD Invasive ductal carcinoma of breast, female, left (HCC) (Primary Dx) Discharge Disposition: Home or Self Care 01/04/2025 11:00 AM EDT - 01/04/2025 11:59 PM EDT Hospital [place] [address] Charlotte Alvarado MD Invasive ductal carcinoma of breast, female, left (HCC) (Primary Dx) Discharge Disposition: Home or Self Care 01/04/2025 10:04 AM EDT - 01/04/2025 10:59 AM EDT Hospital Encounter [facility] [place] [address] Charlotte Alvarado MD Ott, Emilee Ann, APRN Invasive ductal carcinoma of breast, female, left (HCC) (Primary Dx); Malignant neoplasm of overlapping sites of left female breast, unspecified estrogen receptor status (HCC); Lymphedema of left arm; Port-A-Cath in place; Encounter for antineoplastic chemotherapy; Antineoplastic chemotherapy induced anemia; Cancer, 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); CYP2D6 poor metabolizer (HCC) Discharge Disposition: Home or Self Care 01/04/2025 9:54 AM EDT - 01/04/2025 10:03 AM EDT Hospital Encounter [place] [address] Charlotte Alvarado MD Invasive ductal carcinoma of breast, female, left (HCC) (Primary Dx) Discharge Disposition: Home or Self Care 01/03/2025 Travel 01/01/2025 Telephone [facility] [address] [address] Maryanne Lawler MD Other 12/31/2024 2:45 PM EDT Office Visit [facility] [address] [address] Maryanne Lawler MD History of breast cancer, left breast (Primary Dx); Mediastinal adenopathy 12/28/2024 [facility]phone [facility] [place], [place] [id number] Charlotte Alvarado MD Paperwork/forms (Lymphedema Pump order ) 12/17/2024 10:30 AM EDT - 12/17/2024 11:59 PM EDT Hospital Encounter [facility] [place], [place] [id number] Charlotte Alvarado MD Invasive ductal carcinoma of breast, female, left (HCC) (Primary Dx) Discharge Disposition: Home or Self Care 12/10/2024 11:23 AM EDT - 12/10/2024 11:59 PM EDT Hospital Encounter [place] [address] Charlotte Alvarado MD Invasive ductal carcinoma of breast, female, left (HCC) (Primary Dx) Discharge Disposition: Home or Self Care 12/10/2024 10:49 AM EDT - 12/10/2024 11:22 AM EDT Hospital Encounter [facility] [place] [address] Charlotte Alvarado MD Invasive ductal carcinoma of breast, female, left (HCC) (Primary Dx); Hilar adenopathy Discharge Disposition: Home or Self Care 12/10/2024 10:28 AM EDT - 12/10/2024 10:48 AM EDT Hospital Encounter [place] [address] Charlotte Alvarado MD Invasive ductal carcinoma of breast, female, left (HCC) (Primary Dx) Discharge Disposition: Home or Self Care 12/10/2024 Results Follow-Up [place] [address] Charlotte Alvarado MD PET CT SKULL BASE TO MID THIGH 12/07/2024 1:34 PM EDT - 12/07/2024 11:59 PM EDT Hospital Encounter [facility] [address] [place] [address] Denisa Dueñas, PT Discharge Disposition: Home or Self Care 12/07/2024 10:25 AM EDT - 12/07/2024 1:33 PM EDT Hospital Encounter [facility] [place] [address] Charlotte Alvarado MD Pre-procedural laboratory examination (Primary Dx); Invasive ductal carcinoma of breast, female, left (HCC); Malignant neoplasm of overlapping sites of left female breast, unspecified estrogen receptor status (HCC) Discharge Disposition: Home or Self Care 12/07/2024 Plan of Care Documentation [facility] [address] [place] [address] 11/16/2024 10:00 AM EDT - 11/16/2024 11:59 PM EDT Hospital Encounter [place] [address] Charlotte Alvarado MD Invasive ductal carcinoma of breast, female, left (HCC) (Primary Dx) Discharge Disposition: Home or Self Care 11/09/2024 9:30 AM EDT - 11/09/2024 11:59 PM EDT Hospital [place] [address] Charlotte Alvarado MD Invasive ductal carcinoma of breast, female, left (HCC) (Primary Dx) Discharge Disposition: Home or Self Care 11/09/2024 9:15 AM EDT - 11/09/2024 9:29 AM EDT Hospital Encounter [facility] [place] [address] Charlotte Alvarado MD Invasive ductal carcinoma of breast, female, left (HCC) (Primary Dx); History of breast cancer, left breast; Malignant neoplasm of overlapping sites of left female breast, unspecified estrogen receptor status (HCC) Discharge Disposition: Home or Self Care 11/09/2024 9:00 AM EDT - 11/09/2024 9:14 AM EDT Hospital Encounter [place] [address] Charlotte Alvarado MD Invasive ductal carcinoma of breast, female, left (HCC) (Primary Dx) Discharge Disposition: Home or Self Care 10/19/2024 9:58 AM EDT - 10/19/2024 11:59 PM EDT Hospital [place] [address] Charlotte Alvarado MD Invasive ductal carcinoma of breast, female, left (HCC) (Primary Dx) Discharge Disposition: Home or Self Care 10/19/2024 8:16 AM EDT - 10/19/2024 9:57 AM EDT Hospital Encounter [facility] [address] [place] [address] Denisa Dueñas, PT Discharge Disposition: Home or Self Care 10/19/2024 Plan of Care Documentation [facility] [address] [place] [address] from Last 3 Months Immunizations Immunization Administration Dates Next Due Maged SARS-CoV-2 Vaccine 08/22/2020 Surgical History Surgery Date Site/Laterality Comments BREAST SURGERY 06/20/1976 Left lumpectomy BREAST BIOPSY 03/12/2020 Left ANKLE FRACTURE SURGERY LYMPH NODE BIOPSY 04/10/2020 N/A Left [place] Lymph Node Dissection, Port a cath placement with fluoroscopy ; Surgeon: Blayne Martel MD; Location[facility]; Service: General Medical devices from this surgery are in the Medical Devices section. CENTRAL VENOUS CATHETER 04/10/2020 N/A Surgeon: Blayne Martel MD; Location[facility]; Service: General Medical devices from this surgery are in the Medical Devices section. LAPAROSCOPIC APPENDECTOMY 06/17/2020 N/A laparoscopic appendectomy; Surgeon: Elmer Villafana MD; Location[facility]; Service: General APPENDECTOMY BREAST LUMPECTOMY 10/24/2020 Left Left breast neema segmentectomy, axillary lymph node dissection ; Surgeon: Blayne Martel MD; Location[facility]; Service: General Medical History Medical History Date Comments Syncope and collapse after deliv sandra of all kids, have fainting episodes Motion sickness Thyroid disease Anemia mild secondary t o chemo Invasive ductal carcinoma of breast, female, left (HCC) Last chemo 09-05-20, CBC done 09-12-20 Hypertension Hyperlipidemia Family History Medical History Relation Name Comments High Blood Pressure Father High Cholesterol Father Transient Ischemic Attack Father Breast Cancer Maternal Aunt No Known Problems Maternal Grandfather Colon Cancer Maternal Grandmother Arthritis Mother High Blood Pressure Mother High Cholesterol Mother No Known Problems Other No Known Problems Paternal Grandfather No Known Problems Paternal Grandmother Breast Cancer Sister Allergies Neg Hx Anesth Problems Neg Hx Bleeding Prob Neg Hx Cancer Neg Hx Hearing Loss Neg Hx Heart Disease Neg Hx Migraines Neg Hx Thyroid Disease Neg Hx Relation Name Status Comments Father Alive Maternal Aunt Maternal Grandfather Maternal Grandmother Mother Alive Other Paternal Grandfather Paternal Grandmother Sister Social History Tobacco Use Types Packs/Day Years [...] on file Sexual Orientation Not on file Obstetrics History Para Term AB IAB SAB Ectopic Multiple Livin g Live Births 4 4 4 Date Outcome GA Total Labor Labor/2nd/3rd Weight Sex Type Anes PTL Sophia A1 A5 Name Clin Term Term Term Term Last Filed Vital Signs Vital Sign Reading Time Taken Comments Blood Pressure 141/77 01/15/2025 2:30 PM EDT Pulse 93 01/15/2025 2:30 PM EDT Temperature 36.3 C (97.3 F) 01/15/2025 11:36 AM EDT Respiratory Rate 16 01/15/2025 2:30 PM EDT Oxygen Saturation 98% 01/15/2025 2:30 PM EDT Inhaled Oxygen Concentration - - Weight 68.4 kg (150 lb 11.2 oz) 025 11:36 AM EDT Height 167.6 cm (5' 6 ) 01/04/2025 10:0 5 AM EDT Body Mass Index 24.32 01/04/2025 10:05 AM EDT Plan of Treatment Upcoming Encounters Date Type Department Care Team (Late st Contact Info) Description 02/01/2025 8:45 AM EDT Appointment [place] [address] 02/01/2025 9:15 AM EDT [facility]ment [facility] [place] [address] Charlotte Alvarado MD [address] [place] [address] 02/01/2025 9:30 AM EDT Appointment [place] [address] 02/08/2025 10:30 AM EDT Appointment [place] [address] 03/01/2025 10:00 AM EDT Appointment [place] [address] 03/01/2025 10:30 AM EDT [facility]ointment [facility] [place] [address] Charlotte Alvarado MD [address] [place], [place] [id number] 03/01/2025 11:00 AM EDT Appointment [facility] [place], [place] [id number] 03/08/2025 10:30 AM EDT Appointment [facility] [place], [place] [id number] 04/02/2025 11:20 AM EDT Office Visit [facility] [address] [address] Melony Paula, STRIP MACHINE OPERATOR [address] [place] [address] Health Maintenance Due Date Last Done Comments Wellness Exam Medicare 1962 Hepatitis C Screening 1977 DTaP/TDaP/Td (1 - Tdap) 1978 Pneumococcal Vaccine 50+ (1 of 2 - PCV) 1978 Zoster (1 of 2) 1978 Cervical Cancer Screening 1980 Pap Smear 1980 HPV/Pap Cotest 1989 Cologuard 2004 FIT 2004 Sigmoidoscopy 2004 Virtual Colonography 2004 COVID-19 Vaccine (#1) 09/19/2020 Influenza Vaccine (#1) 2025 Breast Cancer Screening 07/12/2025 07/12/19 24, 11/29/2022, 11/26/2021, Additional history exists Colon Cancer Screening 02/28/2028 Colonoscopy 02/28/2028 03/01/2023 Bone Density Screening Completed 10/21/2020, 2016 Hepatitis B Vaccine Aged Out No longe r eligible based on patient's age to complete this topic Meningococcal B Vaccine Aged Out No l onger eligible based on patient's age to complete this topic Goals Goal Patient Goal Type Associated Problems Recent Progress Patient-Stated? Author [facility] On track(2020 11:50 AM EDT) Rebecca Geiger, ANITA Note: Patient acknowledges understanding of new diagnosis, plan of care, available resources and how to contact Nurse Navigator with any future questions or concerns. [facility] No Teer Saucedo, ANITA Note: Patient will maintain a healthy weight. [facility] No Basia Martínez RN Note: Patient will be compliant with monthly Self Breast Exams and is aware of to who to contact for any unusual or concerning findings. Medical Devices Implanted Type Area Custodial Worker Device Identifier Shelf Expiration Date Model / Serial / Lot [place] [employer] Mini Ft 2-0 Fiberwire - [id number] Implanted:Qty: 1 on 08/13/2015 by eK Waldron MD at [facility] Left: Ankle ARTHREX 08/17/2019 AR-1319FT / / [id number] [place] [employer] Mini Ft 2-0 Fiberwire - [id number] Implanted:Qty: 1 on 08/13/2015 by Ke Waldron MD at [facility] Left: Ankle ARTHREX 12/18/2019 AR-1319FT / / [id number] [place] [employer]w Mini Ft 2-0 Fiberwire - [id number] Implanted:Qty: 1 on 08/13/2015 by Ke Waldron MD at [facility] Left: Ankle ARTHREX 05/19/2020 AR-1319FT / / [id number] [place] Ti Vortex 8fr W/Attachable Bioflo Cath - [id number] Implanted:Qty: 1 on 04/10/2020 by Blayne Martel MD at [facility] Right: Chest [employer] [id number] 05/19/2022 [id number] / / [id number] Procedures Procedure Name Priority Date/Time Associated Diagnosis Comments ENDOSCOPIC BRONCHIAL ULTRASOUND (EBUS) Routine 01/15/2025 1:44 PM EDT History of breast cancer, left breast Mediastinal adenopathy AFB [id number]-[id number] TO RIFAMPIN PCR-REF LAB Routine 01/15/2025 1:35 PM EDT Essential hypertension Preop testing History of breast cancer Mediastinal adenopathy LOWER RESPIRATORY CULTURE (STAIN INCLUDED) Routine 01/15/2025 1:35 PM EDT Essential hypertension Preop testing History of breast cancer Mediastinal adenopathy NON-CRITICAL CARE RN CYTOLOGY REQUEST Routine 01/15/2025 1:05 PM EDT Essential hypertension Preop testing History of breast cancer Mediastinal adenopathy INTRAOP AIRWAY PLACEMENT Routine 01/15/2025 12:53 PM EDT EK EKG 12 LEAD STAT 01/15/2025 11:23 AM EDT Essential hypertension Preop testing COMPREHENSIVE METABOLIC PANEL STAT 01/11/2025 11:15 AM EDT Invasive ductal carcinoma of breast, female, left (HCC) CBC WITH DIFF STAT 01/11/2025 11:15 AM EDT Invasive ductal carcinoma of breast, female, left (HCC) CBC WITH DIFF STAT 01/04/2025 10:02 AM EDT Invasive ductal carcinoma of breast, female, left (HCC) COMPREHENSIVE METABOLIC PANEL STAT 01/04/2025 10:02 AM EDT Invasive ductal carcinoma of breast, female, left (HCC) COMPREHENSIVE METABOLIC PANEL STAT 12/17/2024 10:46 AM EDT Invasive ductal carcinoma of breast, female, left (HCC) CBC WITH DIFF STAT 12/17/2024 10:46 AM EDT Invasive ductal carcinoma of breast, female, left (HCC) COMPREHENSIVE METABOLIC PANEL Routine 12/10/2024 11:41 AM EDT Invasive ductal carcinoma of breast, female, left (HCC) COMPREHENSIVE METABOLIC PANEL STAT 12/10/2024 10:48 AM EDT Invasive ductal carcinoma of breast, female, left (HCC) CBC WITH DIFF STAT 12/10/2024 10:48 AM EDT Invasive ductal carcinoma of breast, female, left (HCC) PET CT SKULL BASE TO MID THIGH Routine 12/07/2024 12:04 PM EDT Invasive ductal carcinoma of breast, female, left (HCC) Malignant neoplasm of overlapping sites of left female breast, unspecified estrogen receptor status (HCC) GLUCOSE METER POC Routine 12/07/2024 10: 30 AM EDT COMPREHENSIVE METABOLIC PANEL BRYN 11/16/2024 10:20 AM EDT CBC WITH DIFF STAT 11/16/2024 10:20 AM EDT Invasive ductal carcinoma of breast, female, left (HCC) COMPREHENSIVE METABOLIC PANEL STAT 11/09/2024 9:22 AM EDT Invasive ductal carcinoma of breast, female, left (HCC) CBC WITH DIFF STAT 11/09/2024 9:22 AM EDT Invasive ductal carcinoma of breast, female, left (HCC) COMPREHENSIVE METABOLIC PANEL STAT 10/19/2024 10:13 AM EDT Invasive ductal carcinoma of breast, female, left (HCC) CBC WITH DIFF STAT 10/19/2024 10:13 AM EDT Invasive ductal carcinoma of breast, female, left (HCC) MM MAMMO DIGITAL EHSAN DIAGN LEFT Routine 07/12/2023 2:30 PM EST History of breast cancer Fullness of breast Nipple pain COLONOSCOPY Routine 03/01/2023 2:58 PM EDT Screening for colon cancer DX BONE DENSITY AXIAL SKELETON Routine 10/21/2020 12:51 PM EDT Invasive ductal carcinoma of breast, female, left (HCC) Post-menopausal from Last 3 Months or Most Recently Relevant to Health Maintenance Results * ENDOSCOPIC BRONCHIAL ULTRASOUND (EBUS) (01/15/2025 [...] Nodes observed under convex ultrasound guidance. Onsite parts identification technician was present. Recommendation Await pathology results Pre-Procedure Diagnosis / Indication Mediastinal adenopathy, History of breast cancer Post-Procedure Diagnosis None Staff Staff Role Cheryl Lagunas CRNA TOP PRECIPITATOR OPERATOR Blake Pride MD Anesthesiologist Maryanne Lawler MD Performing Provider Laith Lopez, medical equipment technician Nurse Adal Galvin, ANITA Geological Aide Medications See Anesthesia Record. No administrations occurring [...] fine needle aspiration- ebus Aspirate Lymph Node NON-CRITICAL CARE RN CYTOLOGY REQUEST Maryanne Lawler MD 01/15/2025 1305 2 : station 7 fine needle aspiration- ebus Aspirate Lymph Node NON-CRITICAL CARE RN CYTOLOGY REQUEST Maryanne Lawler MD 01/15/2025 1312 3 : R10 lymph node fine needle aspiration- ebus Aspirate Lymph Node NON-CRITICAL CARE RN CYTOLOGY REQUEST Maryanne Lawler MD 01/15/2025 1322 4 : R11 lymph node fine needle aspiration- ebus Aspirate Lymph Node NON-CRITICAL CARE RN CYTOLOGY REQUEST Maryanne Lawler MD 01/15/2025 1329 5 : bronchus wash Wash Bronchus LOWER RESPIRATORY CULTURE (STAIN INCLUDED), FUNGUS CULTURE (NO STAIN), ACID FAST BACILLI CULTURE AND SMEAR (STAIN INCLUDED), NON-CRITICAL CARE RN CYTOLOGY REQUEST Maryanne Lawler MD 01/15/2025 1335 Anesthesia Event Time In Patient In - Proc. Room 12:48 PM Maryanne Lawler MD ENDOSCOPY PROCEDURE ORDERABLES Final Result * (ABNORMAL) LOWER RESPIRATORY CULTURE (STAIN INCLUDED) (01/15/2025 1:35 PM EDT) Culture Positive Growth(A) 01/17/2025 1:52 PM EDT [facility] Culture Sparse growth of Haemophilus influenzae SUSCEPTIBI [...] GENERAL ORDERABL ES Final Result [facility] [address] [facility] [address] [place] [address] * NON-CRITICAL CARE RN CYTOLOGY REQUEST (01/15/2025 1:05 PM EDT) CASE REPORT Non-gynecologic Cytology Case: [id number] Authorizing Provider: Maryanne Lawler MD Collected: 01/15/2025 1335 Ordering Location: [facility] Received: 01/15/2025 1551 Pathologist: Keo Vera MD Specimens: A) - Lymph Node, R4 lymph node fine needle aspiration- ebus B) - Lymph Node, station 7 fine needle aspiration- ebus C) - Lymph Node, R10 lymph node fine needle aspiration- ebus D) - Lymph Node, R11 lymph node fine needle aspiration- ebus E) - Bronchus, bronchus wash 01/16/2025 1:[address] [facility] NON-CRITICAL CARE RN CYTOLOGY FINAL DIAGNOSIS A. Lymph node, R4, [...] consistent with joycelyn 01/16/2025 1:41 PM EDT [facility] at 1341 EDT EMBEDDED IMAGES 01/16/2025 1:41 PM EDT [facility] MICROSCOPIC DESCRIPTION Microscopic examination is performed and the findings corroborate the diagnosis. 01/16/2025 1:41 PM EDT [facility] Gross Description A. EBUS, R4, Rec'd 2 [...] Gross description has been reviewed by screening parts identification technician. 01/16/2025 1:[address] [facility] Specimen obtained by aspiration (specimen) STRUCTURE OF [...] Lawler MD CYTOLOGY ORDERABLES Final Resul t [place] [id number] * INTRAOP AIRWAY PLACEMENT (01/15/2025 12:53 PM EDT) Narrative [facility] - 01/15/2025 12:53 PM EDT Cheryl Lagunas CRNA 01/15/2025 1:06 PM Intraop Airway Placement: Date/Time: [...] Unchanged and Atraumatic Insertion attempts: 1 Title: TOP PRECIPITATOR OPERATOR us Blake Pride MD [place] [address] * EK EKG 12 LEAD (01/15/2025 11:23 AM EDT) Anatomical Region Laterality Modality Electrocardiogra phy 01/15/2025 11:3 1 AM EDT Impressions 01/15/2025 6:[address] [facility] Test Date: 2025-01-15 Pat Name: MICHELLE NOLAN Department: DEPID Room: Gender: Female General Assignment Reporter: Devon : 1960 Requested By: RADHA SAENZ Order Number: [id number] Reading MD: Whit Ferguson DO Measurements Intervals [place] Rate: 91 P: 57 WA: 144 QRS: 48 QRSD: 71 T: 44 QT: 333 QTc: 410 Interpretive Statements SINUS RHYTHM Electronically Signed On 01-15-2025 18:08:16 EDT by Whit Ferguson DO Narrative Procedure Note Whit Ferguson DO - 01/15/[address] [facility] Test Date: 2025-01-15 Pat Name: MICHELLE NOLAN Department: DEPID Room: Gender: Female General Assignment Reporter: Devon : 1960 Requested By: RADHA SAENZ Order Number: [id number] Reading MD: Whit Ferguson DO Measurements Intervals [place] Rate: 91 P: 57 WA: 144 QRS: 48 QRSD: 71 T: 44 QT: 333 QTc: 410 Interpretive Statements SINUS RHYTHM Electronically Signed On 01-15-2025 18:08:16 EDT by Whit Ferguson DO us Radha Saenz NERVE SPECIALIST IMG ECG ORDERABLES Final Resul t * (ABNORMAL) CBC WITH DIFF (01/11/2025 11:15 AM EDT) Only the most recent of7 resultswithin the time period is included. WBC 8.2 3.7 - 10.3 x10(3)/mc L 01/11/2025 11:24 AM EDT [facility] RBC 3.48(L) 3.90 - 5.20 x10(6)/mc L 01/11/2025 11:24 AM EDT [facility] Hgb 11.1(L) 11.2 - 15.7 g/dL 01/11/2025 11:[address] [facility] Hct 33.8(L) 34.0 - 45.0 % 01/11/2025 11:24 AM EDT [facility] MCV 97.1 80.0 - 100.0 fL 01/11/2025 11:24 AM EDT [facility] MCH 31.9 26.0 - 34.0 pg 01/11/2025 11:24 AM EDT [facility] MCHC 32.8 30.7 - 35.5 g/dL 01/11/2025 11:24 AM EDT [facility] RDW 15.4(H) <=14.9 % 01/11/2025 11:[address] [facility] Platelet 331 155 - 369 x10(3)/mc L 01/11/2025 11:24 AM EDT [facility] MPV 10.0 8.8 - 12.5 fL 01/11/2025 11:24 AM EDT [facility] Neut # Prelim 6.1 1.6 - 6.1 x10(3)/mc L 01/11/2025 11:24 AM EDT [facility] Comment:Preliminary automate d absolute neutrophil count. Value may change if manual differential is indicated. Neut Percent 74.8 % 01/11/2025 11:24 AM EDT [facility] Comment:Neutrophils equals s egs plus bands Imm Gran% 0.4 % 01/11/2025 11:24 AM EDT [facility] Comment:Automated count of m etamyelocytes, myelocytes and promyelocytes. Lymph Percent 13.4 % 01/11/2025 11:24 AM EDT [facility] [place] Percent 6.0 % 01/11/2025 11:24 AM EDT [facility] Eos Percent 5.2 % 01/11/2025 11:24 AM EDT [facility] Baso Percent 0.2 % 01/11/2025 11:24 AM EDT [facility] Neut # 6.1 1.6 - 6.1 x10(3)/mc L 01/11/2025 11:[address] [facility] Comment:Neutrophils equals s egs plus bands IMMGRAN# 0.0 0.0 - 0.1 x10(3)/mc L 01/11/2025 11:24 AM EDT [facility] Comment:Automated count of m etamyelocytes, myelocytes and promyelocytes. An absolute IG <0.1 is reported as 0.0. Lymph # 1.1(L) 1.2 - 3.9 x10(3)/mc L 01/11/2025 11:[address] [facility] [place] # 0.5 0.3 - 0.9 x10(3)/mc L 01/11/2025 11:24 AM EDT [facility] Eos# 0.4 0.0 - 0.5 x10(3)/mc L 01/11/2025 11:24 AM EDT [facility] Baso # 0.0 0.0 - 0.1 x10(3)/mc L 01/11/2025 11:[address] [facility] Blood VENOUS STRUCTURE / Unknown Port / Unknown 01/11/2025 11:15 AM EDT 01/11/2025 11:21 AM EDT us Charlotte Alvarado MD HEMATOLOGY ORDERABLE S Final Result [facility] [address] [place] [address] * (ABNORMAL) COMPREHENSIVE METABOLIC PANEL (01/11/2025 11:15 AM EDT) Only the most recent of8 resultswithin the time period is included. Sodium 140 136 - 145 mmol/L 01/11/2025 11:41 AM [facility] Potassium 4.2 3.5 - 5.0 mmol/L 01/11/2025 11:41 AM [facility] Chloride 103 98 - 107 mmol/L 01/11/2025 11:41 AM [facility] Total CO2 25 22 - 29 mmol/L 01/11/2025 11:41 AM [facility] Anion Gap 12 7 - 16 mmol/L 01/11/2025 11:41 AM [facility] Calcium 8.8 8.8 - 10.4 mg/dL 01/11/2025 11:41 AM [facility] Glucose Lvl 97 70 - 99 mg/dL 01/11/2025 11:41 AM [facility] BUN 17 8 - 23 mg/dL 01/11/2025 11:41 AM [facility] Creatinine 0.96 0.51 - 1.30 mg/dL 01/11/2025 11:41 AM [facility] Albumin 3.8 3.2 - 4.6 gm/dL 01/11/2025 11:41 AM [facility] Total Protein 6.4 6.4 - 8.3 gm/dL 01/11/2025 11:41 AM [facility] Bili Total <0.2(L) 0.2 - 1.3 mg/dL 01/11/2025 11:41 AM [facility] ALT 12 <=41 U/L 01/11/2025 11:41 AM [facility] AST 13 <=40 U/L 01/11/2025 11:41 AM [facility] Alk Phos 141(H) 36 - 123 U/L 01/11/2025 11:41 AM [facility] eGFR (CKD-EPIcr 2020) 65 >=60 mL/min/1.7 3 m2 01/11/2025 11:41 AM [facility] Comment:Estimated GFR was ca lculated using the CKD-EPIcr (2020) equation refit without race. The equation is recommended by the National [employer] - [place] [employer]ph[employer] Task Force. Blood VENOUS STRUCTURE / Unknown Port / Unknown 01/11/2025 11:15 AM EDT 01/11/2025 11:21 AM EDT us Charlotte Alvarado MD CHEMISTRY ORDERABLES Final Result [place] [id number] * PET CT SKULL BASE TO MID [...] GLUCOSE METER POC (12/07/2024 10:30 AM EDT) [facility] [address] Glucose Meter POC 84 70 - 100 mg/dL 12/07/2024 10:32 AM EDT [facility] Sample Type Capillary 12/07/2024 10:32 AM EDT [facility] Patient Status Non-Critical Patient 12/07/2024 10:32 AM EDT [facility] Blood BLOOD SPECIMEN / Unknown 12/07/2024 10:30 AM EDT 12/07/2024 10:32 AM EDT us Charlotte Alvarado MD POINT OF CARE TEST O RDERABLES Final Result [facility] [address] [place] [address] * MM MAMMO DIGITAL EHSAN DIAGN LEFT (07/12/2023 2:30 PM EST) Anatomical Region Laterality Modality Breast Left Mammography 07/12/2023 4:05 PM EST Impressions 07/12/2023 4:05 PM EST Incomplete-need additional imaging evaluation (MIW-Guombkzw-0) Intervally increased left breast skin thickening. Otherwise stable left mammograms, including stable postsurgical changes from left lumpectomy and axillary lymph node dissection. The region of patient reported swelling and rash, greatest superior to the left nipple, will be further evaluated with targeted ultrasound. ~ RECOMMENDATION: Ultrasound of the left breast. This ultrasound examination will be performed on the same date and reported separately. ~ DISCLAIMER * Any patient with a palpable abnormality, unexplained by breast imaging, should be managed on clinical basis by the attending physician. * Breast imaging has a false negative rate of 15%. * The patient was notified by mail of the results of this examination. *The patient's information was entered into a reminder system with a target due date for the next mammogram, in accordance with the [place] [employer] and the Society of Breast Imaging recommendations. Narrative 07/12/2023 4:05 PM EST Procedure:MM MAMMO DIGITAL EHSAN DIAGN LEFT ~ Reason for exam: clinical finding. Z85.3-Personal history of malignant neoplasm of tqheqn-KEM-64-CM N64.89-Other specified disorders of tkhecr-HXQ-35-CM N64.6-Rdrjfoktzr-VMK-10-CM; 63-year-old with history of left breast invasive ductal carcinoma, metastatic to left axillary lymph nodes, status post lumpectomy in October 2020. The patient also had chemoradiation. Currently, the patient reports a one month history of rash and swelling superior to the left nipple, with associated nipple tenderness. Z85.3-Personal history of malignant neoplasm of zdptks-IAE-96-CM N64.89-Other specified disorders of dinpfn-AQZ-97-CM N64.8-Kklfzzhyig-TDM-10-CM; 63-year-old with history of left breast invasive ductal carcinoma, metastatic to left axillary lymph nodes, status post lumpectomy in October 2020. The patient also had chemoradiation. Currently, the patient reports a one month history of rash and swelling superior to the left nipple, with associated nipple tenderness. ~ MM MAMMO DIGITAL EHSAN DIAGN LEFT CC and MLO view(s) were taken of the left breast. Technologist: RT Stan The breast tissue is heterogeneously dense. This may lower the sensitivity of mammography. Prior study comparison: Compared with prior studies, the most recent being 11/29/22, 11/26/21. CC and MLO views of the left breast were performed. Compared to prior mammograms, there is evidence of intervally increased left breast skin thickening. Prior lumpectomy site in the left breast upper outer quadrant, and partially included postsurgical changes in the left axilla do not appear significantly changed. No new dominant mass, unexpected architectural distortion, or suspicious calcification is identified in the left breast. ~ Procedure Note Christos Mercado MD - 07/12/2023 Procedure:MM MAMMO DIGITAL EHSAN DIAGN LEFT ~ Reason for exam: clinical finding. Z85.3-Personal history of malignant neoplasm of uqonit-RIN-06-CM N64.89-Other specified disorders of rmgdts-GRM-48-CM N64.6-Dvujobauws-DML-10-CM; 63-year-old with history of left breast invasive ductal carcinoma, metastatic to left axillary lymph nodes,status post lumpectomy in October 2020. The patient also had chemoradiation. Currently, the patient reports a one month history of rash and swelling superior to the left nipple, with associated nipple tenderness. Z85.3-Personal history of malignant neoplasm of webwwz-XMQ-56-CM N64.89-Other specified disorders of biwask-DYT-80-CM N64.6-Vvlyxrdavp-LHV-10-CM; 63-year-old with history of left breast invasive ductal carcinoma, metastatic to left axillary lymph nodes,status post lumpectomy in October 2020. The patient also had chemoradiation. Currently, the patient reports a one month history of rash and swelling superior to the left nipple, with associated nipple tenderness. ~ MM MAMMO DIGITAL EHSAN DIAGN LEFT CC and MLO view(s) were taken of the left breast. Technologist: RT Stan The breast tissue is heterogeneously dense. This may lower thesensitivity of mammography. Prior study comparison: Compared with prior studies, the most recentbeing 11/29/22, 11/26/21. CC and MLO views of the left breast were performed. Compared to prior mammograms, there is evidence of intervally increased left breast skin thickening. Prior lumpectomy site in the left breast upper outerquadrant, and partially included postsurgical changes in the left axilla do not appear significantly changed. No new dominant mass, unexpected architectural distortion, or suspicious calcification is identified inthe left breast. ~ IMPRESSION: Incomplete-need additional imaging evaluation (NNI-Ihlggftj-0) Intervally increased left breast skin thickening. Otherwise stable left mammograms, including stable postsurgical changes from left lumpectomyand axillary lymph node dissection. The region of patient reported swellingand rash, greatest superior to the left nipple, will be further evaluatedwith targeted ultrasound. ~ RECOMMENDATION: Ultrasound of the left breast. This ultrasound examination will be performed on the same date andreported separately. ~ DISCLAIMER * Any patient with a palpable abnormality, unexplained by breast imaging, should be managed on clinical basis by the attending physician. * Breast imaging has a false negative rate of 15%. * The patient was notified by mail of the results of this examination. *The patient's information was entered into a reminder system with atarget due date for the next mammogram, in accordance with the [place] [employer] and the Society of Breast Imaging recommendations. Mei Talley APRN [facility] MAMMO[facility]AP[facility] ORDERABLE S Final Result * COLONOSCOPY (03/01/2023 2:58 PM EDT) Anatomical Region Laterality Modality Endoscopy Narrative 03/01/2023 3:00 PM EDT Table formatting from the original result was not included. Findings Few diverticula of mild severity in the sigmoid colon Recommendation Repeat colonoscopy in 5 years Exam is normal except for a few sigmoid diverticuli. Patient has history of breast CA, and may be at higher risk for colon CA. Recommend repeat screening colonoscopy in 5-10 years. Indication Screening for colon cancer, high risk Staff Staff Role Barb Hernandez RN Geological Aide Radha Hollingsworth medical equipment technician Nurse Sanchez Hollingsworth MD Performing Provider Medications midazolam (VERSED) injection 5 mg fentaNYL (SUBLIMAZE) injection 100 mcg (Totals for administrations occurring from 1433 to 1458 on 03/01/23) Preprocedure A history and physical has been performed, and patient medication allergies have been reviewed. The patient's tolerance of previous anesthesia has been reviewed. The risks and benefits of the procedure and the sedation options and risks were discussed with the patient. All questions were answered and informed consent obtained. ASA 2 Details of the Procedure The patient underwent moderate sedation, which was administered by the procedural nurse. The patient's blood pressure, heart rate, level of consciousness, oxygen, respirations, ECG and ETCO2 were monitored throughout the procedure. A digital rectal exam was performed. The scope was introduced through the anus and advanced to the cecum. Bowel prep was adequate. The patient experienced no blood loss. The procedure was not difficult. The patient tolerated the procedure well. There were no apparent adverse events. Patient provided education and educated on specific discharge instructions. Patient educated on medications given during the procedure and new medications for discharge. Patient verbalizes understanding of discharge education. Patient stable and awaiting transport for discharge. Events Procedure Events Event Event Time ENDO SCOPE IN TIME 03/01/2023 2:42 PM ENDO CECUM REACHED 03/01/2023 2:48 PM ENDO SCOPE OUT TIME 03/01/2023 2:56 PM Specimens No specimens collected Sanchez Hollingsworth MD ENDOSCOPY PROCEDURE ORDERAB LES Final Result * DX BONE DENSITY AXIAL SKELETON (10/21/2020 12:51 PM EDT) Anatomical Region Laterality Modality Dexa Scan 10/21/2020 Narrative 10/21/2020 2:12 PM EDT Indication: The patient is a post-menopausal female under age 65 with clinical risk factors for an osteoporotic fracture that requires a bone density assessment. Study was performed on [employer] 5. Bone Density: Region BMD T-score Z-score AP Spine (L1-L4) 1.038 -0.1 1.4 Femoral Neck (Right) 0.803 -0.4 0.9 Total Hip (Right) 0.990 0.4 1.4 1/3 Radius (Left) 0.697 0.1 1.4 World Health Organization criteria for BMD interpretation classify patients as: Normal (T-score at or above -1.0), Low Bone Density (T-score between -1.0 and -2.5), or Osteoporotic (T-score at or below -2.5). T Scores are reported in Postmenopausal women and in men age 50 and older. Z-scores are reported in females prior to menopause and in males younger than age 50. 10-year Fracture Risk: FRAX not reported because: All T-scores for Spine Total, Hip Total, Femoral Neck at or above -1.0 Previous Exams: Region Date Age BMD T-score BMD Change AP Spine(L1-L4) 10/21/2020 60 1.038 -0.1 -0.6% 09/24/2016 56 1.044 0.0 Total Hip(Right) 10/21/2020 60 0.990 0.4 -1.7% 09/24/2016 56 1.007 0.5 *Denotes significance at 95% confidence level, LSC for AP Spine = 0.032g/cm2, LSC for Total Hip = 0.024 g/cm2, LSC for Distal 1/3 Radius = 0.026 g/cm2, site specific LSC for AP Spine = 0.032 g/cm2, site specific LSC for Total Hip = 0.022 g/cm2 BMD is shown in g/cm2 and BMD Change indicates change vs previous BMD Clinical Information Provided by Patient: Has used or is currently using the following medications: Aromatase Inhibitors, Vitamin D, Chemotherapy drugs, Thyroid medication Has had or currently has the following medical conditions: Breast Cancer, Vitamin D Insufficiency Patient maximum height was 67 Menopause Age: 55 Patient is Postmenopausal. Has low body mass. Interpretation: Bone mineral density is in the low bone density range. Medical evaluation for secondary causes of low bone mineral density may be appropriate. A minimum of two years may be required between bone density studies due to inherent testing precision limitations. Intervals between BMD testing should be determined according to each patient's clinical status: typically one year after initiation or change in therapy is appropriate, with longer intervals once therapeutic effect is established. The spine bone mineral density is not significantly changed since the last exam. The right hip bone mineral density is not significantly changed since the last exam. Reported by: Violetta Haque PA-C, MMS, CCD on 10/21/2020 1:16:00 PM. us Charlotte Alvarado MD IMG DEXA ORDERABLES Final Result from Last 3 Months or Most Recently Relevant to Health Maintenance Insurance MEDICARE [place] PART A AND B COMMERCIAL GENERIC [facility] AETNA MEDICARE [place] PART A AND B Care Teams Regional Planner Relationship Specialty Start Date End Date Yony Walker MD [address] [facility] [address] [place] [address] PCP - General Family Medicine 04/07/20 Charlotte Alvarado MD [address] [facility] [address] Medical Oncologist Internal Medicine-Hematology and Oncology 05/14/20
--- OUTSIDE RECORDS SUMMARY | 2025-01-19 10:25 | XMS_ITS | Encounter Summary ---
Author Organization [facility] [address] Care Team Providers Care Yarn Twister Name Role Phone Yony Walker MD Primary Care Provider [phone] Charlotte Alvarado MD Unavailable [phone]- [phone] Encounter Details Date Type Department Care Team (Latest Contact Info) Description 01/03/2025 Travel Social History Tobacco Use Types Packs/Day Years [...] AM EDT Appointment [facility] [place] [address] 02/01/2025 9:15 AM EDT [facility]ointment [facility] [place], [place] [id number] Charlotte Alvarado MD [address] [place] [address] [id number] 02/01/2025 9:30 AM EDT Appointment [facility] [place], [place] [id number] 02/08/2025 10:30 AM EDT Appointment [facility] [place], [place] [id number] 03/01/2025 10:00 AM EDT Appointment [facility] [place], [place] [id number] 03/01/2025 10:30 AM EDT Appointment [facility] [place], [place] [id number] Charlotte Alvarado MD [address] [place] [id number] 03/01/2025 11:00 AM EDT [facility] [address] 03/08/2025 10:30 AM EDT Appointment [facility] [place], [place] [phone] 04/02/2025 11:20 AM EDT Office Visit [facility] Pul[facility] [address] [address] Melony Paula, PRINCIPAL ARCHITECT [address] [place] [address] documented as of this encounter Goals Goal [...] on filedocumented in this encounter Care Teams Yarn Twister Relationship Specialty Start Date End Date Yony Walker MD [address] [facility] [address] [place] [id number] PCP - General Family Medicine 04/07/20 Charlotte Alvarado MD [address] [facility] [place] [id number] Medical Oncologist Internal Medicine-Hematology and Oncology 05/14/20 documented as of this encounter
--- OUTSIDE RECORDS SUMMARY | 2025-01-19 10:26 | XMS_ITS | Encounter Summary ---
Author Organization [place] [address] Care Team Providers Care Manganese Breaker Name Role Phone Yony Walker MD Primary Care Provider [phone] Charlotte Alvarado MD Unavailable [phone]- [phone] Reason for Visit * Reason Onset Date Comments Paperwork/forms 12/28/2024 Lymphedema Pump order Encounter Details Date Type Department Care Team (Late st Contact Info) Description 12/28/2024 Telephone [facility] [place] [address] Charlotte Alvarado MD [address] [place] [address] [phone] Paperwork/forms (Lymphedema Pump order ) Social History Tobacco Use Types Packs/Day Years [...] encounter Miscellaneous Notes * Telephone Encounter - Chata Harris MA - 12/31/2024 9:36 AM EDT Spoke with [facility] and he stated he would update the paperwork and bring in to the office today to be signed. * Telephone Encounter - Chata Harris MA - 12/31/2024 8:28 AM EDT Anamaria is on maternity leave, so this will have to be signed by Dr. Alvarado. I can have her sign the new order today. I will place a call to [facility] to let him know. Chata * Telephone Encounter - Yoly Contreras NA - 12/28/2024 3:45 PM EDT Reason for call: [facility] with [facility] called on the order LUIS ENRIQUE Alegria has signed twice before for pts Lymphedema Pump. They had BRENT wong name on the paperwork and had to updated it [facility] faxed the new order for LUIS ENRIQUE to date and sign to [phone] [facility] asking that it get signed and dates joy due to having the order be redone 3 times Geraldine fax number: [phone] [facility] requesting call back with update once received Preferred call back number:[phone] documented in this encounter Plan of Treatment Upcoming Encounters Date Type Department Care Team (Late st Contact Info) Description 02/01/2025 8:45 AM EDT Appointment [place] [address] 02/01/2025 9:15 AM EDT [facility]ment [facility] [place] [address] Charlotte Alvarado MD [address] [place] [address] 02/01/2025 9:30 AM EDT Appointment [facility] [place] [address] 02/08/2025 10:30 AM EDT Appointment [facility] [place] [address] 03/01/2025 10:00 AM EDT Appointment [place] [address] 03/01/2025 10:30 AM EDT [facility]ointment [facility] [place] [address] Charlotte Alvarado MD [address] [place] [address] 03/01/2025 11:00 AM EDT Appointment [facility] [place] [address] 03/08/2025 10:30 AM EDT Appointment [place] [place] [address] 04/02/2025 11:20 AM EDT Office Visit [facility] Pul[facility]ology [facility] [address] [facility] [address] [place] [address] Melony Paula SLABBER [address] [place] [id number] documented as of this encounter Goals Goal Patient Goal Type Associated Problems Recent Progress Patient-Stated? Author Breast Health Breast Health On track(2020 11:50 AM EDT) Rebecca Gieger, RN Note: Patient acknowledges understanding of new [...] on filedocumented in this encounter Care Teams Manganese Breaker Relationship Specialty Start Date End Date Yony Walker MD [address] [facility] [address] [place] [phone] PCP - General Family Medicine 04/07/20 Charlotte Alvarado MD [address] [facility] [place] [address] Medical Oncologist Internal Medicine-Hematology and Oncology 05/14/20 documented as of this encounter
--- OUTSIDE RECORDS SUMMARY | 2025-01-19 10:26 | XMS_ITS | Encounter Summary ---
Author Organization [place] [address] Care Team Providers Care Wind Turbine Service Technician Name Role Phone Yony Walker MD Primary Care Provider [phone] Charlotte Alvarado MD Unavailable [phone]- [phone] Encounter Details Date Type Department Care Team (Late st Contact Info) Description 12/07/2024 Plan of Care Documentation [facility] Physical Therapy [address] [place] [address] Social History Tobacco Use Types Packs/Day Years [...] as of this encounter Miscellaneous Notes * Therapist Plan of Care - Denisa Dueñas, PT - 12/07/2024 3:42 PM EDT Images from the original note were not included. Please sign to acknowledge agreement with this updated plan of care. Lymphedema PT Reassessment/Treatment Note (Reassessment for dates 10/19/24 to 12/07/24) Patient Name: Michelle Nolan : 1960 Visit #: 2 Onset Date: 09/06/24 Diagnosis: Lymphedema of left arm Invasive ductal carcinoma of breast, female, left (HCC) Restrictions/Precautions: [place] Hx [place] Referring Physician: Charly Radiation Oncologist: Dr. Myrick Medical Oncologist: Dr. Alvarado Surgeon: Dr. Tahmina HERRERA Follow Up: 12/10/24 Evaluation Date: 10/19/2024 Reassessment Due: 01/06/25 Primary Insurance: MEDICARE/MEDICARE [place] PART A AND B Secondary Insurance: [employer] Insurance Authorization: AMB REFERRAL TO PHYSICAL THERAPY Authorized (09/14/2024-09/14/2025) Visits Requested Visits Authorized Visits Completed Visits Scheduled Details Referral ID: [id number] Authorization Status Reason: Covered Benefit Authorization Comments: -- Referred To: Denisa Dueñas, PT at [facility] Referred By: Aster Parks APRN at [facility] Creation Date: 09/14/2024 Referral Reasons: Specialty Services [...] donning/doffing. [] Unmet [] Progressing [x] Met Field Crops Harvest Machine Operator Goals: (set for 6 weeks) Patient will [...] AM EDT Appointment [facility] [place] [address] 02/01/2025 9:15 AM EDT [facility]ointment [facility] [place] [address] Charlotte Alvarado MD [address] [place] [address] 02/01/2025 9:30 AM EDT Appointment [place] [address] 02/08/2025 10:30 AM EDT Appointment [facility] [place] [address] 03/01/2025 10:00 AM EDT Appointment [facility] [place] [address] 03/01/2025 10:30 AM EDT Appointment [facility] [place] [address] Charlotte Alvarado MD [address] [place] [address] 03/01/2025 11:00 AM EDT Appointment [facility] [place] [address] 03/08/2025 10:30 AM EDT Appointment [facility] [place] [id number] 04/02/2025 11:20 AM EDT Office Visit [facility] [address] [facility] [address] [place] [address] Melony Paula, SENIOR VISUAL DESIGNER [address] [place] [address] documented as of this encounter [...] on filedocumented in this encounter Care Teams Wind Turbine Service Technician Relationship Specialty Start Date End Date Yony Walker MD [address] [facility] [address] [facility] [address] PCP - General Family Medicine 04/07/20 Charlotte Alvarado MD 1 [facility] [place] [address] Medical Oncologist Internal Medicine-Hematology and Oncology 05/14/20 documented as of this encounter
--- OUTSIDE RECORDS SUMMARY | 2025-01-19 10:26 | XMS_ITS | Encounter Summary ---
Author Organization [place] [address] Care Team Providers Care Six Horse Hitch Driver Name Role Phone Yony Walker MD Primary Care Provider [phone] Charlotte Alvarado MD Unavailable [phone] Reason for Visit * Reason Onset Date Comments Other 01/01/2025 Encounter Details Date Type Department Care Team (Late st Contact Info) Description 01/01/2025 Telephone [facility] [address] [address] Maryanne Lawler MD [address] [place] [address] Other Social History Tobacco Use Types Packs/Day [...] Encounter - Edith De Guzman MA - 01/01/2025 9:59 AM EDT Thank you * Telephone Encounter - Cammie Ibrahim - 01/01/2025 9:18 AM EDT Psr presented the question to patient Can you do 01-15 at 12:30 at [facility] Patient said yes * Telephone Encounter - Edith De Guzman MA - 01/01/2025 9:03 AM EDT Called pt asked to call back to confirm to bronch time Pt already has instructions from being in office yesterday * Telephone Encounter - Edith eD Guzman MA - 01/01/2025 9:03 AM EDT ----- Message from Maryanne Lawler MD sent at 01/01/2025 8:54 AM EDT ----- Regarding: RE: booking Yes ----- Message ----- From: Cassie Osorio Sent: 01/01/2025 8:13 AM EDT To: Maryanne Lawler MD; Edith De Guzman MA Subject: booking This request is for an EBUS at [facility] on 01/15/25 at 12:00. Are you able to do 01/15/25 at 12:[address] [facility]?Thanks. documented in this encounter Plan of Treatment Upcoming Encounters Date Type Department Care Team (Late st Contact Info) Description 02/01/2025 8:45 AM EDT Appointment [facility] [place], [place] [id number] 02/01/2025 9:15 AM EDT Appointment [facility] [place], [place] [id number] Charlotte Alvarado MD [address] [place] [id number] 02/01/2025 9:30 AM EDT Appointment [facility] [place] [address] 02/08/2025 10:30 AM EDT Appointment [facility] [place] [address] 03/01/2025 10:00 AM EDT Appointment [facility] [place] [address] 03/01/2025 10:30 AM EDT Appointment [facility] [place] [address] Charlotte Alvarado MD [address] [place] [address] 03/01/2025 11:00 AM EDT Appointment [facility] [place] [address] 03/08/2025 10:30 AM EDT [facility] [place] [id number] 04/02/2025 11:20 AM EDT Office Visit [facility] Pulmonology [facility] [address] [address] Melony Paula, ENVIRONMENTAL REMEDIATION SPECIALIST [address] [place] [address] documented as of this encounter Goals Goal [...] on filedocumented in this encounter Care Teams Six Horse Hitch Driver Relationship Specialty Start Date End Date Yony Walker MD [address] [facility] [address] [place] [address] PCP - General Family Medicine 04/07/20 Charlotte Alvarado MD 1 [facility] [place] [address] Medical Oncologist Internal Medicine-Hematology and Oncology 05/14/20 documented as of this encounter
--- OUTSIDE RECORDS SUMMARY | 2025-01-19 10:26 | XMS_ITS | Encounter Summary ---
Author Organization [place] [address] Care Team Providers Care Senior Administrative Support Name Role Phone Omar Walker MD Primary Care Provider [phone] Yony Walker MD Primary Care Provider [phone] Charlotte Alvarado MD Unavailable [phone] Molly Miller RN Unavailable Unavailab Natalie Sinclair [...] RN Unavailable Unavailable Irene Cheema RN Unavailable Unavailabl e Scout, Sirisha RN Unavailable Unavailable Anna Raymundo RN Unavailable Unavailable Encounter Details Date Type Department Care Team (Late st Contact Info) Description 03/12/2020 Orders Only [facility] [place] [id number] Janessa Dietrich MD 1 [place] [id number] Social History Tobacco Use Types Packs/Day Years Used Date Smoking Tobacco: Never Smokeless Tobacco: Never Alcohol Use Standard Drinks/Week Comments No 0 (1 standard drink = 0.6 oz pur e alcohol) Comments No Sex and Gender Information Value Date Recorded Sex Assigned at Not on file Legal Sex Female 10:38 AM EST Gender Identity Not on file Sexual Orientation Not on file COVID-19 Exposure Response Date Recorded In the last month, have you been in contact with someone who was confirmed or suspected to have Coronavirus / COVID-19? No / Unsure 03/14/2020 11:27 AM EDT documented as of this encounter Plan of Treatment Upcoming Encounters Date Type Department Care Team (Late st Contact Info) Description 02/01/2025 8:45 AM EDT Appointment [facility] [place] [id number] 02/01/2025 9:15 AM EDT Appointment [facility] [place] [address] Charlotet Alvarado MD 1 [place] [address] 02/01/2025 9:30 AM EDT Appointment [facility] [place], [place] [id number] 02/08/2025 10:30 AM EDT Appointment [facility] [place], [place] [id number] 03/01/2025 10:00 AM EDT Appointment [place] [address] 03/01/2025 10:30 AM EDT Appointment [place] [address] Charlotte Alvarado MD [address] [place] [id number] 03/01/2025 11:00 AM EDT Appointment [facility] [place], [place] [id number] 03/08/2025 10:30 AM EDT [place]ointment [place] [address] 04/02/2025 11:20 AM EDT Office Visit [facility] Pul[facility] [address] [facility] [address] [place] [address] Melony Paula, BRIDGE RIGGER [address] [place] [address] documented as of this encounter Procedures Procedure Name Priority Date/Time Associated Diagnosis Comments NEOGENOMICS BREAST PANEL (3 STAIN) Routine 03/12/2020 11:31 AM EDT documented in this encounter Results * NEOGENOMICS BREAST PANEL (3 STAIN) (03/12/2020 11:31 AM EDT) [employer] Result H&E (Comments) = Invasive ductal carcinoma, grade 2 ER (Result) = LOW POSITIVE ER (Tumor Stained) = 4% ER (Intensity) = 3+ ER (Kimani Score) = 5 ER (Internal Control) = Present, Positive PgR (Result) = POSITIVE PgR (Tumor Stained) = 2% PgR (Intensity) = 3+ PgR (Kimani Score) = 5 PgR (Internal Control) = Present, Positive HER2 Breast (Result) = NEGATIVE HER2 Breast (Score) = 0 HER2 Breast (Percentage of Cells with Uniform Intense Complete Membrane Staining) = 0% ER (Reference Ranges) = Positive: >10% Low Positive: 1-10% Negative: <1% PgR (Reference Ranges) = Positive: >/=1% Negative: <1% HER2 Breast (Reference Ranges) = Positive: 3+ Equivocal: 2+ Negative: 1+ Negative: 0 ER (Intended Use) = ER belongs to [...] (SERMs) and aromatase inhibitors. The College of [place] Pathologists (CAP) and [place] Society of Clinical Oncology (ASCO) have recommended [...] used to evaluate ER (Kimani DC, Morris EDMARCO, Garrison M, and Cayden GM. Prognostic and [...] small sample (<100 tumor cells), or when ER/LA results are negative in tumor subtypes that [...] used for detection. PgR (Intended Use) = LA belongs to a superfamily of nuclear hormone receptors. ER induces LA expression, and therefore LA status serves as an indicator of an intact ER pathway. There are two known isoforms of LA; PRa and LA . The current assays in clinical breast cancer measure both isoforms. LA is expressed in about 60-70% of invasive breast cancers. It is a weak prognostic factor by itself but a modest predictive factor that adds to the predictive value of ER for response to endocrine therapies, both in adjuvant and metastatic settings. The primary indication to assess LA in breast cancer is to predict response to hormonal therapies, such as tamoxifen, other selective estrogen receptor modulators (SERMs) and aromatase inhibitors. The College of [place] Pathologists (CAP) and [place] Society of Clinical Oncology (ASCO) have recommended that LA should be measured in all primary breast cancers using validated biochemical or immunohistochemical methods. Scoring/interpretation : LA immunostaining is scored in our laboratory as the percentage of positive staining tumor nuclei on the examined slide. We use a cut-off level of 1% in our laboratory based on comparison of our results to that of a clinically validated LA assay, as determined by two large clinical studies. Analyzed sections should be from specimens fixed in formalin for a minimum of 6 to 8 hours and no more than 72 hours in accordance with CAP/ASCO published guidelines. An optional Kimani Score may be provided which can be used to evaluate LA stains (Kimani DC, Morris DEMARCO, Garrison M, [...] staining was performed utilizing the FDA approved [place] Pathway anti-HER-2/alexsandra antibody (clone [id number]) staining procedure of FFPE specimens using the [place] Benchmark Ultra. However, instead of using the indicated rabbit polyclonal negative reagent control stated in the Instruction for Use, a rabbit monoclonal negative reagent control was used to detect nonspecific staining. Although this minor reagent control substitution is inconsistent with the FDA approval for [place] Pathway HER2, the test remains consistent with [...] Factor Receptor 2 Testing in Breast Cancer: [place] Society of Clinical Oncology/College of Citizen Of [place] Pathologists Clinical Practice Guideline Focused Update. Arch Pathol Lab Med. 2018;142(11):9517-8545 . Neg Control (Control Statement) = The digitized slide(s) was/were adequate for quantitative image analysis. All controls were reviewed and showed appropriate positive and negative immunoreactivity. Neg Control (Image Analysis Statement) = Whole slide image capture was performed with the [employer] ScanScope and quantitative computer-assisted image analysis using Evolita software. [facility] 03/12/2020 11:3 1 AM EDT Narrative [facility] - 03/18/2020 9:22 AM EDT Requesting Provider: Tami Juarez Specimen = [id number] us Janessa Dietrich MD PATHOLOGY ORDERABLES Final Resul t [facility] [address] [place], [place] [id number] documented in this encounter Visit Diagnoses Not on filedocumented in this encounter Care Teams Senior Administrative Support Relationship Specialty Start Date End Date Omar Walker MD [address] [facility] [address] [place] [address] PCP - General Psychiatry & Neurology-Neurology 08/08/15 04/06/20 Yony Walker MD 1210 [facility] [address] [place] [address] PCP - General Family Medicine 04/07/20 JennyCharlotte christopher MD 1 [place], [place] [id number] Medical Oncologist Internal Medicine-Hematology and Oncology 05/14/20 Molly Miller, RN Registered Nurse 11/25/23 11/25/23 Natalie Valadez, ANITA Registered Nurse Infusion Therapy 12/02/23 12/02/23 Talya Marina, RN Registered Nurse Infusion Therapy 12/16/23 12/16/23 David Littlejohn, ANITA Registered Nurse Infusion Clinic 12/23/23 4 Georges Chapman, ANITA Registered Nurse Infusion Therapy 01/06/24 Precious Jain, ANITA Registered Nurse Infusion Therapy [...] Nurse Infusion Therapy 11/16/24 11/16/24 Irene Cheema, line therapist Therapy 12/10/24 12/10/24 Sirisha Butterfield, RN Registered Nurse Infusion Therapy 01/04/25 01/04/25 Anna Raymundo, RN Registered Nurse Infusion Therapy 01/11/25 01/11/25 documented as of this encounter
== END 2025-01-18 23:59 | disposition home or self-care (01) ==
LOC: LAB.DROPOF 01-19 10:23
PROVIDERS: PCP Nurse Practitioner Family; Visit Provider Nurse Practitioner Family
DX: R49.0 Dysphonia (principal); R05.9 Cough, unspecified; J02.9 Acute pharyngitis, unspecified
CPT/HCPCS: 87070